=== PATIENT | male | born 1950 | race Two or more races ===

== ENCOUNTER 2016-07-27 09:58 | Emergency (ER) | payer MEDICARE, OTHER ==
[~2016-07-27] VITALS: Ht 165.1 cm; Wt 70.3 kg
[~2016-07-27 09:58] MED LIST: FLUO20CA36 PO; FOLI1TAB16 PO; GLIP5TAB13 PO; METO25TA6 PO; MIRT30TA8 PO; PYRI50TA9 PO; SEVE800T PO
[2016-07-27 12:05] VITALS: BP 125/65
== END 2016-07-27 12:16 | disposition home or self-care (01) ==
LOC: ER 10:45
DX: R05 Cough (principal); E11.9 Type 2 diabetes mellitus without complications; I12.0 Hypertensive chronic kidney disease with stage 5 chronic kidney disease or end stage renal disease; Z99.2 Dependence on renal dialysis; G62.9 Polyneuropathy, unspecified; H54.0 Blindness, both eyes; N18.6 End stage renal disease
CPT/HCPCS: 71020; 99284; A4606; Z7610

== ENCOUNTER 2017-05-31 07:05 | Inpatient (IN) | payer MEDICARE, OTHER ==
[~2017-05-31] VITALS: Ht 165.1 cm; Wt 68.5 kg
--- NOTE | 2017-05-31 07:07 | NUR ---
AAOX3, BIBRA 89 FROM [facility] FOR WEAKNESS AND DROWSY. PATIENT NORMALLY WALKS AFTER DIALYSIS BUT TODAY PATIENT WAS WEAK. SKIN IS WARM AND DRY. RESP IS EVEN AND UNLABORED WITH NAD NOTED. PATIENT FINISHED THE DIALYSIS. DR DIETRICH AT BS FOR EVAL.
[2017-05-31 07:26] LABS: BASOPHILS % (AUTO) 0.4 % (0.0-2.0); EOSINOPHILS # (AUTO) 0.1 /CMM (0.0-0.7); EOSINOPHILS % (AUTO) 1.7 % (0.0-6.0); HEMATOCRIT 29 % (39-51); HEMOGLOBIN 9.9 g/dL (13.5-17.5); LYMPHOCYTES # (AUTO) 0.5 /CMM (0.8-4.8); LYMPHOCYTES % (AUTO) 6.2 % (20.0-44.0); MEAN CORPUSCULAR HEMOGLOBIN 32 PG (26.0-33.0); MEAN CORPUSCULAR HGB CONC 34 g/dl (31.0-36.0); MEAN CORPUSCULAR VOLUME 94 fL (80-96); MONOCYTES # (AUTO) 0.7 /CMM (0.1-1.30); MONOCYTES % (AUTO) 9.2 % (2.0-12.0); NEUTROPHILS # (AUTO) 6.5 /CMM (1.8-8.9); NEUTROPHILS % (AUTO) 82.5 % (43.0-81.0); PLATELET COUNT (AUTO) 323 /CMM (150-450); RDW COEFFICIENT OF VARIATION 16.1 (11.5-15.0); RED BLOOD CELL COUNT(AUTO) 3.11 MIL/uL (4.5-6.0); WHITE BLOOD COUNT (AUTO) 7.9 K/uL (4.3-11.0)
[2017-05-31 07:35] LABS: CALCIUM, SERUM 9.1 mg/dL (8.5-10.1); CARBON DIOXIDE 36 mmol/L (21-32); CHLORIDE 97 mmol/L (98-107); CREATININE 4.6 mg/dL (0.6-1.3); GLUCOSE 111 mg/dL (74-106); POTASSIUM 3.6 mmol/L (3.5-5.1); SODIUM SERUM 140 mmol/L (136-145); UREA NITROGEN, BLOOD 20 mg/dL (7-18)
[2017-05-31 07:41] LABS: ALANINE AMINOTRANSFERASE 24 U/L (12-78); ALBUMIN 4.2 g/dL (3.4-5.0); ALKALINE PHOSPHATASE 93 U/L (46-116); ASPARTATE AMINOTRANSFERASE 5 U/L (15-37); BILIRUBIN,DIRECT 0.1 mg/dL (0.0-0.2); BILIRUBIN,TOTAL 0.6 mg/dL (0.2-1.0); TOTAL PROTEIN, SERUM 8.1 g/dL (6.4-8.2)
[2017-05-31 07:44] LABS: TROPONIN I < 0.017 ng/mL (0.00-0.056)
[2017-05-31 07:47] LABS: INR 0.94 (0.87-1.13); PROTHROMBIN TIME 9.8 SECS (9.5-12.7)
[2017-05-31] MEDS ORDERED: AMLO10TA2 PO (08:37)
[2017-05-31] MEDS ORDERED: LISI40TA4 PO (08:37)
[2017-05-31] MEDS ORDERED: FOLI0.8T23 PO (08:37)
[2017-05-31] MEDS ORDERED: METO2.5T2 PO (08:37)
[2017-05-31] MEDS ORDERED: FERR-58 PO (08:37)
[2017-05-31] MEDS ORDERED: POLY17PO4 PO (08:37)
[2017-05-31] MEDS ORDERED: TRAM50TA2 PO (08:37)
[2017-05-31] MEDS ORDERED: LABE100T PO (08:37)
[2017-05-31] MEDS ORDERED: FURO80TA85 PO (08:37)
[2017-05-31] MEDS ORDERED: ESOM40CA PO (08:37)
[2017-05-31] MEDS ORDERED: CYAN10006 IM (08:37)
[2017-05-31] MEDS ORDERED: SEVE800T8 PO (08:41)
[2017-05-31] MEDS ORDERED: DULO30CA2 PO (08:41)
[2017-05-31] MEDS ORDERED: POTA20TA83 PO (08:41)
[2017-05-31] MEDS ORDERED: PREG50CA PO (08:41)
[2017-05-31] MEDS ORDERED: GABA-534 PO (08:41)
--- NOTE | 2017-05-31 08:44 | NUR ---
panel on-call paged
--- NOTE | 2017-05-31 09:24 | NUR ---
[facility] nephrology on-call paged for admission
--- NOTE | 2017-05-31 09:51 | NUR ---
no call back from [facility] nephrology, paged again
--- NOTE | 2017-05-31 10:27 | NUR ---
REPORT GIVEN TO MARCOS MORRIS FOR 323.
[2017-05-31] MEDS ORDERED: CEFTRIAXONE 1GM BAG (ER ONLY) 50 ML IV ONE (10:30)
[2017-05-31 11:00] VITALS: BP 166/73
[2017-05-31] MEDS ORDERED: CEFTRIAXONE 1 G in IV D5W 50 ML IV ONE (11:00)
--- NOTE | 2017-05-31 11:00 | NUR ---
RN NOTES PATIENT AWAKE ALERT X2 AND VERBALLY RESPONSIVE, ABLE TO MAKE NEEDS KNOWN, RESPIRATIONS EVEN AND UNLABORED, DENIES ANY PAIN OR DISCOMFORT AT THIS TIME. LAC IV SITE PATENT AND INTACT, NO REDNESS OR INFILTRATION NOTED. DR. ROJAS AWARE OF PATIENTS ARRIVAL TO UNIT WILL CONTINUE TO CARRY OUT ALL ADMITTING ORDERS. SAFETY MEASURES IN PLACE, CLEAN, DRY AND COMFORTABLE, CALL LIGHT WITHIN EASY REACH WILL CONTINUE TO MONITOR
[2017-05-31] MEDS ORDERED: ONDANSETRON HCL/PF 4 MG/2 ML VIAL IV PRN (12:30)
[2017-05-31] MEDS ORDERED: hydrALAZINE HCL 25 MG TABLET PO PRN (12:30)
[2017-05-31] MEDS: ACETAMINOPHEN 650 MG/20.3 ML UDC PO PRN ×2 (13:57→20:33)
[2017-05-31] MEDS: PREGABALIN 25 MG CAPSULE PO SCH ×2 (13:57→17:08)
--- NOTE | 2017-05-31 13:57 | NUR ---
RN NOTES TYLENOL GIVEN FOR TEMP 100.6 MD AWARE CONTINUE TO MONITOR AND PROVIDE COOLING MEASURES PRN
[2017-05-31 16:00] VITALS: BP 148/66
[2017-05-31] MEDS ORDERED: FEE PK DOSING 1 MIN EA MC ONE (16:28)
[2017-05-31] MEDS ORDERED: DEXTROSE 50%-WATER 50 ML DISP.SYRIN IV PRN (16:30)
[2017-05-31] MEDS ORDERED: VANCOMYCIN 500 MG in IV D5W 100 ML IV PRN (16:30)
[2017-05-31] MEDS ORDERED: *INSULIN REGULAR(HUMULIN R)HUM 100 UNIT/ML VIAL SQ PRN (16:30)
[2017-05-31] MEDS ORDERED: VANCOMYCIN 1 GM in IV D5W 250 ML IV ONE (17:00)
--- NOTE | 2017-05-31 17:00 | NUR ---
RN NOTES STRAIGHT CATH ATTEMPTED TO COLLECT URINE SPECIMEN, NO URINE OUTPUT NOTED, UNABLE TO OBTAIN SAMPLE WILL CONTINUE TO ATTEMPT AND ENDORSE TO NEXT SHIFT IF UNABLE, PT REFUSES TO TAKE PICTURE OF L AV FISTULA WILL REATTEMPT AT LATER TIME AND ENDORSE TO ONCOMING SHIFT
[2017-05-31] MEDS: FUROSEMIDE 80 MG TABLET PO SCH (17:08)
[2017-05-31] MEDS: OSELTAMIVIR PHOSPHATE 75 MG CAPSULE PO SCH (17:08)
[2017-05-31] MEDS: LABETALOL HCL (100MG) 100 MG TABLET PO SCH (17:09)
[2017-05-31] MEDS: SEVELAMER CARBONATE 800 MG TABLET PO SCH (17:09)
[2017-05-31] MEDS: BLOOD SUGAR DIAGNOSTIC 1 EACH STRIP IN SCH ×2 (17:17→22:25)
[2017-05-31] MEDS: INSULIN REGULAR, HUMAN 100 UNIT/ML 3 ML VIAL SQ PRN (17:49)
[2017-05-31] MEDS: MEROPENEM 500 MG in IV NS 0.9% 50 ML IV SCH (18:19)
--- NOTE | 2017-05-31 19:05 | NUR ---
RN NOTES PATIENT AWAKE ALERT X2 AND VERBALLY RESPONSIVE, ABLE TO MAKE NEEDS KNOWN, RESPIRATIONS EVEN AND UNLABORED, DENIES ANY PAIN OR DISCOMFORT AT THIS TIME. RAC IV SITE PATENT AND INTACT, NO REDNESS OR INFILTRATION NOTED R AV FISTULA WITH POSITIVE BRUIT AND THRILL NO BLEEDING NOTED. RAPID INFLUENZA AND SPUTUM SPECIMEN SENT TO LAB, SAFETY MEASURES IN PLACE, CLEAN, DRY AND COMFORTABLE, CALL LIGHT WITHIN EASY REACH WILL CONTINUE TO MONITOR,TEMP NOTED AT 100.2 COOLING MEASURES PROVIDED ORDERED TYLENOL TO BE GIVEN WHEN DUE, ENDORSED TO NEXT SHIFT FOR CONTINUITY OF CARE
--- NOTE | 2017-05-31 19:20 | NUR ---
TELE/RN OPENING NOTES PT AWAKE, HOB ELEVATED HIGH FOWLERS POSITION. ON ROOM AIR, BREATHING EVEN AND UNLABORED. NON PRODUCTIVE COUGH NOTED. A/OX2 OCCITAN SPEAKING. ON TELE MONITOR SHOWING SINUS RHYTHM WITH HEART RATE 73. IV TO RAC PATENT AND INTACT RUNNING IV ABX. SHELBY AV FISTULA NOTED. BED IN LOW/LOCKED POSITION WITH CALL LIGHT IN REACH. SIDE RAILS UPX2. WILL CONTINUE TO MONITOR
[2017-05-31 20:00] VITALS: BP 128/65
--- NOTE | 2017-05-31 20:33 | NUR ---
TELE/RN NOTES PT HAVING TEMP 99.9F PRN TYLENOL ADMINISTERED. WILL RECHECK EFFECTIVENESS
[2017-05-31] MEDS: HEPARIN SODIUM, PORCINE 5000 UNITS/1 ML VIAL SQ SCH (20:34)
[2017-05-31] MEDS: GABAPENTIN 300 MG CAPSULE PO SCH (22:25)
[2017-05-31] MEDS: GUAIFENESIN/D-METHORPHAN HB 5 ML UDC PO PRN (22:30)
--- NOTE | 2017-05-31 22:46 | NUR ---
TELE/RN NOTES TEMP RECHECKED=99.3F POST ADMINISTRATION OF PRN TYLENOL AND COOLING MEASURES. WILL CONTINUE TO MONITOR PT ALSO COMPLAINING OF COUGH. ADMINISTERED PRN ROBITUSSIN ORDERED.
[2017-06-01] VITALS (7 sets, daily range): BP systolic 115–149; BP diastolic 57–81
[2017-06-01] MEDS: MEROPENEM 500 MG in IV NS 0.9% 50 ML IV SCH ×2 (05:27→16:40)
--- NOTE | 2017-06-01 06:02 | NUR ---
TELE/RN NOTES PT HAS ORDER FOR SPUTUM CULTURE. PREVIOUSLY SENT SPECIMEN WAS NOT ENOUGH. ENCOURAGED PT COUGH AND EXPECTORATE MORE TO PROVIDE TO LAB. VERBALIZED UNDERSTANDING. PER PT, ABLE TO URINATE HOWEVER PT DID NOT URINATE THROUGHOUT SHIFT. BLADDER SCANNER SHOWED 14ML. WILL ENDORSE TO DAY SHIFT TO RECHECK
[2017-06-01] MEDS: BLOOD SUGAR DIAGNOSTIC 1 EACH STRIP IN SCH ×4 (06:43→21:48)
[2017-06-01] MEDS: TRAMADOL HCL 50 MG TABLET PO PRN ×2 (06:43→15:41)
--- NOTE | 2017-06-01 07:00 | NUR ---
TELE/RN CLOSING NOTES PT AWAKE, RESTING IN BED. HOB ELEVATED. ON ROOM AIR, BREATHING EVEN AND UNLABORED. A/OX2. TURKMEN/SOME PASHTO SPEAKING. ON TELE MONITOR SINUS RHYTHM WITH HR 69. AFEBRILE FOR REMAINDER OF SHIFT. PT C/O SHARP MEDIAL ABDOMINAL PAIN THAT IS AGGRAVATED WITH COUGHING. ADMINISTERED ULTRAM ORDERED. ENCOURAGED PT TO EXPECTORATE MORE PHLEGM TO BE SENT TO LAB. PT UNABLE TO PROVIDE URINE SAMPLE. IV TO RAC PATENT AND INTACT. SHELBY AV FISTULA NOTED, WRAPPED WITH DRESSING FROM DIALYSIS CENTER. PT REFUSED TO REMOVED DRESSING. BED IN LOW/LOCKED POSITION, CALL LIGHT IN REACH. SIDE RAILS UPX2. PT SLEPT WELL DURING THE SHIFT. WILL ENDORSE TO AM SHIFT LAURO.
--- NOTE | 2017-06-01 07:30 | NUR ---
REFRIGERATION PLANT OPERATOR NOTES PATIENT IN BED, LYING. AWAKE, A/O X2. FORGETFUL, REORIENT. ON TELE MONITOR SINUS RHYTHM HR 79. BREATHING NON LABORED, ON ROOM AIR. INSTRUCTED TO USE CALL LIGHT IF HE NEEDS ASSISTANCE, VERBALIZED UNDERSTANDING. FOR SPUTUM CX AND URINE CX TO FOLLOW UP. WILL CONT TO MONITOR.
[2017-06-01 08:07] LABS: CALCIUM, SERUM 8.4 mg/dL (8.5-10.1); MAGNESIUM 2.3 mg/dL (1.8-2.4); PHOSPHORUS 4.6 mg/dL (2.5-4.9); POTASSIUM 4.2 mmol/L (3.5-5.1)
[2017-06-01 08:13] LABS: BASOPHILS % (AUTO) 0.5 % (0.0-2.0); EOSINOPHILS # (AUTO) 0.1 /CMM (0.0-0.7); EOSINOPHILS % (AUTO) 1.4 % (0.0-6.0); HEMATOCRIT 29 % (39-51); HEMOGLOBIN 9.8 g/dL (13.5-17.5); LYMPHOCYTES # (AUTO) 0.9 /CMM (0.8-4.8); LYMPHOCYTES % (AUTO) 14.7 % (20.0-44.0); MEAN CORPUSCULAR HEMOGLOBIN 32 PG (26.0-33.0); MEAN CORPUSCULAR HGB CONC 33 g/dl (31.0-36.0); MEAN CORPUSCULAR VOLUME 95 fL (80-96); MONOCYTES % (AUTO) 15.2 % (2.0-12.0); NEUTROPHILS # (AUTO) 4.4 /CMM (1.8-8.9); NEUTROPHILS % (AUTO) 68.2 % (43.0-81.0); PLATELET COUNT (AUTO) 274 /CMM (150-450); RDW COEFFICIENT OF VARIATION 15.9 (11.5-15.0); RED BLOOD CELL COUNT(AUTO) 3.09 MIL/uL (4.5-6.0); WHITE BLOOD COUNT (AUTO) 6.5 K/uL (4.3-11.0)
[2017-06-01 08:23] LABS: CREATININE 8.4 mg/dL (0.6-1.3)
[2017-06-01] MEDS: POLYETHYLENE GLYCOL 3350 17 GM POWD.PACK PO SCH (08:55)
[2017-06-01] MEDS: METOLAZONE 2.5 MG TABLET PO SCH (08:56)
[2017-06-01] MEDS: LISINOPRIL (20MG) 20 MG TABLET PO SCH (08:56)
[2017-06-01] MEDS: SEVELAMER CARBONATE 800 MG TABLET PO SCH ×3 (08:56→17:10)
[2017-06-01] MEDS: PREGABALIN 25 MG CAPSULE PO SCH ×3 (08:56→16:22)
[2017-06-01] MEDS: LABETALOL HCL (100MG) 100 MG TABLET PO SCH ×2 (08:56→16:22)
[2017-06-01] MEDS: VIT B CMPLX 3/FA/VIT C/BIOTIN 1 TAB TABLET PO SCH (08:56)
[2017-06-01] MEDS: FUROSEMIDE 80 MG TABLET PO SCH ×2 (08:56→16:22)
[2017-06-01] MEDS: FERROUS SULFATE (325 MG) 325 MG/TAB TABLET PO SCH (08:57)
[2017-06-01] MEDS: DULOXETINE HCL 30 MG CAPSULE.DR PO SCH (08:57)
[2017-06-01] MEDS: AMLODIPINE BESYLATE 10 MG TABLET PO SCH (08:57)
[2017-06-01] MEDS: OSELTAMIVIR PHOSPHATE 75 MG CAPSULE PO SCH (08:57)
[2017-06-01] MEDS: PANTOPRAZOLE 40 MG TABLET.DR PO SCH (08:58)
[2017-06-01] MEDS: HEPARIN SODIUM, PORCINE 5000 UNITS/1 ML VIAL SQ SCH ×2 (09:06→21:44)
[2017-06-01] MEDS: INSULIN REGULAR, HUMAN 100 UNIT/ML 3 ML VIAL SQ PRN ×2 (11:34→16:38)
--- NOTE | 2017-06-01 12:03 | NUR ---
CREATININE 8.[address] YOSSI SCHMITZ, PATIENT TO HAVE DIALYSIS IN AM. MD IS AWARE OF PATIENTS ABDOMINAL PAIN, FOR GI CONSULT.
[2017-06-01 13:53] LABS: BASOPHILS % (MANUAL) 0 % (0.0-2.0); EOSINOPHILS % (MANUAL) 1 % (0-4); LYMPHOCYTES % (MANUAL) 17 % (16-48); MONOCYTES % (MANUAL) 13 % (0-11.0); NEUTROPHILS % (MANUAL) 69 (42-76)
--- NOTE | 2017-06-01 14:45 | NUR ---
RENAL HIGH 80GM PER RD RECOMMENDATION, MD INFORMED.
[2017-06-01] MEDS: GUAIFENESIN/D-METHORPHAN HB 5 ML UDC PO PRN (15:42)
--- NOTE | 2017-06-01 15:44 | NUR ---
PATIENT NOTED WITH NON PRODUCTIVE COUGH, TUG HAND ROBITUSSIN DM 5ML PO PRN, WILL REASSESS.
--- NOTE | 2017-06-01 15:48 | NUR ---
PATIENT REPORTED SORE THROAT, NOTIFIED DR. SY. WILL MEDICATE PATIENT WITH CEPACOL LOZENGES PRN ORDERED.
[2017-06-01] MEDS ORDERED: MENTHOL/CETYLPYRD (CEPACOL) 1 LOZ LOZENGE PO PRN (16:00)
[2017-06-01] MEDS: LACTOBACILLUS RHAMNOSUS GG 1 EACH CAP.SPRINK PO SCH (16:22)
--- NOTE | 2017-06-01 17:30 | NUR ---
STRAIGHT CATH. COLLECTED URINE FOR TEST, SEND TO LAB FOR URINE CX ORDERED.
--- NOTE | 2017-06-01 18:20 | NUR ---
MS RN CLOSING NOTES PATIENT IN BED, A/O X2-3. BREATHING EVEN AND NON LABORED. HD IN AM PER MD. ON ANTIBIOTIC WITH NO ADVERSE REACTION, AFEBRILE. RIGHT AC G18 PATENT AND INTACT, FLUSHES WELL. AMBULATE WITH ASSIST/ WALKER, BALANCE UNSTEADY. INSTRUCTED PATIENT TO USE CALL LIGHT IF HE NEEDS ASSISTANCE, VERBALIZED UNDERSTANDING. PATIENT IS SEEN BY DR. FISHER/GI TODAY, PATIENT TO HAVE US GALLBLADDER AND EGD IN AM. WILL PLACE PATIENT NPO EXCEPT MEDS MIDNIGHT ORDERED. PER MD TO GIVE MAALOX PO PRN TO PATIENT FOR STOMACH UPSET NOTED AND ACKNOWLEDGED. WILL ENDORSE TO AGILE BUSINESS ANALYST RN FOR LAURO.
[2017-06-01] MEDS ORDERED: MAG HYDROX/AL HYDROX/SIMETH 30 ML UDC PO PRN (18:30)
--- NOTE | 2017-06-01 18:43 | NUR ---
PATIENT CONSENTED THE PROCEDURE-EGD IN AM. CONSENT FORM PLACE IN THE CHART. WILL ENDORSE TO COLORING ROOM MAN RN FOR LAURO.
--- NOTE | 2017-06-01 19:45 | NUR ---
MS RN OPENING NOTES RECEIVED PATIENT SLEEPING IN BED I9N SEMI JOHNSON POSITION. A & O X 2-3, ABLE TO MAKE NEEDS KNOWN. NO SOB, NO C/O PAIN, NO ACUTE DISTRESS NOTED. IV ACCESS TO RAC, INTACT PATENT. SHELBY AV FISTULA, INTACT PATENT. WILL BE NPO AFTER MIDNIGHT DUE TO SCHEDULED EGD IN AM. SAFETY MEASURES IN PLACE. BED IN LOW LOCKED POSITION. CALL LIGHT WITHIN REACH. WILL OBSERVE CLOSELY.
--- NOTE | 2017-06-01 21:39 | NUR ---
CLARIFIED HEPARIN ORDER CALLED DR. FISHER TO CLARIFY IF HEPARIN NEEDS TO BE HELD DUE TO SCHEDULED EGD IN AM ON 06/02/17. LABS REVIEWED WITH & ADVISED TO GIVE HEPARIN SCHEDULED, NO NEED TO HOLD HEPARIN.
[2017-06-01] MEDS: GABAPENTIN 300 MG CAPSULE PO SCH (21:43)
--- NOTE | 2017-06-02 00:41 | NUR ---
MS RN NOTES PT SLEEPING INTERMITTENTLY, REMINDED HIM AGAIN WITH USE OF NURSE CHEMICAL DEPENDENCY ( ANOTHER RN ) NOT TO EAT OR DRINK AFTER MIDNIGHT EXCEPT PO MEDS. PT VERBALIZED UNDERSTANDING.
[2017-06-02] MEDS: MEROPENEM 500 MG in IV NS 0.9% 50 ML IV SCH ×2 (04:29→18:45)
[2017-06-02] MEDS: BLOOD SUGAR DIAGNOSTIC 1 EACH STRIP IN SCH ×4 (06:45→21:48)
--- NOTE | 2017-06-02 06:45 | NUR ---
MS RN CLOSING NOTES PATIENT SLEPT INTERMITTENTLY @ NIGHT IN SEMI JOHNSON POSITION. A & O X 2-3, SPEAKS GREEK. NO C/O PAIN, SOB, ACUTE DISTRESS/DISCOMFORT NOTED. NPO AFTER MIDNIGHT, EGD/US GALLBLADDER SCHEDULED IN AM. IV ACCESS TO RAC, SL & SHELBY AV FISTULA, INTACT PATENT. ALL SCHEDULED MEDS GIVEN & TOLERATED WELL. NO S/S OF ACTIVE BLEEDING NOTED. ON HEPARIN Q 12 HRS. SAFETY MEASURES IN PLACE, BED ALARM ON & IN LOW LOCKED POSITION. CALL LIGHT WITHIN REACH. WILL ENDORSE TO AM RN FOR CONTINUITY OF CARE.
[2017-06-02] MEDS: PANTOPRAZOLE 40 MG TABLET.DR PO SCH (07:30)
--- NOTE | 2017-06-02 07:30 | NUR ---
AM RN NOTE Received patient sleeping comfortably in his bed no acute distress noted. No SOB noted resp even and non-labored. IV site intact and patent. SHELBY AV fistula intact. On NPO status due to EGD scheduled this am. Will continue to monitor. Bed in low locked position.
[2017-06-02 07:38] LABS: CALCIUM, SERUM 8.2 mg/dL (8.5-10.1); POTASSIUM 5.3 mmol/L (3.5-5.1)
[2017-06-02 07:43] LABS: CREATININE 10.7 mg/dL (0.6-1.3)
[2017-06-02 08:00] VITALS: BP 118/71
[2017-06-02] MEDS: SEVELAMER CARBONATE 800 MG TABLET PO SCH ×3 (08:00→17:26)
[2017-06-02] MEDS: FUROSEMIDE 80 MG TABLET PO SCH ×3 (09:00→17:27)
[2017-06-02] MEDS: LACTOBACILLUS RHAMNOSUS GG 1 EACH CAP.SPRINK PO SCH ×3 (09:00→17:26)
[2017-06-02] MEDS: HEPARIN SODIUM, PORCINE 5000 UNITS/1 ML VIAL SQ SCH ×3 (09:00→21:01)
[2017-06-02] MEDS: VIT B CMPLX 3/FA/VIT C/BIOTIN 1 TAB TABLET PO SCH ×2 (09:00→10:20)
[2017-06-02] MEDS: LABETALOL HCL (100MG) 100 MG TABLET PO SCH ×3 (09:00→17:35)
[2017-06-02] MEDS: FERROUS SULFATE (325 MG) 325 MG/TAB TABLET PO SCH ×2 (09:00→10:21)
[2017-06-02] MEDS: POLYETHYLENE GLYCOL 3350 17 GM POWD.PACK PO SCH (09:00)
[2017-06-02] MEDS: LISINOPRIL (20MG) 20 MG TABLET PO SCH ×2 (09:00→10:22)
[2017-06-02] MEDS: AMLODIPINE BESYLATE 10 MG TABLET PO SCH ×2 (09:00→10:21)
[2017-06-02] MEDS: DULOXETINE HCL 30 MG CAPSULE.DR PO SCH ×2 (09:00→10:21)
[2017-06-02] MEDS: METOLAZONE 2.5 MG TABLET PO SCH ×2 (09:00→10:20)
[2017-06-02] MEDS: PREGABALIN 25 MG CAPSULE PO SCH ×4 (09:00→17:26)
--- NOTE | 2017-06-02 09:50 | NUR ---
AM RN NOTE All routine PO meds and Heparing SQ held due to EGD procedure and CN (Amari) made aware.
--- NOTE | 2017-06-02 09:53 | NUR ---
AM RN NOTE Patient awake left for EGD procedure at this time as accompanied by OR staff. Isolation precautions observed.
[2017-06-02] MEDS: TRAMADOL HCL 50 MG TABLET PO PRN (10:20)
[2017-06-02] MEDS: OSELTAMIVIR PHOSPHATE 75 MG CAPSULE PO SCH (10:20)
--- NOTE | 2017-06-02 10:25 | NUR ---
AM RN NOTE Received call from OR (Anesthesiologist and Guillaume RN) that pt stated he at pancake this AM. Notified Anesthesiologist that pt did not eat breakfast this am and none of the meds were given. Per Anesthesiologist reschedule EGD for sunday06/04/2017. Dr. Smith called and made aware and Chem 7 ordered for Sunday AM lab per MD. Diet order and medications resumed per Dr. Smith. Meds given as ordered. Will continue to monitor.
[2017-06-02] MEDS: INSULIN REGULAR, HUMAN 100 UNIT/ML 3 ML VIAL SQ PRN (13:02)
--- NOTE | 2017-06-02 14:15 | NUR ---
AM RN NOTE Patient started on dialysis by dialysis nurse at this time.
[2017-06-02] MEDS ORDERED: VANCOMYCIN 1 GM in IV D5W 250 ML IV ONE (15:00)
--- NOTE | 2017-06-02 15:55 | NUR ---
AM RN NOTE US GALLBLADDER RESULTS NOTIFIED TO (GI) WITH NNO AT THIS TIME.
[2017-06-02 16:00] VITALS: BP 121/78
[2017-06-02 16:40] VITALS: BP 121/78
[2017-06-02] MEDS: ACETAMINOPHEN 650 MG/20.3 ML UDC PO PRN (16:40)
--- NOTE | 2017-06-02 16:45 | NUR ---
AM RN NOTE Patient noted with temp 102.0 orally. Tylenol 650mg PO given as ordered for fever. Cold compress applied. Will continue to monitor. CN made aware.
--- NOTE | 2017-06-02 17:30 | NUR ---
AM RN NOTE Patient finished with dialysis at this time with 2700 ml output.
--- NOTE | 2017-06-02 17:45 | NUR ---
AM RN NOTE Rechecked temp 98.5
--- NOTE | 2017-06-02 18:31 | NUR ---
AM RN NOTE Patient eating his dinner, no acute distress noted at this time. Will continue to monitor and endorse care to next shift.
--- NOTE | 2017-06-02 19:29 | NUR ---
ms/rn opening notes PATIENT IN BED, REQUIRE FREQUENT REORIENTATION PATIENT TRYING TO GET UP THE BED, BED ALARM ON, ALERT, ORIENTED X2. INSTRUCTED TO CALL FOR HELP AND ABLE TO COOPERATE, WEAK AND ON ISOLATION DUE TO INFLUENZA, CONFUSED AND VERBALIZE WANT TO GO HOME. WILL MONITOR. RESPIRATIONS EVEN AND UNLABORED, SKIN WARM. FOREST LANDSCAPE ECOLOGY PROFESSOR AT BEDSIDE ATTENDING TO HIS NEEDS AT THIS TIME.
--- NOTE | 2017-06-02 19:40 | NUR ---
MS/RN NOTES PATIENT TEMPERATURE AT 100.8 DEG F, LAST TYLENO 650MG PO WAS GIVEN 2 HOURS AGO.
[2017-06-02] MEDS: GUAIFENESIN/D-METHORPHAN HB 5 ML UDC PO PRN (19:45)
[2017-06-02 20:00] VITALS: BP 143/67
[2017-06-02] MEDS: GABAPENTIN 300 MG CAPSULE PO SCH (21:48)
--- NOTE | 2017-06-02 22:32 | NUR ---
receheck blood sugar at 162
[2017-06-03 03:55] VITALS: BP 140/70
[2017-06-03] MEDS: MEROPENEM 500 MG in IV NS 0.9% 50 ML IV SCH (05:55)
[2017-06-03] MEDS: BLOOD SUGAR DIAGNOSTIC 1 EACH STRIP IN SCH ×4 (06:04→21:59)
[2017-06-03] MEDS: INSULIN REGULAR, HUMAN 100 UNIT/ML 3 ML VIAL SQ PRN ×2 (06:10→17:44)
--- NOTE | 2017-06-03 06:34 | NUR ---
MS/RN NOTES PATIENT ABLE TO SLEEP DURING THE NIGHT, SOME REORIENTATION AND MONITORING FOR SAFETY , ABLE TO COOPERATE TO CARE, TOLERATE MEDS. NO PAIN VERBALIZED OR OBSERVED. RESPIRATIONS EVEN AND UNLABORED, CALL LIGHTS WITHIN REACH, BED IN LOCK POSIITON WILL CONTINUE MONITORING.
[2017-06-03 07:03] LABS: POTASSIUM 4.2 mmol/L (3.5-5.1)
[2017-06-03 07:10] LABS: CREATININE 8.4 mg/dL (0.6-1.3)
--- NOTE | 2017-06-03 07:41 | NUR ---
RN NOTES RECEIVED PT. PT IS STABLE AND SLEEPING IN BED. NO S/S OF DISTRESS OR SOB. PT DOES NOT APPEAR TO BE IN PAIN. PT IS ON RA, O2 SAT WNL. IV ACCESS LOCATED ON RIGHT AC 18G SL, AV FISTULA LOCATED ON LEFT UPPER ARM. PER MACHINE LACER REPORT, PT TO HAVE EGD ON MONDAY 06/[address] FISHER, PT TO BE NPO MIDNIGHT. WILL ENDORSE TO MACHINE LACER. SAFETY MEASURES IN PLACE, CALL LIGHT WITHIN REACH. WILL CONTINUE TO MONITOR.
[2017-06-03 08:00] VITALS: BP 118/78
[2017-06-03] MEDS: SEVELAMER CARBONATE 800 MG TABLET PO SCH ×3 (08:00→17:29)
[2017-06-03] MEDS: HEPARIN SODIUM, PORCINE 5000 UNITS/1 ML VIAL SQ SCH ×2 (08:58→21:00)
[2017-06-03] MEDS: AMLODIPINE BESYLATE 10 MG TABLET PO SCH (08:59)
[2017-06-03] MEDS: PANTOPRAZOLE 40 MG TABLET.DR PO SCH (08:59)
[2017-06-03] MEDS: LISINOPRIL (20MG) 20 MG TABLET PO SCH (08:59)
[2017-06-03] MEDS: OSELTAMIVIR PHOSPHATE 75 MG CAPSULE PO SCH (09:00)
[2017-06-03] MEDS: VIT B CMPLX 3/FA/VIT C/BIOTIN 1 TAB TABLET PO SCH (09:00)
[2017-06-03] MEDS: LABETALOL HCL (100MG) 100 MG TABLET PO SCH ×2 (09:00→17:00)
[2017-06-03] MEDS: FERROUS SULFATE (325 MG) 325 MG/TAB TABLET PO SCH (09:00)
[2017-06-03] MEDS: PREGABALIN 25 MG CAPSULE PO SCH ×3 (09:00→17:29)
[2017-06-03] MEDS: LACTOBACILLUS RHAMNOSUS GG 1 EACH CAP.SPRINK PO SCH ×2 (09:00→17:29)
[2017-06-03] MEDS: DULOXETINE HCL 30 MG CAPSULE.DR PO SCH (09:00)
[2017-06-03] MEDS: FUROSEMIDE 80 MG TABLET PO SCH ×2 (09:00→17:29)
[2017-06-03] MEDS: METOLAZONE 2.5 MG TABLET PO SCH (09:00)
[2017-06-03] MEDS: POLYETHYLENE GLYCOL 3350 17 GM POWD.PACK PO SCH (09:04)
--- NOTE | 2017-06-03 10:09 | NUR ---
RN NOTES PT WAS AT FIRST COMPLIANT AND AGREEABLE WITH MEDICATION ADMINISTRATION. ONCE MEDICATION WAS PULLED, AND PLACED IN MEDICINE CUP PT REFUSED MOST MEDS. BLOOD PRESSURE MEDICATION NON-ADMIN DUE TO ACCEPTABLE BP. IN ADDITION PT REFUSED HEPARIN AFTER IT WAS DRAWN. REFUSAL POSSIBLY DUE TO CONFUSION, WILL F/U WITH PT FOR MEDICATION COMPLIANCE.
--- NOTE | 2017-06-03 12:43 | NUR ---
RN NOTES BS 91 UPON 1200 ACCUCHECK. INSULIN HELD. LYRICA AND RENVELA ADMINISTERED TO PATIENT, PACKAGING DAMAGED AND UNABLE TO SCAN.
[2017-06-03] MEDS: ACETAMINOPHEN 650 MG/20.3 ML UDC PO PRN (14:54)
--- NOTE | 2017-06-03 15:07 | NUR ---
RN NOTES PT PRESENTING WITH LOW GRADE FEVER OF 99.8 WITH C/O MILD GENERALIZED PAIN OF 2/10. TYLENOL PRN GIVEN. WILL CONTINUE TO MONITOR.
[2017-06-03 16:00] VITALS: BP 121/81
--- NOTE | 2017-06-03 18:27 | NUR ---
RN CLOSING NOTES PT IN ROOM RESTING. A/OX3. PT IS SLIGHTLY CONFUSED. NO S/S OF DISTRESS OR LABORED BREATHING. NO C/O PAIN AT THIS TIME. PT IS NOT COMPLIANT WITH ALL MEDICATIONS. THROUGHOUT THE SHIFT PATIENT HAS EITHER REFUSED SOME MEDICATIONS OR ATTEMPTED TO MANIPULATE OR POCKET MEDICATIONS IN HIS CHEEKS. PT SCHEDULED FOR EGD IN AM TOMORROW MORNING 06/04/17. PT TO BE NPO BY MIDNIGHT. HEPARIN TO BE HELD IN PM FOR AM SX. SAFETY MEASURES IN PLACE, CALL LIGHT WITHIN REACH. WILL ENDORSE TO OUTFITTER CABIN FOR LAURO.
--- NOTE | 2017-06-03 19:30 | NUR ---
MS/RN OPENING NOTES PT ASLEEP, AROUSABLE TO NAME. A/OX2. APPEARS COMFORTABLE AND NOT IN ANY PAIN. ON ROOM AIR, BREATHING EVEN AND UNLABORED. NO S/S OF SOB OR DISTRESS. SHELBY AV FISTULA. RAC PATENT AND INTACT. PT SCHEDULED FOR EGD TOMORROW. CONSENT SIGNED IN THE CHART. PT TO BE NPO POST MIDNIGHT. BED IN LOW/LOCKED POSITION, CALL LIGHT IN REACH. SIDE RAILS UPX2, BED ALARM ON FOR SAFETY. WILL CONTINUE TO MONITOR
[2017-06-03 20:00] VITALS: BP 104/51
[2017-06-03] MEDS: GABAPENTIN 300 MG CAPSULE PO SCH (21:59)
[2017-06-04] VITALS (13 sets, daily range): BP systolic 101–148; BP diastolic 55–70
[2017-06-04] MEDS: BLOOD SUGAR DIAGNOSTIC 1 EACH STRIP IN SCH ×4 (06:42→21:03)
[2017-06-04] MEDS: INSULIN REGULAR, HUMAN 100 UNIT/ML 3 ML VIAL SQ PRN ×3 (06:43→17:22)
[2017-06-04 06:46] LABS: CALCIUM, SERUM 8.1 mg/dL (8.5-10.1); POTASSIUM 4.4 mmol/L (3.5-5.1)
[2017-06-04 06:56] LABS: CREATININE 11.4 mg/dL (0.6-1.3)
[2017-06-04] MEDS: PANTOPRAZOLE 40 MG TABLET.DR PO SCH (07:30)
--- NOTE | 2017-06-04 07:30 | NUR ---
RN CLOSING NOTES PT AWAKE, ON ROOM AIR, BREATHING EVEN AND UNLABORED. IV TO RAC PATENT AND INTACT. PT NPO SINCE MIDNIGHT. EGD CONSENT AND CHECKLIST SIGNED AND FLAGGED IN CHART. NO SIGNIFICANT CHANGES OVERNIGHT. KEPT PT COMFORTABLE. ALL NEEDS MET. BED IN LOW/LOCKED POSITION WITH CALL LIGHT IN REACH. SIDE RAILS UPX2. ENDORSED TO AM SHIFT LAURO.
[2017-06-04] MEDS: SEVELAMER CARBONATE 800 MG TABLET PO SCH ×3 (08:00→17:15)
--- NOTE | 2017-06-04 08:00 | NUR ---
MS RN NOTES PT AWAKE, ALERT ORIENTED X2 BREATHING EVEN AND UNLABORED. IV TO RAC PATENT AND INTACT. PT NPO . EGD SCHEDULED AT 1030 AM . PATIENT IN BED, BED IN LOW LOCKED POSITION , CALL LIGHT WITHIN REACH. WILL CONTINUE TO MONITOR.
[2017-06-04] MEDS: FERROUS SULFATE (325 MG) 325 MG/TAB TABLET PO SCH (09:00)
[2017-06-04] MEDS: AMLODIPINE BESYLATE 10 MG TABLET PO SCH (09:00)
[2017-06-04] MEDS: OSELTAMIVIR PHOSPHATE 75 MG CAPSULE PO SCH (09:00)
[2017-06-04] MEDS: HEPARIN SODIUM, PORCINE 5000 UNITS/1 ML VIAL SQ SCH ×2 (09:00→21:03)
[2017-06-04] MEDS: VIT B CMPLX 3/FA/VIT C/BIOTIN 1 TAB TABLET PO SCH (09:00)
[2017-06-04] MEDS: FUROSEMIDE 80 MG TABLET PO SCH ×2 (09:00→17:00)
[2017-06-04] MEDS: LABETALOL HCL (100MG) 100 MG TABLET PO SCH ×2 (09:00→17:00)
[2017-06-04] MEDS: POLYETHYLENE GLYCOL 3350 17 GM POWD.PACK PO SCH (09:00)
[2017-06-04] MEDS: LACTOBACILLUS RHAMNOSUS GG 1 EACH CAP.SPRINK PO SCH ×2 (09:00→17:14)
[2017-06-04] MEDS: LISINOPRIL (20MG) 20 MG TABLET PO SCH (09:00)
[2017-06-04] MEDS: PREGABALIN 25 MG CAPSULE PO SCH ×3 (09:00→17:15)
[2017-06-04] MEDS: DULOXETINE HCL 30 MG CAPSULE.DR PO SCH (09:00)
[2017-06-04] MEDS: METOLAZONE 2.5 MG TABLET PO SCH (09:00)
--- NOTE | 2017-06-04 10:30 | NUR ---
MS RN NOTES PATIENT IN STABLE CONDITION ALERT, ORIENTED X2, VS WNL. TRANSFERRED TO OR FOR EGD.
--- NOTE | 2017-06-04 11:15 | NUR ---
MS RN NOTES PATIENT RETURNED FROM OR S/P EGD WITH DIAGNOSIS OF GASTRITIS. ORDERS NOTED AND CARRIED OUT. PATIENT IN STABLE CONDITION. ALERT, ORIENTED X2 NO SOB OR ACUTE DISTRESS NOTED. BED IN LOW LOCKED POSITION. CALL LIGHT WITHIN REACH. VS WNL MONITORING Q15 MIN PER PROTOCOL.
[2017-06-04] MEDS ORDERED: OSELTAMIVIR PHOSPHATE 75 MG CAPSULE PO ONE (17:00)
--- NOTE | 2017-06-04 18:11 | NUR ---
MS RN NOTES PATIENT IN BED RESTING. ALERT, ORIENTED X2. PATIENT RECEIVING DIALYSIS CURRENTLY TOLERATING WELL. ALL DUE MEDICATIONS ADMINISTERED. ALL NEEDS MET. WILL ENDORSE TO PM SHIFT LAURO.
--- NOTE | 2017-06-04 19:37 | NUR ---
MS RN INITIAL NOTES PT IS IN BED RESTING. S/P HD NO FLUID WAS REMOVED. PT IS AWAKE AND ALERT, ABLE TO MAKE NEEDS KNOWN. NO SIGNS OF SOB OR DISTRESS, BREATHING EVENLY AND UNLABORED ON RA. IV ACCESS IS INTACT AND PATENT. BED IS IN LOW AND LOCKED POSITION, CALL LIGHT WITHIN REACH. WILL CONTINUE TO MONITOR PT
[2017-06-04] MEDS: GABAPENTIN 300 MG CAPSULE PO SCH (21:03)
--- NOTE | 2017-06-04 21:10 | NUR ---
MS RN NOTE PT BS IS 165. PT REFUSED INSULIN. EDUCATION WAS GIVEN. WILL CONTINUE TO MONITOR PT
[2017-06-04] MEDS: GUAIFENESIN/D-METHORPHAN HB 5 ML UDC PO PRN (21:46)
[2017-06-05] MEDS: BLOOD SUGAR DIAGNOSTIC 1 EACH STRIP IN SCH ×2 (05:56→12:29)
--- NOTE | 2017-06-05 06:17 | NUR ---
MS RN CLOSING NOTES PT IS IN BED RESTING, NO SIGNS OF SOB OR DISTRESS. BREATHING EVENLY AND UNLABORED. NO ACUTE CHANGES THROUGHOUT MY SHIFT. ALL NEEDS WERE ANTICIPATED AND MET. BED IS IN LOW AND LOCKED POSITION, CALL LIGHT WITHIN REACH. WILL ENDORSE TO DAYSHIFT.
[2017-06-05 06:56] LABS: CALCIUM, SERUM 7.9 mg/dL (8.5-10.1); POTASSIUM 4.7 mmol/L (3.5-5.1)
[2017-06-05 07:02] LABS: CREATININE 9.5 mg/dL (0.6-1.3)
--- NOTE | 2017-06-05 07:10 | NUR ---
RN NOTES PT IS RESTING COMFORTABLY IN BED, NO SIGNS OF DISTRESS NOTED. PT IS ON 2L O2 FOR COMFORT, RESPIRATIONS ARE EVEN AND UNLABORED. IV ON RAC INTACT AND PATENT AND SHELBY AV FISTULA INTACT. SAFETY MEASURES ARE IN PLACE, CALL LIGHT IS IN REACH. WILL CONTINUE TO MONITOR.
[2017-06-05 08:00] VITALS: BP 147/76
[2017-06-05] MEDS: PANTOPRAZOLE 40 MG TABLET.DR PO SCH (08:00)
[2017-06-05] MEDS: SEVELAMER CARBONATE 800 MG TABLET PO SCH ×2 (08:00→12:12)
[2017-06-05] MEDS: HEPARIN SODIUM, PORCINE 5000 UNITS/1 ML VIAL SQ SCH (09:00)
[2017-06-05] MEDS: PREGABALIN 25 MG CAPSULE PO SCH ×2 (09:01→12:12)
[2017-06-05] MEDS: METOLAZONE 2.5 MG TABLET PO SCH (09:01)
[2017-06-05] MEDS: VIT B CMPLX 3/FA/VIT C/BIOTIN 1 TAB TABLET PO SCH (09:01)
[2017-06-05] MEDS: FUROSEMIDE 80 MG TABLET PO SCH (09:02)
[2017-06-05] MEDS: FERROUS SULFATE (325 MG) 325 MG/TAB TABLET PO SCH (09:02)
[2017-06-05] MEDS: AMLODIPINE BESYLATE 10 MG TABLET PO SCH (09:02)
[2017-06-05] MEDS: OSELTAMIVIR PHOSPHATE 75 MG CAPSULE PO SCH (09:02)
[2017-06-05] MEDS: LISINOPRIL (20MG) 20 MG TABLET PO SCH (09:02)
[2017-06-05 09:03] VITALS: BP 159/76
[2017-06-05] MEDS: LACTOBACILLUS RHAMNOSUS GG 1 EACH CAP.SPRINK PO SCH (09:03)
[2017-06-05] MEDS: LABETALOL HCL (100MG) 100 MG TABLET PO SCH (09:03)
[2017-06-05] MEDS: DULOXETINE HCL 30 MG CAPSULE.DR PO SCH (09:03)
[2017-06-05] MEDS: POLYETHYLENE GLYCOL 3350 17 GM POWD.PACK PO SCH (09:05)
[2017-06-05] MEDS: INSULIN REGULAR, HUMAN 100 UNIT/ML 3 ML VIAL SQ PRN (12:15)
[2017-06-05 13:32] LABS: BASOPHILS % (AUTO) 0.7 % (0.0-2.0); EOSINOPHILS # (AUTO) 0.5 /CMM (0.0-0.7); EOSINOPHILS % (AUTO) 9.4 % (0.0-6.0); HEMATOCRIT 28 % (39-51); HEMOGLOBIN 9.4 g/dL (13.5-17.5); LYMPHOCYTES % (AUTO) 17.4 % (20.0-44.0); MEAN CORPUSCULAR HEMOGLOBIN 32 PG (26.0-33.0); MEAN CORPUSCULAR HGB CONC 34 g/dl (31.0-36.0); MEAN CORPUSCULAR VOLUME 95 fL (80-96); MONOCYTES # (AUTO) 0.5 /CMM (0.1-1.30); MONOCYTES % (AUTO) 8.7 % (2.0-12.0); NEUTROPHILS # (AUTO) 3.6 /CMM (1.8-8.9); NEUTROPHILS % (AUTO) 63.8 % (43.0-81.0); PLATELET COUNT (AUTO) 227 /CMM (150-450); RDW COEFFICIENT OF VARIATION 14.6 (11.5-15.0); WHITE BLOOD COUNT (AUTO) 5.6 K/uL (4.3-11.0)
--- NOTE | 2017-06-05 14:30 | NUR ---
RN NOTES PT WAS DISCHARGED TO HOME BY [employer] IN STABLE CONDITION. ALL BELONGINGS WERE RETURNED TO PT, DISCHARGE PAPERS SIGNED. IV AND ID BAND WERE REMOVED. PAPER WAS GIVEN DISCHARGE INSTRUCTIONS TO FOLLOW UP WITH PCP AND THE CLINIC, PT VERBALIZED UNDERSTANDING. NEW PRESCRIPTION WAS GIVEN TO PATIENT.
== END 2017-06-05 16:00 | disposition home or self-care (01) | DRG 193 ==
LOC: ER 07:06 → TELE 10:05 → MED 06-01 10:38
PROVIDERS: ADMIT Internal Medicine Nephrology; ATTEND Internal Medicine Nephrology
PROC: 5A1D70Z Performance of Urinary Filtration, Intermittent, Less than 6 Hours Per Day (ICD-10-PCS; 2017-06-02)
PROC: 0DB78ZX Excision of Stomach, Pylorus, Via Natural or Artificial Opening Endoscopic, Diagnostic (ICD-10-PCS; principal; 2017-06-04 10:30)
DX: J10.1 Influenza due to other identified influenza virus with other respiratory manifestations (principal); N18.6 End stage renal disease; G93.40 Encephalopathy, unspecified; I12.0 Hypertensive chronic kidney disease with stage 5 chronic kidney disease or end stage renal disease; E11.22 Type 2 diabetes mellitus with diabetic chronic kidney disease; D64.9 Anemia, unspecified; K20.9 Esophagitis, unspecified; Z99.2 Dependence on renal dialysis; Z79.84 Long term (current) use of oral hypoglycemic drugs; K29.70 Gastritis, unspecified, without bleeding; K80.20 Calculus of gallbladder without cholecystitis without obstruction; K31.84 Gastroparesis; E11.43 Type 2 diabetes mellitus with diabetic autonomic (poly)neuropathy
CPT/HCPCS: 36415; 70450-TC; 71010-TC; 76705-TC; 80048-TC; 80076-TC; 80202-TC; 82962-TC; 83605-TC; 83735-TC; 84100-TC; 84484-TC; 85025-TC; 85730-TC; 87040-TC; 87070-TC; 87081-TC; 87086-TC; 87400; 88305-TC; 88313-TC; 88342; 90935-TC; 97110-TC; 97116-TC; 97530-TC; A4216; A4606; J0696; J1644; J1815; J2185; J2704; J3370; J7050; J7060; Z7610

== ENCOUNTER 2017-06-07 14:05 | Outpatient (CLI) | payer MEDICARE, OTHER ==
[~2017-06-07] VITALS: Ht 165.1 cm; Wt 70.3 kg
[2017-06-07 14:05] VITALS: BP 105/52
[~2017-06-07 14:05] MED LIST changes: +AMLO10TA2 PO; +CYAN10006 IM; +DULO30CA2 PO; +ESOM40CA PO; +FERR-58 PO; -FLUO20CA36 PO; +FOLI0.8T23 PO; -FOLI1TAB16 PO; +FURO80TA85 PO; +GABA-534 PO; -GLIP5TAB13 PO; +LABE100T PO; +LISI40TA4 PO; +METO2.5T2 PO; -METO25TA6 PO; -MIRT30TA8 PO; +POLY17PO4 PO; +POTA20TA83 PO; +PREG50CA PO; -SEVE800T PO; +SEVE800T8 PO; +TRAM50TA2 PO
[2017-06-07] MEDS ORDERED: PANT40TA4 PO (15:45)
[2017-06-07] MEDS ORDERED: ALLO100T PO (15:45)
[2017-06-07] MEDS ORDERED: CYCL30DR EACHEYE (15:45)
== END 2017-06-07 23:59 | disposition home or self-care (01) ==
LOC: MSC 14:05
PROVIDERS: ATTEND Internal Medicine
DX: G93.40 Encephalopathy, unspecified (principal); I10 Essential (primary) hypertension; I12.0 Hypertensive chronic kidney disease with stage 5 chronic kidney disease or end stage renal disease; D63.1 Anemia in chronic kidney disease; N18.6 End stage renal disease

== ENCOUNTER 2017-06-07 15:22 | Inpatient (IN) | payer MEDICARE, OTHER ==
[~2017-06-07] VITALS: Ht 162.6 cm; Wt 71.7 kg
--- NOTE | 2017-06-07 15:30 | NUR ---
PRESENTS TO ER FROM CLINIC SENT BY DR ERIC FOR WEAKNESS AFTER MISSING HD TODAY. PATIENT A/OX 2. BREATHING EVEN AND UNLABORED. NO SOB. VITALS STABLE. SAFETY AND COMFORT MEASURES IN PLACE. AWAITING MD ORDERS.
--- NOTE | 2017-06-07 15:40 | NUR ---
NEW IV STARTED ON RIGHT UPPER ARM, 20G. BLOOD DRAWN AND SENT TO LAB.
[2017-06-07] MEDS ORDERED: ALLO100T PO (15:45)
[2017-06-07] MEDS ORDERED: PANT40TA4 PO (15:45)
[2017-06-07] MEDS ORDERED: CYCL30DR EACHEYE (15:45)
--- NOTE | 2017-06-07 15:48 | NUR ---
PATIENT TAKEN TO CT VIA STRETCHER.
[2017-06-07 15:51] LABS: BASOPHILS % (AUTO) 0.5 % (0.0-2.0); EOSINOPHILS # (AUTO) 0.3 /CMM (0.0-0.7); EOSINOPHILS % (AUTO) 5.3 % (0.0-6.0); HEMATOCRIT 25 % (39-51); HEMOGLOBIN 8.6 g/dL (13.5-17.5); LYMPHOCYTES # (AUTO) 1.1 /CMM (0.8-4.8); LYMPHOCYTES % (AUTO) 23.8 % (20.0-44.0); MEAN CORPUSCULAR HEMOGLOBIN 31 PG (26.0-33.0); MEAN CORPUSCULAR HGB CONC 34 g/dl (31.0-36.0); MEAN CORPUSCULAR VOLUME 92 fL (80-96); MONOCYTES # (AUTO) 0.5 /CMM (0.1-1.30); NEUTROPHILS # (AUTO) 2.9 /CMM (1.8-8.9); NEUTROPHILS % (AUTO) 59.4 % (43.0-81.0); PLATELET COUNT (AUTO) 275 /CMM (150-450); RDW COEFFICIENT OF VARIATION 14.5 (11.5-15.0); RED BLOOD CELL COUNT(AUTO) 2.75 MIL/uL (4.5-6.0); WHITE BLOOD COUNT (AUTO) 4.8 K/uL (4.3-11.0)
[2017-06-07 16:03] LABS: INR 0.89 (0.87-1.13); PROTHROMBIN TIME 9.3 SECS (9.5-12.7)
--- NOTE | 2017-06-07 16:03 | NUR ---
PATIENT RETURNED FROM CT IN STABLE CONDITION.
[2017-06-07 16:06] LABS: ALBUMIN 3.5 g/dL (3.4-5.0); BILIRUBIN,DIRECT 0.1 mg/dL (0.0-0.2); BILIRUBIN,TOTAL 0.5 mg/dL (0.2-1.0); CALCIUM, SERUM 8.1 mg/dL (8.5-10.1); TOTAL PROTEIN, SERUM 7.3 g/dL (6.4-8.2)
[2017-06-07 16:26] LABS: CREATININE 14.3 mg/dL (0.6-1.3); POTASSIUM 6.2 mmol/L (3.5-5.1)
--- NOTE | 2017-06-07 16:43 | NUR ---
Dr. Jordan zaldivar.
[2017-06-07] MEDS ORDERED: SODIUM POLYSTYRENE SULFONATE 15 G/60 ML BOTTLE PO ONE (17:00)
[2017-06-07] MEDS ORDERED: SODIUM POLYSTYRENE SULFONATE 15 G/60 ML BOTTLE ONE (17:04)
--- NOTE | 2017-06-07 17:21 | NUR ---
REPORT GIVEN TO MO MORRIS FOR LAURO UPON ADMISSION.
--- NOTE | 2017-06-07 17:54 | NUR ---
PATIENT TRANSPORTED TO [facility] VIA ACLS PROTOCOL FOR ADMISSION. RN, MO TO PROVIDE LAURO.
[2017-06-07 18:00] VITALS: BP 125/54
--- NOTE | 2017-06-07 18:00 | NUR ---
SHIRRER NOTES RECEIVED PT FROM E.R. STAFF VIA [facility], PT IS AWAKE, ALERT, PT ASSISTED TO BED, ABLE TO WALK WITH ASSISTANCE, ASSISTED TO BED, MADE COMFORTABLE, DENIES PAIN, NOT IN DISTRESS, O2 SAT AT 98% ON ROOM AIR, NO COMPLAINT OF SOB, SAMRA SET UP ORIENTATION PROVIDED, VERBALIZED UNDERSTANDING, LIMITED SKIN ASSESSMENT WAS DONE BECAUSE PT REFUSED TO REMOVE PANTS AT THIS TIME, NO BLEEDING NOTED AT AV SHUNT AT LEFT UPPER ARM, PLAN OF CARE DISCUSSED WITH PT, VERBALIZED UNDERSTANDING, RECEIVED ADMITTING ORDERS FROM DR. ROJAS, NOTED, FAXED HOME MED LIST TO PHARMACY.
[2017-06-07] MEDS ORDERED: INSULIN REGULAR, HUMAN 100 UNIT/ML 3 ML VIAL SQ PRN (18:30)
[2017-06-07] MEDS ORDERED: ACETAMINOPHEN 325 MG TABLET PO PRN (18:30)
[2017-06-07] MEDS ORDERED: DEXTROSE 50%-WATER 50 ML DISP.SYRIN IV PRN (18:30)
[2017-06-07] MEDS ORDERED: TRAMADOL HCL 50 MG TABLET PO PRN (19:00)
[2017-06-07] MEDS ORDERED: RESTASIS XX SCH (19:00)
[2017-06-07] MEDS ORDERED: HOME MED MISCELLANEOUS XX SCH (19:00)
--- NOTE | 2017-06-07 19:00 | NUR ---
PAINT TESTER NOTES PT IN BED, RESTING, NOT IN PAIN OR DISTRESS, ASSISTED WITH DINNER, SINUS RHYTHM ON THE TELE MONITOR, REPORT GIVEN TO BOOK PUBLISHER NURSE, ALL NEEDS ATTENDED.
[2017-06-07] MEDS ORDERED: ONDANSETRON HCL/PF 4 MG/2 ML VIAL IV PRN (19:30)
--- NOTE | 2017-06-07 19:30 | NUR ---
RN NOTES RECEIVED PATIENT IN BED AWAKE, AO X 3, ABLE TO MAKE NEEDS KNOWN. NO ACUTE DISTRESS NOTED. DENIES ANY PAIN AT THIS TIME. IV SITE PATENT, INTACT; FLUSHED. SHELBY AV SHUNT INTACT; POSITIVE BRUIT/THRILL. SAFETY REMINDERS GIVEN. ON LOW BED WITH BILATERAL UPPER SIDE RAILS UP. CALL LIGHT BUTTON WITHIN EASY REACH. WILL CONTINUE TO MONITOR.
[2017-06-07 20:00] VITALS: BP 131/69
[2017-06-07] MEDS: SEVELAMER CARBONATE 800 MG TABLET PO SCH (20:11)
[2017-06-07] MEDS: PREGABALIN 25 MG CAPSULE PO SCH (20:12)
[2017-06-07] MEDS: LABETALOL HCL (100MG) 100 MG TABLET PO SCH (20:12)
[2017-06-07] MEDS: BLOOD SUGAR DIAGNOSTIC 1 EACH STRIP IN SCH (21:13)
[2017-06-07] MEDS: GABAPENTIN 300 MG CAPSULE PO SCH (21:15)
[2017-06-08] VITALS: BP 130/55
[2017-06-08 04:00] VITALS: BP 130/58
--- NOTE | 2017-06-08 06:15 | NUR ---
RN NOTES PATIENT ASLEEP, EASILY AROUSABLE. RESPIRATIONS EVEN. NO SIGNS OF PAIN NOTED. NO SYMPTOMS OF HYPER/HYPOGLYCEMIA. DUE MEDS GIVEN WITH NO ASE NOTED. NEEDS ATTENDED. SAFETY PRECAUTIONS AND COMFORT MEASURES IN PLACE. WILL GIVE REPORT TO DAY SHIFT FOR CONTINUITY OF CARE.
[2017-06-08 06:31] LABS: BASOPHILS % (AUTO) 0.5 % (0.0-2.0); EOSINOPHILS # (AUTO) 0.3 /CMM (0.0-0.7); EOSINOPHILS % (AUTO) 6.1 % (0.0-6.0); HEMATOCRIT 24 % (39-51); LYMPHOCYTES # (AUTO) 1.4 /CMM (0.8-4.8); LYMPHOCYTES % (AUTO) 28.6 % (20.0-44.0); MEAN CORPUSCULAR HEMOGLOBIN 32 PG (26.0-33.0); MEAN CORPUSCULAR HGB CONC 34 g/dl (31.0-36.0); MEAN CORPUSCULAR VOLUME 93 fL (80-96); MONOCYTES # (AUTO) 0.5 /CMM (0.1-1.30); MONOCYTES % (AUTO) 10.4 % (2.0-12.0); NEUTROPHILS # (AUTO) 2.7 /CMM (1.8-8.9); NEUTROPHILS % (AUTO) 54.4 % (43.0-81.0); PLATELET COUNT (AUTO) 268 /CMM (150-450); RDW COEFFICIENT OF VARIATION 15.1 (11.5-15.0); RED BLOOD CELL COUNT(AUTO) 2.52 MIL/uL (4.5-6.0); WHITE BLOOD COUNT (AUTO) 4.9 K/uL (4.3-11.0)
[2017-06-08] MEDS: BLOOD SUGAR DIAGNOSTIC 1 EACH STRIP IN SCH ×4 (06:46→22:16)
[2017-06-08 06:56] LABS: CALCIUM, SERUM 7.5 mg/dL (8.5-10.1); PHOSPHORUS 6.9 mg/dL (2.5-4.9); POTASSIUM 5.3 mmol/L (3.5-5.1)
[2017-06-08 07:00] VITALS: BP 130/55
[2017-06-08 07:53] LABS: CREATININE 15.7 mg/dL (0.6-1.3)
--- NOTE | 2017-06-08 08:30 | NUR ---
MS RN RECEIVED ON BED, AWAKE,ALERT,ORIENTED X2-3,NOT IN ANY FORM OF DISTRESS RESPIRATIONS EVEN AND UNLABORED,NO SOB NOTED, DIALYSIS PATIENT ,NEEDS HD TODAY, FACE IS SWOLLEN AT THIS TIME, DENIES PAIN.
[2017-06-08] MEDS: POTASSIUM CHLORIDE 20 MEQ TAB.PRT.SR PO SCH (08:55)
[2017-06-08] MEDS: LABETALOL HCL (100MG) 100 MG TABLET PO SCH ×2 (09:00→17:19)
[2017-06-08] MEDS ORDERED: LISINOPRIL (20MG) 20 MG TABLET PO SCH (09:00)
--- NOTE | 2017-06-08 09:20 | NUR ---
MS RN BREAKFAST SERVED,DUE MEDS GIVEN,TOLERATED WELL. WANTS TO GO HOME BUT ADVISED TO WAIT FOR MD.
[2017-06-08] MEDS: SEVELAMER CARBONATE 800 MG TABLET PO SCH ×3 (09:53→17:18)
[2017-06-08] MEDS: FUROSEMIDE 80 MG TABLET PO SCH ×2 (09:53→17:19)
[2017-06-08] MEDS: FERROUS SULFATE (325 MG) 325 MG/TAB TABLET PO SCH (09:54)
[2017-06-08] MEDS: METOLAZONE 2.5 MG TABLET PO SCH (09:54)
[2017-06-08] MEDS: PYRIDOXINE HCL 50 MG TABLET PO SCH (09:54)
[2017-06-08] MEDS: VIT B CMPLX 3/FA/VIT C/BIOTIN 1 TAB TABLET PO SCH (09:54)
[2017-06-08] MEDS: ALLOPURINOL 100 MG TABLET PO SCH (09:55)
[2017-06-08] MEDS: POLYETHYLENE GLYCOL 3350 17 GM POWD.PACK PO SCH (09:55)
[2017-06-08] MEDS: PREGABALIN 25 MG CAPSULE PO SCH ×3 (09:55→17:19)
[2017-06-08] MEDS: PANTOPRAZOLE 40 MG TABLET.DR PO SCH (09:55)
[2017-06-08] MEDS: DULOXETINE HCL 30 MG CAPSULE.DR PO SCH (09:56)
--- NOTE | 2017-06-08 10:00 | NUR ---
MS RN CHANGED IV SITE TO RIGHT HAND DUE TO HURTING G 22.
[2017-06-08] MEDS ORDERED: EPOETIN ALFA (10,000 UNIT) 10,000 UNIT/ML VIAL IV ONE (12:00)
--- NOTE | 2017-06-08 12:00 | NUR ---
MS MORRIS BS - 143 - REFUSED COVERAGE AT THIS TIME.,
--- NOTE | 2017-06-08 12:20 | NUR ---
MS RN WAS SEEN BY DR. SY W/ TIARA TO BE DIALYZED TODAY.
[2017-06-08 16:00] VITALS: BP 140/71
--- NOTE | 2017-06-08 16:00 | NUR ---
MS MORRIS HD DONE,TOLERATED WELL W/ 2000ML OUTPUT.
[2017-06-08] MEDS: AMLODIPINE BESYLATE 10 MG TABLET PO SCH (17:19)
--- NOTE | 2017-06-08 17:30 | NUR ---
MS MORRIS BS -119 - NO COVERAGE GIVEN.
--- NOTE | 2017-06-08 19:30 | NUR ---
MS RN OPENING NOTES: PATIENT NI BED, AOX4, ON ROOM AIR, BREATHING EVEN AND UNLABORED. APPEARS CALM AND IN NO DISTRESS, DENIES PAIN AT THIS TIME. SHELBY AV SHUNT WITH PALPABLE THRILLS PRESENT, WITH CLEAN AND INTACT DRESSING IN PLACE. PIV OVER R HAND G 22 INTACT AND PATENT TO FLUSH. PROVIDED FOR COMFORT AND SAFETY. BED IN LOWEST AND LOCKED POSITION, SIDERAILS UP X2. WILL CONT TO MONITOR.
--- NOTE | 2017-06-08 19:55 | NUR ---
Patient lives at home with sister/family. He is ambulatory and independent with adl's. He gets HD 3X/week q [facility] at [facility] [phone]. Has no DME or homehealth reported. Has good family support. Plan to dc back home upon discharge. Addendum: 06/08/17 at 5 by ANTHONY JOHNSON RN Amended: Links added.
[2017-06-08 20:00] VITALS: BP 139/74
--- NOTE | 2017-06-08 20:00 | NUR ---
RN NOTES: PATIENT TRANSFERRED TO [facility] VIA WHEELCHAIR, IN STABLE CONDITIONS, WITH ALL BELONGINGS.
--- NOTE | 2017-06-08 22:16 | NUR ---
RN NOTES: PATIENT'S BLOOD SUGAR CHECKED AT 136 MG/DL, REFUSED INSULIN COVERAGE AT THIS TIME. RISKS AND BENEFITS EXPLAINED, PATIENT STILL REFUSED.
[2017-06-08] MEDS: GABAPENTIN 300 MG CAPSULE PO SCH (22:17)
[2017-06-09 06:00] VITALS: BP 152/70
[2017-06-09 06:29] LABS: BASOPHILS % (AUTO) 0.7 % (0.0-2.0); EOSINOPHILS # (AUTO) 0.2 /CMM (0.0-0.7); EOSINOPHILS % (AUTO) 4.8 % (0.0-6.0); HEMATOCRIT 25 % (39-51); HEMOGLOBIN 8.7 g/dL (13.5-17.5); LYMPHOCYTES % (AUTO) 21.6 % (20.0-44.0); MEAN CORPUSCULAR HEMOGLOBIN 32 PG (26.0-33.0); MEAN CORPUSCULAR HGB CONC 35 g/dl (31.0-36.0); MEAN CORPUSCULAR VOLUME 93 fL (80-96); MONOCYTES # (AUTO) 0.6 /CMM (0.1-1.30); MONOCYTES % (AUTO) 11.8 % (2.0-12.0); NEUTROPHILS # (AUTO) 2.9 /CMM (1.8-8.9); NEUTROPHILS % (AUTO) 61.1 % (43.0-81.0); PLATELET COUNT (AUTO) 295 /CMM (150-450); RDW COEFFICIENT OF VARIATION 14.6 (11.5-15.0); RED BLOOD CELL COUNT(AUTO) 2.72 MIL/uL (4.5-6.0); WHITE BLOOD COUNT (AUTO) 4.7 K/uL (4.3-11.0)
--- NOTE | 2017-06-09 06:31 | NUR ---
MS RN CLOSING NOTES: PATIENT IN BED, AOX4, ON ROOM AIR, BREATHING EVEN AND UNLABORED. APPEARS CALM AND IN NO DISTRESS. DENIES PAIN. BLOOD SUGAR CHECKED AT 125 MG/DL. PIV OVER R HAND G 22 INTACT AND PATENT TO FLUSH. DUE MEDS GIVEN. PROVIDED FOR COMFORT AND SAFETY. BED IN LOWEST AND LOCKED POSITION, SIDERAILS UP X3. NO ACUTE CHANGE IN CONDITION NOTED THROUGH SHIFT. WILL ENDORSE TO AM RN FOR LAURO.
[2017-06-09] MEDS: BLOOD SUGAR DIAGNOSTIC 1 EACH STRIP IN SCH (06:38)
[2017-06-09] MEDS: PANTOPRAZOLE 40 MG TABLET.DR PO SCH (06:38)
[2017-06-09 06:50] LABS: CALCIUM, SERUM 9.2 mg/dL (8.5-10.1); MAGNESIUM 2.6 mg/dL (1.8-2.4); PHOSPHORUS 5.9 mg/dL (2.5-4.9); POTASSIUM 4.8 mmol/L (3.5-5.1)
[2017-06-09 06:54] LABS: CREATININE 11.4 mg/dL (0.6-1.3)
--- NOTE | 2017-06-09 07:14 | NUR ---
MS/RN Patient received Patient received from rn night. No needs at this time, denies pain. Call light within reach, bed in low setting, brakes locked and side rails X3 in upright position. Will continue to monitor and ensure safety.
[2017-06-09 08:00] VITALS: BP 143/74
[2017-06-09 08:11] VITALS: BP 143/74
[2017-06-09] MEDS: FUROSEMIDE 80 MG TABLET PO SCH (08:32)
[2017-06-09] MEDS: DULOXETINE HCL 30 MG CAPSULE.DR PO SCH (08:32)
[2017-06-09] MEDS: METOLAZONE 2.5 MG TABLET PO SCH (08:32)
[2017-06-09] MEDS: ALLOPURINOL 100 MG TABLET PO SCH (08:32)
[2017-06-09] MEDS: VIT B CMPLX 3/FA/VIT C/BIOTIN 1 TAB TABLET PO SCH (08:32)
[2017-06-09] MEDS: AMLODIPINE BESYLATE 10 MG TABLET PO SCH (08:32)
[2017-06-09] MEDS: PREGABALIN 25 MG CAPSULE PO SCH (08:32)
[2017-06-09] MEDS: FERROUS SULFATE (325 MG) 325 MG/TAB TABLET PO SCH (08:32)
[2017-06-09] MEDS: POTASSIUM CHLORIDE 20 MEQ TAB.PRT.SR PO SCH (08:32)
[2017-06-09] MEDS: SEVELAMER CARBONATE 800 MG TABLET PO SCH (08:32)
[2017-06-09 08:33] VITALS: BP 143/74
[2017-06-09] MEDS: POLYETHYLENE GLYCOL 3350 17 GM POWD.PACK PO SCH (08:33)
[2017-06-09] MEDS: PYRIDOXINE HCL 50 MG TABLET PO SCH (08:33)
[2017-06-09] MEDS: LABETALOL HCL (100MG) 100 MG TABLET PO SCH (08:33)
[2017-06-09] MEDS ORDERED: LISINOPRIL (20MG) 20 MG TABLET PO SCH (09:00)
--- NOTE | 2017-06-09 09:00 | NUR ---
MS/RN Medications Morning medications administered as ordered.
--- NOTE | 2017-06-09 10:30 | NUR ---
MS/RN S/B Dr Chen Seen by Dr Chen - patient to be discharged to home today, order given for potassium to be discontinued until follow up appointment with primary care doctor.
--- NOTE | 2017-06-09 10:57 | NUR ---
MS/meal temperer Patient discharged to home in stable condition. Education provided to patient about the importance of attending dialysis on scheduled days and to not skip days. Patient stated understanding. Next scheduled dialysis is Sunday. Medications explained to patient including any possible side effects. Instructed not to take any further potassium pills until follow up with primary care doctor, again stated understanding. All education provided to patient via Gemini Elizondo CNA as spanish medical interpreter. Exit care completed and signed by patient along with belongings list. Heplock and name bands removed. Escorted to main lobby by ANDREW.
[2017-07-07] MEDS ORDERED: CYANOCOBALAMIN 1,000 MCG/ML VIAL IM SCH (09:00)
== END 2017-06-09 11:00 | disposition home or self-care (01) | DRG 682 ==
LOC: ER 15:30 → TELE 17:28 → MED 06-08 08:05 → MEDSG2 06-08 20:46
PROVIDERS: ADMIT Internal Medicine Nephrology; ATTEND Internal Medicine Nephrology
PROC: 5A1D70Z Performance of Urinary Filtration, Intermittent, Less than 6 Hours Per Day (ICD-10-PCS; principal; 2017-06-08)
DX: I12.0 Hypertensive chronic kidney disease with stage 5 chronic kidney disease or end stage renal disease (principal); N18.6 End stage renal disease; E11.22 Type 2 diabetes mellitus with diabetic chronic kidney disease; E11.40 Type 2 diabetes mellitus with diabetic neuropathy, unspecified; K29.70 Gastritis, unspecified, without bleeding; E87.5 Hyperkalemia; Z99.2 Dependence on renal dialysis; Z79.899 Other long term (current) drug therapy; H54.7 Unspecified visual loss; D64.9 Anemia, unspecified; Z79.84 Long term (current) use of oral hypoglycemic drugs; I67.2 Cerebral atherosclerosis
CPT/HCPCS: 36415; 70450-TC; 71010-TC; 80048-TC; 80076-TC; 82962-TC; 83735-TC; 83880; 84100-TC; 85025-TC; 85730-TC; 87040-TC; 87081-TC; A4606; J0885; J1815; Z7610

== ENCOUNTER 2017-06-12 10:22 | Inpatient (IN) | payer MEDICARE, OTHER ==
[~2017-06-12] VITALS: Ht 160 cm; Wt 68.9 kg
[~2017-06-12 10:22] MED LIST changes: +ALLO100T PO; +CYCL30DR EACHEYE; +PANT40TA4 PO
[2017-06-12] MEDS ORDERED: IV NS 0.9% 500 ML BAG IV ONE (11:00)
[2017-06-12 11:13] LABS: BASOPHILS # (AUTO) 0.1 /CMM (0.0-0.2); BASOPHILS % (AUTO) 1.6 % (0.0-2.0); EOSINOPHILS # (AUTO) 0.1 /CMM (0.0-0.7); EOSINOPHILS % (AUTO) 0.9 % (0.0-6.0); HEMATOCRIT 27 % (39-51); HEMOGLOBIN 8.9 g/dL (13.5-17.5); LYMPHOCYTES # (AUTO) 0.7 /CMM (0.8-4.8); LYMPHOCYTES % (AUTO) 7.3 % (20.0-44.0); MEAN CORPUSCULAR HEMOGLOBIN 31 PG (26.0-33.0); MEAN CORPUSCULAR HGB CONC 34 g/dl (31.0-36.0); MEAN CORPUSCULAR VOLUME 93 fL (80-96); MONOCYTES # (AUTO) 0.6 /CMM (0.1-1.30); MONOCYTES % (AUTO) 6.4 % (2.0-12.0); NEUTROPHILS # (AUTO) 7.7 /CMM (1.8-8.9); NEUTROPHILS % (AUTO) 83.8 % (43.0-81.0); PLATELET COUNT (AUTO) 435 /CMM (150-450); RDW COEFFICIENT OF VARIATION 14.4 (11.5-15.0); RED BLOOD CELL COUNT(AUTO) 2.84 MIL/uL (4.5-6.0); WHITE BLOOD COUNT (AUTO) 9.2 K/uL (4.3-11.0)
[2017-06-12 11:23] LABS: CALCIUM, SERUM 8.4 mg/dL (8.5-10.1); CARBON DIOXIDE 32 mmol/L (21-32); CHLORIDE 96 mmol/L (98-107); GLUCOSE 142 mg/dL (74-106); POTASSIUM 4.1 mmol/L (3.5-5.1); SODIUM SERUM 136 mmol/L (136-145); UREA NITROGEN, BLOOD 38 mg/dL (7-18)
[2017-06-12 11:27] LABS: INR 0.96 (0.87-1.13)
[2017-06-12 11:29] LABS: ALANINE AMINOTRANSFERASE 27 U/L (12-78); ALBUMIN 3.9 g/dL (3.4-5.0); ALKALINE PHOSPHATASE 86 U/L (46-116); ASPARTATE AMINOTRANSFERASE 24 U/L (15-37); BILIRUBIN,DIRECT 0.1 mg/dL (0.0-0.2); BILIRUBIN,TOTAL 0.5 mg/dL (0.2-1.0); TOTAL PROTEIN, SERUM 7.8 g/dL (6.4-8.2)
[2017-06-12 11:32] LABS: TROPONIN I < 0.017 ng/mL (0.00-0.056)
[2017-06-12 13:23] LABS: APPEARANCE,URINE Clear (CLEAR); BILIRUBIN,URINE Negative (NEGATIVE); BLOOD, URINE Small Ery/uL (NEGATIVE); COLOR,URINE Yellow (YELLOW); KETONES,URINE Negative (NEGATIVE); LEUKOCYTE ESTERASE ,URINE Negative (NEGATIVE); NITRITE, URINE Negative (NEGATIVE); PROTEIN,URINE >=300 mg/dl (NEGATIVE); UGLUCOSE Negative (NEGATIVE); UROBILINOGEN,URINE 0.2 EU/dL (0.2)
[2017-06-12 13:32] LABS: BACTERIA,URINE Rare /HPF (None Seen); SQUAMOUS EPITHELIAL CELL,UR Rare /HPF (None Seen); WBC,URINE 0-2 /HPF (0-3)
[2017-06-12] MEDS ORDERED: IV NS 0.9% 1,000 ML IV PRN (14:40)
[2017-06-12] MEDS ORDERED: ACETAMINOPHEN 325 MG TABLET PO PRN (15:00)
[2017-06-12] MEDS ORDERED: MAGNESIUM HYDROXIDE 30 ML UDC PO PRN (15:00)
[2017-06-12] MEDS ORDERED: TRAMADOL HCL 50 MG TABLET PO PRN (15:00)
[2017-06-12] MEDS ORDERED: HYDROCODONE/APAP 5/325MG 1 EACH TABLET PO PRN (15:00)
[2017-06-12] MEDS ORDERED: ONDANSETRON HCL/PF 4 MG/2 ML VIAL IVP PRN (15:00)
[2017-06-12] MEDS ORDERED: Z GUARD REMEDY 2 OZ OINT TP PRN (15:00)
[2017-06-12] MEDS ORDERED: MAG HYDROX/AL HYDROX/SIMETH 30 ML UDC PO PRN (15:00)
[2017-06-12] MEDS ORDERED: ZOLPIDEM TARTRATE 5 MG TABLET PO PRN (15:00)
[2017-06-12] MEDS ORDERED: MORPHINE SULFATE INJ 2 MG/ML DISP.SYRIN IV PRN (15:00)
[2017-06-12] MEDS ORDERED: FENTANYL PF 100MCG/2ML AMPUL IV PRN (15:30)
[2017-06-12] MEDS ORDERED: ENOXAPARIN SODIUM 40 MG/0.4 ML DISP.SYRIN SQ SCH (17:00)
[2017-06-12] MEDS: SEVELAMER CARBONATE 800 MG TABLET PO SCH (18:07)
[2017-06-12] MEDS: DOCUSATE SODIUM 100 MG CAPSULE PO SCH (18:07)
[2017-06-12] MEDS: LABETALOL HCL (100MG) 100 MG TABLET PO SCH (18:08)
[2017-06-12 20:00] VITALS: BP_SYST 148; BP_DIAS 72; BP_DIAS 74
[2017-06-13] VITALS: BP 133/65
[2017-06-13 04:00] VITALS: BP 119/47
[2017-06-13] MEDS ORDERED: PANTOPRAZOLE 40 MG TABLET.DR PO SCH (07:30)
[2017-06-13] MEDS: SEVELAMER CARBONATE 800 MG TABLET PO SCH (08:45)
[2017-06-13] MEDS: LABETALOL HCL (100MG) 100 MG TABLET PO SCH (08:45)
[2017-06-13] MEDS: DOCUSATE SODIUM 100 MG CAPSULE PO SCH (08:45)
[2017-06-13 08:46] VITALS: BP 165/94
[2017-06-13 08:51] LABS: BASOPHILS % (AUTO) 0.6 % (0.0-2.0); EOSINOPHILS # (AUTO) 0.2 /CMM (0.0-0.7); EOSINOPHILS % (AUTO) 3.7 % (0.0-6.0); HEMATOCRIT 25 % (39-51); HEMOGLOBIN 8.3 g/dL (13.5-17.5); LYMPHOCYTES # (AUTO) 1.2 /CMM (0.8-4.8); LYMPHOCYTES % (AUTO) 23.6 % (20.0-44.0); MEAN CORPUSCULAR HEMOGLOBIN 31 PG (26.0-33.0); MEAN CORPUSCULAR HGB CONC 33 g/dl (31.0-36.0); MEAN CORPUSCULAR VOLUME 94 fL (80-96); MONOCYTES # (AUTO) 0.6 /CMM (0.1-1.30); MONOCYTES % (AUTO) 12.8 % (2.0-12.0); NEUTROPHILS # (AUTO) 2.9 /CMM (1.8-8.9); NEUTROPHILS % (AUTO) 59.3 % (43.0-81.0); PLATELET COUNT (AUTO) 398 /CMM (150-450); RDW COEFFICIENT OF VARIATION 15.7 (11.5-15.0); RED BLOOD CELL COUNT(AUTO) 2.66 MIL/uL (4.5-6.0); WHITE BLOOD COUNT (AUTO) 4.9 K/uL (4.3-11.0)
[2017-06-13] MEDS ORDERED: POLYETHYLENE GLYCOL 3350 17 GM POWD.PACK PO SCH (09:00)
[2017-06-13] MEDS ORDERED: AMLODIPINE BESYLATE 10 MG TABLET PO SCH (09:00)
[2017-06-13] MEDS ORDERED: VIT B CMPLX 3/FA/VIT C/BIOTIN 1 TAB TABLET PO SCH (09:00)
[2017-06-13] MEDS ORDERED: FERROUS SULFATE (325 MG) 325 MG/TAB TABLET PO SCH (09:00)
[2017-06-13] MEDS ORDERED: PYRIDOXINE HCL 50 MG TABLET PO SCH (09:00)
[2017-06-13] MEDS ORDERED: METOLAZONE 2.5 MG TABLET PO SCH (09:00)
[2017-06-13] MEDS ORDERED: LISINOPRIL (20MG) 20 MG TABLET PO SCH (09:00)
[2017-06-13 09:09] LABS: CREATINE KINASE MB 1.3 ng/mL (0-3.6); THYROID STIMULATING HORMONE 3.27 uIU/mL (0.358-3.74)
[2017-06-13 09:10] LABS: ALBUMIN 3.3 g/dL (3.4-5.0); BILIRUBIN,TOTAL 0.6 mg/dL (0.2-1.0); CALCIUM, SERUM 7.9 mg/dL (8.5-10.1); MAGNESIUM 2.3 mg/dL (1.8-2.4); PHOSPHORUS 4.5 mg/dL (2.5-4.9); POTASSIUM 4.4 mmol/L (3.5-5.1); TOTAL PROTEIN, SERUM 6.8 g/dL (6.4-8.2)
[2017-06-13 09:13] LABS: CREATININE 10.4 mg/dL (0.6-1.3)
[2017-06-13 09:22] LABS: INR 1.07 (0.87-1.13); PROTHROMBIN TIME 11.1 SECS (9.5-12.7)
[2017-06-13 12:39] LABS: ABG BASE EXCESS 5.2 mmol/L; ABG OXYGEN SATURATION 95.1 % (92.0-98.5); ABG PCO2 43.9 mmHg (35.0-45.0); ABG PH 7.449 (7.350-7.450); AaDO2 15.2 mmHg; COHb 0.6 % (0.5-1.5); MetHb 0.6 % (0.0-1.5); SITE, ABG Right Radial; VENT MODE, BG room air
[2017-06-19] MEDS ORDERED: CYANOCOBALAMIN 1,000 MCG/ML VIAL IM SCH (09:00)
== END 2017-06-13 12:15 | disposition home or self-care (01) | DRG 682 ==
LOC: ER 10:22 → TELE 11:53
PROVIDERS: ADMIT Internal Medicine; ATTEND Internal Medicine
DX: I12.0 Hypertensive chronic kidney disease with stage 5 chronic kidney disease or end stage renal disease (principal); N18.6 End stage renal disease; E43 Unspecified severe protein-calorie malnutrition; G93.41 Metabolic encephalopathy; E11.22 Type 2 diabetes mellitus with diabetic chronic kidney disease; D63.8 Anemia in other chronic diseases classified elsewhere; Z99.2 Dependence on renal dialysis; Z79.899 Other long term (current) drug therapy; K29.70 Gastritis, unspecified, without bleeding; H54.7 Unspecified visual loss
CPT/HCPCS: 36415; 36600; 70450-TC; 71010-TC; 80048-TC; 80053-TC; 80061-TC; 80076-TC; 81000-TC; 82150-TC; 82553-TC; 82746; 82803-TC; 83540-TC; 83605-TC; 83690-TC; 83735-TC; 84100-TC; 84443-TC; 84484-TC; 85025-TC; 85652-TC; 85730-TC; 87040-TC; 87081-TC; 87086-TC; 93307-TC; A4606; J1650; J7030; J7040; Z7610

== ENCOUNTER 2017-08-11 09:50 | Emergency (ER) | payer MEDICARE, OTHER ==
[~2017-08-11] VITALS: Ht 162.6 cm; Wt 69.4 kg
[~2017-08-11 09:50] MED LIST changes: -ALLO100T PO; -CYCL30DR EACHEYE; -DULO30CA2 PO; -FERR-58 PO; +FERR325T23 PO; -GABA-534 PO; -PANT40TA4 PO; -POTA20TA83 PO; -PREG50CA PO
[2017-08-11 10:46] LABS: CALCIUM, SERUM 8.7 mg/dL (8.5-10.1); CARBON DIOXIDE 33 mmol/L (21-32); CHLORIDE 98 mmol/L (98-107); CREATININE 6.5 mg/dL (0.6-1.3); GLUCOSE 176 mg/dL (74-106); POTASSIUM 3.9 mmol/L (3.5-5.1); SODIUM SERUM 137 mmol/L (136-145); UREA NITROGEN, BLOOD 33 mg/dL (7-18)
[2017-08-11] MEDS ORDERED: METO2.5T2 PO (10:47)
[2017-08-11 10:51] LABS: BASOPHILS % (AUTO) 0.3 % (0.0-2.0); HEMATOCRIT 26 % (39-51); HEMOGLOBIN 9.2 g/dL (13.5-17.5); LYMPHOCYTES # (AUTO) 0.4 /CMM (0.8-4.8); LYMPHOCYTES % (AUTO) 4.6 % (20.0-44.0); MEAN CORPUSCULAR HEMOGLOBIN 31 PG (26.0-33.0); MEAN CORPUSCULAR HGB CONC 35 g/dl (31.0-36.0); MEAN CORPUSCULAR VOLUME 90 fL (80-96); MONOCYTES # (AUTO) 0.6 /CMM (0.1-1.30); MONOCYTES % (AUTO) 6.7 % (2.0-12.0); NEUTROPHILS # (AUTO) 7.9 /CMM (1.8-8.9); NEUTROPHILS % (AUTO) 88.4 % (43.0-81.0); PLATELET COUNT (AUTO) 170 /CMM (150-450); RDW COEFFICIENT OF VARIATION 14.4 (11.5-15.0); RED BLOOD CELL COUNT(AUTO) 2.93 MIL/uL (4.5-6.0); WHITE BLOOD COUNT (AUTO) 8.9 K/uL (4.3-11.0)
[2017-08-11 10:52] LABS: ALANINE AMINOTRANSFERASE 17 U/L (12-78); ALBUMIN 3.9 g/dL (3.4-5.0); ALKALINE PHOSPHATASE 84 U/L (46-116); ASPARTATE AMINOTRANSFERASE 25 U/L (15-37); BILIRUBIN,DIRECT 0.2 mg/dL (0.0-0.2); BILIRUBIN,TOTAL 0.6 mg/dL (0.2-1.0); LIPASE 121 U/L (73-393); TOTAL PROTEIN, SERUM 8.1 g/dL (6.4-8.2)
[2017-08-11] MEDS ORDERED: POTA10TA15 PO (10:52)
[2017-08-11] MEDS ORDERED: LINA145C PO (10:52)
[2017-08-11] MEDS ORDERED: DULO60CA45 PO (10:52)
[2017-08-11 10:54] LABS: TROPONIN I < 0.017 ng/mL (0.00-0.056)
[2017-08-11 10:55] LABS: INR 0.96 (0.85-1.15)
[2017-08-11] MEDS ORDERED: ONDANSETRON HCL/PF 4 MG/2 ML VIAL IVP ONE (11:00)
[2017-08-11] MEDS ORDERED: IV NS 0.9% 500 ML BAG IV ONE (11:00)
[2017-08-11] MEDS ORDERED: IV NS 0.9% 1,000 ML BAG IV ONE (11:00)
[2017-08-11] MEDS ORDERED: ONDANSETRON HCL/PF 4 MG/2 ML VIAL ONE (11:04)
--- NOTE | 2017-08-11 12:40 | NUR ---
CALLED [facility], COPYHOLDER WAS PAGED.
[2017-08-11 13:30] VITALS: BP 129/89
--- NOTE | 2017-08-11 14:34 | NUR ---
PT LEAVING WITH CIVIL ENGINEER HELPER. NAD NOTED. PT AAO X4, AMB WITH STEADY GAIT. RR EVEN AND UNLABORED. NO FURTHER COMPLAINTS. DC INSTRUCTIONS GIVEN AND PT VERBALIZED UNDERSTANDING OF DISCHARGE INSTRUCTIONS
== END 2017-08-11 14:33 | disposition home or self-care (01) ==
LOC: ER 09:52
DX: R11.2 Nausea with vomiting, unspecified (principal); R50.9 Fever, unspecified; I12.0 Hypertensive chronic kidney disease with stage 5 chronic kidney disease or end stage renal disease; N18.6 End stage renal disease; Z99.2 Dependence on renal dialysis
CPT/HCPCS: 36415; 71045; 74176; 80048; 80076; 83605; 83690; 84484; 85025; 85730; 87040; 87804; 93005; 96361; 96374; 99285; A4606; J2405; J7040; 87400; Z7610

== ENCOUNTER 2018-09-01 03:24 | Inpatient (IN) | payer MEDICARE, OTHER ==
[~2018-09-01] VITALS: Ht 167.6 cm; Wt 67.6 kg
[~2018-09-01 03:24] MED LIST changes: -AMLO10TA2 PO; +AMLO10TA7 PO; +DULO60CA45 PO; -FERR325T23 PO; -LABE100T PO; +LABE100T5 PO; +LINA145C PO; +POTA10TA15 PO
--- NOTE | 2018-09-01 03:39 | NUR ---
BIBRA. C/O "FACE STARTED SWELLING UP SINCE I HAD DIALYSIS YESTERDAY" -SOB. -N/V -DIZZINESS. AOX4.
[2018-09-01] MEDS ORDERED: diphenhydrAMINE HCL 50 MG/ML VIAL ONE (03:45)
[2018-09-01] MEDS ORDERED: methylPREDNISolone SOD SUCC 125 MG/2ML VIAL ONE (03:45)
[2018-09-01] MEDS ORDERED: ALBUTEROL FS 2.5 MG/3 ML VIAL.NEB ONE (03:47)
[2018-09-01] MEDS ORDERED: IPRATROPIUM NEB FS 0.5 MG/2.5 ML AMPUL.NEB ONE (03:48)
[2018-09-01] MEDS ORDERED: diphenhydrAMINE HCL 50 MG/ML VIAL IV ONE (04:00)
[2018-09-01] MEDS ORDERED: methylPREDNISolone SOD SUCC 125 MG/2ML VIAL IV ONE (04:00)
[2018-09-01] MEDS ORDERED: IPRATROPIUM NEB FS 0.5 MG/2.5 ML AMPUL.NEB NEB ONE (04:00)
[2018-09-01] MEDS ORDERED: ALBUTEROL FS 2.5 MG/3 ML VIAL.NEB NEB ONE (04:00)
[2018-09-01 04:03] LABS: BASOPHILS % (AUTO) 0.2 % (0.0-2.0); EOSINOPHILS % (AUTO) 1.5 % (0.0-6.0); HEMATOCRIT 30 % (39-51); LYMPHOCYTES # (AUTO) 0.7 /CMM (0.8-4.8); LYMPHOCYTES % (AUTO) 9.2 % (20.0-44.0); MEAN CORPUSCULAR HGB CONC 34 g/dl (31.0-36.0); MEAN CORPUSCULAR VOLUME 92 fL (80-96); MONOCYTES # (AUTO) 0.8 /CMM (0.1-1.30); MONOCYTES % (AUTO) 9.9 % (2.0-12.0); NEUTROPHILS % (AUTO) 79.2 % (43.0-81.0); PLATELET COUNT (AUTO) 332 /CMM (150-450); WHITE BLOOD COUNT (AUTO) 7.6 K/uL (4.3-11.0)
[2018-09-01 04:12] LABS: CALCIUM, SERUM 8.5 mg/dL (8.5-10.1); CARBON DIOXIDE 35 mmol/L (21-32); CHLORIDE 99 mmol/L (98-107); CREATININE 6.6 mg/dL (0.6-1.3); GLUCOSE 125 mg/dL (74-106); POTASSIUM 4.4 mmol/L (3.5-5.1); SODIUM SERUM 144 mmol/L (136-145); UREA NITROGEN, BLOOD 26 mg/dL (7-18)
[2018-09-01 04:25] LABS: ALANINE AMINOTRANSFERASE 15 U/L (12-78); ALBUMIN 3.8 g/dL (3.4-5.0); ALKALINE PHOSPHATASE 74 U/L (46-116); ASPARTATE AMINOTRANSFERASE 24 U/L (15-37); B-TYPE NATRIURETIC PEPTIDE 27195 PG/ML (0-125); BILIRUBIN,DIRECT 0.1 mg/dL (0.0-0.2); BILIRUBIN,TOTAL 0.8 mg/dL (0.2-1.0); TOTAL PROTEIN, SERUM 7.4 g/dL (6.4-8.2)
[2018-09-01] MEDS ORDERED: HYDROCODONE/APAP 5/325MG 1 EACH TABLET PO PRN (05:30)
[2018-09-01] MEDS ORDERED: TEMAZEPAM 7.5 MG CAPSULE PO PRN (05:30)
[2018-09-01] MEDS ORDERED: diphenhydrAMINE HCL ELIX 25 MG/10 ML UDC PO PRN (05:30)
[2018-09-01] MEDS ORDERED: ALBUTEROL FS 2.5 MG/3 ML VIAL.NEB NEB PRN (05:30)
[2018-09-01] MEDS ORDERED: ACETAMINOPHEN 325 MG TABLET PO PRN (05:30)
[2018-09-01] MEDS ORDERED: ONDANSETRON HCL/PF 4 MG/2 ML VIAL IVP PRN (05:30)
[2018-09-01] MEDS ORDERED: MAG HYDROX/AL HYDROX/SIMETH 30 ML UDC PO PRN (05:30)
--- NOTE | 2018-09-01 05:37 | NUR ---
REPORT GIVEN TO LAKHWINDER MORRIS.
--- NOTE | 2018-09-01 06:15 | NUR ---
DISASSEMBLER PRODUCT NOTES RECEIVED PATIENT FROM ED VIA GURNEY WITH NO DISTRESS NOTED. PATIENT A/O X4 AND SETSWANA SPEAKING. NO C/O PAIN OR DISCOMFORT. PERIPHERAL LINE ON RAC #20 GAUGE INTACT AND PATENT. AV SHUNT ON SHELBY INTACT WITH NO SWELLING, REDNESS, OR BLEEDING NOTED AND WITH (+) BRUIT AND THRILL. ENCOURAGED USE OF CALL FOR ASSISTANCE AND VERBALIZED GOOD UNDERSTANDING. BED IN LOW LOCK SETTING. ROOM FREE OF CLUTTER AND ALL BELONGINGS KEPT NEAR BEDSIDE. WILL ENDORSE TO ONCOMING SHIFT.
--- NOTE | 2018-09-01 07:25 | NUR ---
GROUND CREWMAN [employer] SUPPORT NOTES PATIENT RECEIVED RESTING INSIDE ROOM, SLEEPING, EASILY AROUSABL THROUGH VERBAL AND TACTILE STIMULI. ALERT AND ORIENTED, VERBALLY RESPONSIVE AND RESPONDS TO VERBAL AND TACTILE STIMULI. NO ACUTE DISTRESS AT THIS TIME. ON TELEMETRY, BRANCH CREDIT COUNSELOR IN PLACE, SR Ramirez'Kathy. AWARE OF PATIENT ARRIVAL AT UNIT. WILL CONTINUE TO MONITOR. BED LOCKED AND IN LOW POSITION. BILATERAL UPPER SIDE RAILS UP AND LOCKED. CALL LIGHT WITHIN EASY REACH
[2018-09-01] MEDS ORDERED: methylPREDNISolone (4MG) 4 MG TABLET (DAY #1 ACB) PO ONE (07:30)
[2018-09-01 08:00] VITALS: BP 169/76
[2018-09-01] MEDS ORDERED: METO10TA3 PO (08:33)
[2018-09-01] MEDS ORDERED: CYCL30DR EACHEYE (08:33)
[2018-09-01] MEDS ORDERED: GABA-532 PO (08:33)
[2018-09-01] MEDS ORDERED: OLOP2.5D5 EACHEYE (08:38)
[2018-09-01] MEDS: LABETALOL HCL (100MG) 100 MG TABLET PO SCH ×2 (12:29→17:26)
[2018-09-01] MEDS: SEVELAMER CARBONATE 800 MG TABLET PO SCH ×2 (12:30→17:26)
[2018-09-01] MEDS ORDERED: methylPREDNISolone (4MG) 4 MG TABLET (DAY #1, PC LUNCH) PO ONE (12:30)
[2018-09-01] MEDS: OLOPATADINE HCL 0.1% OPHTH BOTTLE EACHEYE SCH ×2 (14:23→17:25)
[2018-09-01 16:00] VITALS: BP 174/76
[2018-09-01] MEDS: POTASSIUM CHLORIDE 10 MEQ TABLET.SA PO SCH (17:26)
[2018-09-01] MEDS: FUROSEMIDE 80 MG TABLET PO SCH (17:26)
[2018-09-01] MEDS ORDERED: methylPREDNISolone (4MG) 4 MG TABLET (DAY#3,PC DINNER) PO ONE (17:30)
[2018-09-01] MEDS ORDERED: methylPREDNISolone (4MG) 4 MG TABLET (DAY #1 PC DINNER) PO ONE (17:30)
--- NOTE | 2018-09-01 18:40 | NUR ---
MS RN NOTES PATIENT RESTING INSIDE ROOM. AWAKE, ALERT AND ORIENTED, VERBALLY RESPONSIVE AND RESPONDS TO VERBAL AND TACTILE STIMULI. BREATHING EVEN ADN UNLABORED. NO ACUTE DISTRESS AT THIS TIME. DENIES ANY PAIN OR DISCOMFORT. NO CHANGES IN LOC NOTED. AV SHUNT ON SHELBY, BRUIT AND THRILL PRESENT. ALL NURSING NEEDS ATTENDED AND MET. PATIENT KEPT CLEAN, DRY AND COMFORTABLE. WILL ENDORSE TO INCOMING SHIFT FOR LAURO. BED LOCKED AND IN LOW POSITION. BILATERAL UPPER SIDE RAILS UP AND LOCKED. CALL LIGHT WITHIN EASY REACH
--- NOTE | 2018-09-01 19:35 | NUR ---
RN OPENING NOTES RECEIVED REPORT FROM ANTONELLA RNADRIEN. FOUND Pt AWAKE, RESTING IN BED. RESPIRATIONS EVEN AND UNLABORED. NO S/S OF ACUTE DISTRESS OR SOB NOTED. NO C/O PAIN AT THIS TIME. IV ACCESS ON RAC #20G, SL. AV SHUNT LOCATED ON SHELBY. SAFETY MEASURES IN PLACE. BED LOW, LOCKED, HOB ELEVATED, SIDE RAILS UP, CALL LIGHT AND BEDSIDE TABLE WITHIN REACH. WILL CONTINUE TO MONITOR Pt's CONDITION AND SAFETY THROUGHOUT THE NIGHT.
[2018-09-01 20:00] VITALS: BP 168/71
[2018-09-01] MEDS: GABAPENTIN 100 MG CAPSULE PO SCH (21:43)
[2018-09-01] MEDS: MAGNESIUM HYDROXIDE 30 ML UDC PO PRN (21:43)
[2018-09-01] MEDS ORDERED: methylPREDNISolone (4MG) 4 MG TABLET (DAY1,HS) PO ONE (22:00)
[2018-09-02] MEDS: PANTOPRAZOLE 40 MG TABLET.DR PO SCH (07:01)
[2018-09-02] MEDS ORDERED: methylPREDNISolone (4MG) 4 MG TABLET (DAY#2 ACB) PO ONE (07:30)
--- NOTE | 2018-09-02 07:30 | NUR ---
RN CLOSING NOTES NO SIGNIFICANT CHANGES IN Pt's CONDITION. Pt REMAINED STABLE THROUGHOUT THE SHIFT. NO S/S OF ACUTE DISTRESS OR SOB NOTED DURING THE NIGHT. RESPIRATIONS EVEN AND UNLABORED. SAFETY MEASURES IN PLACE. ENDORSED TO DAYSHIFT RN FOR Pt's LAURO.
[2018-09-02 07:39] LABS: BASOPHILS % (AUTO) 0.1 % (0.0-2.0); HEMATOCRIT 30 % (39-51); HEMOGLOBIN 10.3 g/dL (13.5-17.5); LYMPHOCYTES # (AUTO) 0.4 /CMM (0.8-4.8); LYMPHOCYTES % (AUTO) 5.8 % (20.0-44.0); MEAN CORPUSCULAR HGB CONC 34 g/dl (31.0-36.0); MEAN CORPUSCULAR VOLUME 92 fL (80-96); MONOCYTES # (AUTO) 0.4 /CMM (0.1-1.30); MONOCYTES % (AUTO) 5.5 % (2.0-12.0); NEUTROPHILS # (AUTO) 6.7 /CMM (1.8-8.9); NEUTROPHILS % (AUTO) 88.6 % (43.0-81.0); PLATELET COUNT (AUTO) 284 /CMM (150-450); RED BLOOD CELL COUNT(AUTO) 3.25 MIL/uL (4.5-6.0); WHITE BLOOD COUNT (AUTO) 7.5 K/uL (4.3-11.0)
[2018-09-02 07:51] LABS: CALCIUM, SERUM 8.6 mg/dL (8.5-10.1); MAGNESIUM 2.8 mg/dL (1.8-2.4); PHOSPHORUS 3.9 mg/dL (2.5-4.9); POTASSIUM 4.9 mmol/L (3.5-5.1)
[2018-09-02 08:00] VITALS: BP 170/85
--- NOTE | 2018-09-02 08:00 | NUR ---
m/s services executive: initial assessment received pt in bed awake, a/xo4; ugandan speaking with little tongan. umang eyes remains puffiness. no c/o itchiness or any discomfort. instructed to call for assistance. will continue to monitor.
[2018-09-02 08:17] LABS: CREATININE 9.5 mg/dL (0.6-1.3)
[2018-09-02] MEDS: SEVELAMER CARBONATE 800 MG TABLET PO SCH ×3 (08:40→17:51)
[2018-09-02] MEDS: FAMOTIDINE (20 MG) 20 MG TABLET PO SCH (08:41)
[2018-09-02] MEDS: METOLAZONE 2.5 MG TABLET PO SCH (08:41)
[2018-09-02] MEDS: PYRIDOXINE HCL 50 MG TABLET PO SCH (08:41)
[2018-09-02] MEDS: FUROSEMIDE 80 MG TABLET PO SCH ×2 (08:41→17:50)
[2018-09-02] MEDS: POTASSIUM CHLORIDE 10 MEQ TABLET.SA PO SCH ×2 (08:41→17:50)
[2018-09-02] MEDS: OLOPATADINE HCL 0.1% OPHTH BOTTLE EACHEYE SCH ×2 (08:42→17:50)
[2018-09-02] MEDS: LABETALOL HCL (100MG) 100 MG TABLET PO SCH ×2 (08:42→17:50)
[2018-09-02] MEDS: AMLODIPINE BESYLATE 10 MG TABLET PO SCH (08:42)
[2018-09-02] MEDS: POLYETHYLENE GLYCOL 3350 17 GM POWD.PACK PO SCH (08:45)
[2018-09-02] MEDS ORDERED: methylPREDNISolone DOSPAK(4MG) 1 PACK TAB.DS.PK PO ONE (09:00)
[2018-09-02] MEDS ORDERED: RESTASIS EACHEYE SCH (09:00)
--- NOTE | 2018-09-02 09:59 | NUR ---
m/s load planner: pulmo f/u seen by dr. ray with order for hd today.
[2018-09-02] MEDS ORDERED: methylPREDNISolone (4MG) 4 MG TABLET (DAY#2,PC LUNCH) PO ONE (12:30)
[2018-09-02] MEDS ORDERED: NEPRO VAN 237 ML CAN PO PRN (15:00)
[2018-09-02 16:00] VITALS: BP 144/70
[2018-09-02] MEDS ORDERED: methylPREDNISolone (4MG) 4 MG TABLET (DAY#2, PC DINNER) PO ONE (17:30)
--- NOTE | 2018-09-02 19:40 | NUR ---
RN OPENING NOTES RECEIVED REPORT FROM DAYSHIFT NURSE FROM REGISTRY. FOUND Pt AWAKE, RESTING IN BED. HD BEING DONE AT BEDSIDE. RESPIRATIONS EVEN AND UNLABORED. NO S/S OF ACUTE DISTRESS OR SOB NOTED. NO C/O PAIN AT THIS TIME. IV ACCESS ON RAC #20G, SL. AV SHUNT LOCATED ON SHELBY. SAFETY MEASURES IN PLACE. BED LOW, LOCKED, HOB ELEVATED, SIDE RAILS UP, CALL LIGHT AND BEDSIDE TABLE WITHIN REACH. WILL CONTINUE TO MONITOR Pt's CONDITION AND SAFETY THROUGHOUT THE NIGHT.
[2018-09-02 20:00] VITALS: BP 160/75
[2018-09-02] MEDS ORDERED: methylPREDNISolone (4MG) 4 MG TABLET (DAY#2, HS) PO ONE (21:00)
[2018-09-02] MEDS: GABAPENTIN 100 MG CAPSULE PO SCH (21:10)
[2018-09-03] MEDS: PANTOPRAZOLE 40 MG TABLET.DR PO SCH (06:30)
--- NOTE | 2018-09-03 06:45 | NUR ---
RN CLOSING NOTES NO SIGNIFICANT CHANGES IN Pt's CONDITION. Pt REMAINED STABLE THROUGHOUT THE NIGHT. NO S/S OF ACUTE DISTRESS OR SOB NOTED DURING THE SHIFT. Pt's RESPIRATIONS ARE EVEN AND UNLABORED. SAFETY MEASURES IN PLACE. WILL ENDORSE TO DAYSHIFT RN FOR Pt's LAURO.
[2018-09-03] MEDS ORDERED: methylPREDNISolone (4MG) 4 MG TABLET (DAY#3,ACB) PO ONE (07:30)
[2018-09-03 08:00] VITALS: BP 168/77
--- NOTE | 2018-09-03 08:10 | NUR ---
MS RN NOTES PATIENT RECEIVED RESTING INSIDE ROOM, AWAKE, ALERT AND ORIENTED, VERBALLY RESPONSIVE AND RESPONDS TO VERBAL AND TACTILE STIMULI. BREATHING EVEN AND UNLABORED. DENIES ANY PAIN OR DISCOMFORT AT THIS TIME. AV SHUNT ON LEFT ARM, BRUIT AND THRILL PRESENT. PATIENT CALM AND RELAXED. WILL CONTINUE TO MONITOR. BED LOCKED AND IN LOW POSITION. BILATERAL UPPER SIDE RAILS UP AND LOCKED. CALL LIGHT WITHIN EASY REACH
[2018-09-03] MEDS: POLYETHYLENE GLYCOL 3350 17 GM POWD.PACK PO SCH (09:00)
[2018-09-03] MEDS: OLOPATADINE HCL 0.1% OPHTH BOTTLE EACHEYE SCH ×2 (09:11→16:33)
[2018-09-03] MEDS: SEVELAMER CARBONATE 800 MG TABLET PO SCH ×3 (09:11→17:15)
[2018-09-03] MEDS: AMLODIPINE BESYLATE 10 MG TABLET PO SCH (09:11)
[2018-09-03] MEDS: METOLAZONE 2.5 MG TABLET PO SCH (09:12)
[2018-09-03] MEDS: FUROSEMIDE 80 MG TABLET PO SCH ×2 (09:12→16:30)
[2018-09-03] MEDS: FAMOTIDINE (20 MG) 20 MG TABLET PO SCH (09:12)
[2018-09-03] MEDS: LABETALOL HCL (100MG) 100 MG TABLET PO SCH ×2 (09:12→16:32)
[2018-09-03] MEDS: PYRIDOXINE HCL 50 MG TABLET PO SCH (09:12)
[2018-09-03] MEDS: POTASSIUM CHLORIDE 10 MEQ TABLET.SA PO SCH ×2 (09:12→16:30)
[2018-09-03] MEDS ORDERED: methylPREDNISolone (4MG) 4 MG TABLET (DAY#3,PC LUNCH) PO ONE (12:30)
[2018-09-03 16:00] VITALS: BP 153/73
[2018-09-03] MEDS ORDERED: methylPREDNISolone (4MG) 4 MG TABLET (DAY#3,PC DINNER) PO ONE (17:30)
--- NOTE | 2018-09-03 18:29 | NUR ---
MS RN NOTES PATIENT RESTING INSIDE ROOM. AWAKE, ALERT AND ORIENTED, VERBALLY RESPONSIVE AND RESPONDS TO VERBAL AND TACTILE STIMULI. BREATHING EVEN AND UNLABORED. NO CHANGES IN LOC NOTED AT THIS TIME. PATIENT KEPT CLEAN, DRY AND COMFORTABLE. PROVIDED WITH CALM, SAFE, HAZARD-FREE ENVIRONMENT. WILL ENDORSE TO INCOMING SHIFT FOR LAURO. BED LOCKED AND IN LOW POSITION. BILATERAL UPPER SIDE RAILS UP AND LOCKED. CALL LIGHT WITHIN EASY REACH
--- NOTE | 2018-09-03 19:40 | NUR ---
RN OPENING NOTES RECEIVED REPORT FROM ANTONELLA RNADRIEN. FOUND Pt AWAKE, RESTING IN BED. Pt IS A/OX4, BELARUSIAN SPEAKER, UNDERSTANDS SOME BELIZEAN, VERBAL, AND ABLE TO MAKE NEEDS KNOWN. RESPIRATIONS EVEN AND UNLABORED. NO S/S OF ACUTE DISTRESS OR SOB NOTED. NO C/O PAIN AT THIS TIME. IV ACCESS ON RAC #20G, SL. AV SHUNT LOCATED ON SHELBY. SAFETY MEASURES IN PLACE. BED LOW, LOCKED, HOB ELEVATED, SIDE RAILS UP, CALL LIGHT AND BEDSIDE TABLE WITHIN REACH. WILL CONTINUE TO MONITOR Pt's CONDITION AND SAFETY THROUGHOUT THE NIGHT.
[2018-09-03 20:00] VITALS: BP 144/69
[2018-09-03] MEDS: GABAPENTIN 100 MG CAPSULE PO SCH (21:03)
[2018-09-03] MEDS: MAGNESIUM HYDROXIDE 30 ML UDC PO PRN (21:13)
[2018-09-03] MEDS ORDERED: methylPREDNISolone (4MG) 4 MG TABLET (DAY#3, HS) PO ONE (22:00)
[2018-09-04] MEDS: PANTOPRAZOLE 40 MG TABLET.DR PO SCH (06:41)
[2018-09-04 07:10] LABS: CALCIUM, SERUM 8.2 mg/dL (8.5-10.1); MAGNESIUM 2.9 mg/dL (1.8-2.4); POTASSIUM 5.3 mmol/L (3.5-5.1)
[2018-09-04] MEDS ORDERED: methylPREDNISolone (4MG) 4 MG TABLET (DAY #4, ACB) PO ONE (07:30)
[2018-09-04 07:36] LABS: CREATININE 9.7 mg/dL (0.6-1.3)
[2018-09-04 08:00] VITALS: BP 129/66
--- NOTE | 2018-09-04 08:15 | NUR ---
MS/RN - Assessment Patient in bed awake, A/O x 4, denies pain, no apparent distress seen, stable on room air. Saline lock on the RAC is patent, intact, with no signs of infiltration. Patient states feeling better, facial swelling improved. Patient is ambulatory with steady gait. All needs attended. Patient updated on treatment plan. Anticipate discharge to SNF ([facility]) today if remain stable. Will continue with current medical management.
[2018-09-04] MEDS: POLYETHYLENE GLYCOL 3350 17 GM POWD.PACK PO SCH (08:33)
[2018-09-04] MEDS: LABETALOL HCL (100MG) 100 MG TABLET PO SCH ×3 (08:33→20:21)
[2018-09-04] MEDS: METOLAZONE 2.5 MG TABLET PO SCH (08:34)
[2018-09-04] MEDS: FAMOTIDINE (20 MG) 20 MG TABLET PO SCH (08:34)
[2018-09-04] MEDS: AMLODIPINE BESYLATE 10 MG TABLET PO SCH (08:34)
[2018-09-04] MEDS: SEVELAMER CARBONATE 800 MG TABLET PO SCH ×3 (08:34→17:28)
[2018-09-04] MEDS: FUROSEMIDE 80 MG TABLET PO SCH ×2 (08:34→16:02)
[2018-09-04] MEDS: POTASSIUM CHLORIDE 10 MEQ TABLET.SA PO SCH ×2 (08:34→16:02)
[2018-09-04] MEDS: PYRIDOXINE HCL 50 MG TABLET PO SCH (08:34)
[2018-09-04] MEDS: OLOPATADINE HCL 0.1% OPHTH BOTTLE EACHEYE SCH ×2 (08:34→16:13)
[2018-09-04] MEDS ORDERED: methylPREDNISolone (4MG) 4 MG TABLET (DAY #4, PC LUNCH) PO ONE (12:30)
[2018-09-04] MEDS ORDERED: METH4TAB17 PO ×2 (14:54)
--- NOTE | 2018-09-04 15:45 | NUR ---
MS/RN - Notes Discussed with patient that he'll be discharged to [facility] after HD treatment. Spoke with HD RN, end time for dialysis around 20:00.
--- NOTE | 2018-09-04 16:04 | NUR ---
MS/RN - Notes Blood pressure medications not given due to patient scheduled for HD treatment today.
[2018-09-04 16:42] VITALS: BP 139/63
--- NOTE | 2018-09-04 17:26 | NUR ---
MS/RN - End of shift summary No significant change in condition seen, stable for discharge to SNF ([facility]) tonight, remain afebrile, denies pain, no c/o itchiness, facial swelling improved. HD treatment ongoing, end time around 19:30 per HD RN, ambulance ETA 20:00. Reviewed discharge instructions with patient and he verbalized understanding. Will endorse to night RN for completion of discharge.
[2018-09-04 20:00] VITALS: BP 169/77
--- NOTE | 2018-09-04 20:00 | NUR ---
MS RN NOTES AWAKE & RESPONSIVE. NOT IN ANY DISTRESS. NO SOB NOTED. DENIES ANY PAIN OR DISCOMFORT AT THIS TIME. WITH IV-HL PATENT & INTACT. PT FOR DISCHARGE TO [facility]. DISCHARGE INSTRUCTIONS PROVIDED. MED RECON DONE. PT UNDERSTOOD IT WELL. S/P HD. CLEANING ONLY. CALLED TAYLOR MORRIS SUP FROM [facility]. REPORT GIVEN TO TAYLOR MORRIS FOR CONTINUITY OF CARE. CALL LIGHT WITH REACH. BED IN LOWEST POSITION. SR UP X 2 FOR SAFETY. WILL CONTINUE TO MONITOR.
[2018-09-04 21:00] VITALS: BP 152/72
--- NOTE | 2018-09-04 21:00 | NUR ---
MS RN NOTES PT LEFT THE FACILITY IN FAIR & STABLE CONDITION. IV-HL D/CD. PT TOLERATED WELL. VSS. AFEBRILE. BELONGINGS SENT WITH PT. REPORT GIVEN TO AMBULANCE PERSONNEL FOR CONTINUITY OF CARE.
[2018-09-04] MEDS ORDERED: methylPREDNISolone (4MG) 4 MG TABLET (DAY#4 HS) PO ONE (22:00)
[2018-09-05] MEDS ORDERED: methylPREDNISolone (4MG) 4 MG TABLET (DAY#5, ACB) PO ONE (07:30)
[2018-09-05] MEDS ORDERED: methylPREDNISolone (4MG) 4 MG TABLET (DAY#5,HS) PO ONE (22:00)
[2018-09-06] MEDS ORDERED: methylPREDNISolone (4MG) 4 MG TABLET (DAY#6,ACB) PO ONE (07:30)
== END 2018-09-04 21:00 | DRG 915 ==
LOC: ER 03:26 → TELE 05:31 → MED 10:14
PROVIDERS: ADMIT Nurse Practitioner Acute Care; ATTEND Hospitalist
PROC: 5A1D70Z Performance of Urinary Filtration, Intermittent, Less than 6 Hours Per Day (ICD-10-PCS; principal; 2018-09-02)
PROC: 5A1D70Z Performance of Urinary Filtration, Intermittent, Less than 6 Hours Per Day (ICD-10-PCS; 2018-09-04)
DX: T78.40XA Allergy, unspecified, initial encounter (principal); N18.6 End stage renal disease; E43 Unspecified severe protein-calorie malnutrition; I13.2 Hypertensive heart and chronic kidney disease with heart failure and with stage 5 chronic kidney disease, or end stage renal disease; X58.XXXA Exposure to other specified factors, initial encounter; D63.8 Anemia in other chronic diseases classified elsewhere; I25.10 Atherosclerotic heart disease of native coronary artery without angina pectoris; Z79.899 Other long term (current) drug therapy; Z99.2 Dependence on renal dialysis; I50.9 Heart failure, unspecified
CPT/HCPCS: 36415; 71045-TC; 80048-TC; 80076-TC; 83735-TC; 83880; 84100-TC; 84484-TC; 85025-TC; 87081-TC; 90935-TC; 93307-TC; G0378; J1200; J2930; J7509

== ENCOUNTER 2018-09-20 17:26 | Emergency (ER) | payer OTHER ==
[~2018-09-20] VITALS: Ht 167.6 cm; Wt 67.6 kg
[2018-09-20 17:26] VITALS: BP 109/72
[~2018-09-20 17:26] MED LIST changes: +CYCL30DR EACHEYE; +GABA-532 PO; +METH4TAB17 PO; +METO10TA3 PO; +OLOP2.5D5 EACHEYE
--- NOTE | 2018-09-20 18:26 | NUR ---
CALLED TAXI FOR PT
--- NOTE | 2018-09-20 18:36 | NUR ---
pt taken to lobby for taxi ride home pt given prescription and acxi
== END 2018-09-20 18:39 | disposition home or self-care (01) ==
LOC: ER 17:28
DX: J40 Bronchitis, not specified as acute or chronic (principal); G62.9 Polyneuropathy, unspecified; I12.0 Hypertensive chronic kidney disease with stage 5 chronic kidney disease or end stage renal disease; N18.6 End stage renal disease; Z99.2 Dependence on renal dialysis; Z98.890 Other specified postprocedural states; Z60.2 Problems related to living alone
CPT/HCPCS: 99283; A4606

== ENCOUNTER 2018-10-24 13:42 | Inpatient (IN) | payer MEDICARE, OTHER ==
[~2018-10-24] VITALS: Ht 167.6 cm; Wt 63.5 kg
[~2018-10-24 13:42] MED LIST changes: +PYRI-6 PO; -PYRI50TA9 PO
--- NOTE | 2018-10-24 14:15 | NUR ---
PT TO ER BED 1. AAOX4. NAD. DENIES CP. NO SOB. C/O ABDOMINAL PAIN, NAUSEA AND VOMITING SINCE YESTERDAY. MD AT BEDSIDE. ORDERS RECEIVED
[2018-10-24] MEDS ORDERED: ONDANSETRON HCL/PF 4 MG/2 ML VIAL ONE (14:17)
[2018-10-24] MEDS ORDERED: IV NS 0.9% 500 ML BAG IV ONE (14:30)
[2018-10-24] MEDS ORDERED: ONDANSETRON HCL/PF 4 MG/2 ML VIAL IVP ONE (14:30)
--- NOTE | 2018-10-24 14:34 | NUR ---
IV ACCESS OBTAINED ON R AC 18G. BLOOD DRAWN SENT TO LAB
--- NOTE | 2018-10-24 14:41 | NUR ---
INSTRUCTIONAL COACH AT BEDSIDE
[2018-10-24 14:45] LABS: BASOPHILS % (AUTO) 0.8 % (0.0-2.0); EOSINOPHILS % (AUTO) 0.1 % (0.0-6.0); HEMATOCRIT 38 % (39-51); HEMOGLOBIN 12.8 g/dL (13.5-17.5); LYMPHOCYTES # (AUTO) 0.3 /CMM (0.8-4.8); LYMPHOCYTES % (AUTO) 5.5 % (20.0-44.0); MEAN CORPUSCULAR HGB CONC 34 g/dl (31.0-36.0); MEAN CORPUSCULAR VOLUME 91 fL (80-96); MONOCYTES # (AUTO) 0.7 /CMM (0.1-1.30); NEUTROPHILS # (AUTO) 4.5 /CMM (1.8-8.9); NEUTROPHILS % (AUTO) 81.6 % (43.0-81.0); PLATELET COUNT (AUTO) 168 /CMM (150-450); RED BLOOD CELL COUNT(AUTO) 4.14 MIL/uL (4.5-6.0); WHITE BLOOD COUNT (AUTO) 5.5 K/uL (4.3-11.0)
--- NOTE | 2018-10-24 14:50 | NUR ---
DR ALMEIDA AT BEDSIDE, RECEIVED VERBAL ORDER OF MORPHINE 2MG IV. CARRIED OUT ORDER
[2018-10-24] MEDS ORDERED: MORPHINE SULFATE INJ 2 MG/ML DISP.SYRIN ONE (14:52)
[2018-10-24 14:58] LABS: ALANINE AMINOTRANSFERASE 15 U/L (12-78); ALBUMIN 4.5 g/dL (3.4-5.0); ALKALINE PHOSPHATASE 99 U/L (46-116); ASPARTATE AMINOTRANSFERASE 9 U/L (15-37); BILIRUBIN,DIRECT 0.2 mg/dL (0.0-0.2); BILIRUBIN,TOTAL 0.9 mg/dL (0.2-1.0); CALCIUM, SERUM 8.6 mg/dL (8.5-10.1); CARBON DIOXIDE 33 mmol/L (21-32); CHLORIDE 97 mmol/L (98-107); CREATININE 5.3 mg/dL (0.6-1.3); GLUCOSE 108 mg/dL (74-106); LIPASE 97 U/L (73-393); POTASSIUM 3.7 mmol/L (3.5-5.1); SODIUM SERUM 137 mmol/L (136-145); TOTAL PROTEIN, SERUM 7.7 g/dL (6.4-8.2); UREA NITROGEN, BLOOD 19 mg/dL (7-18)
[2018-10-24] MEDS ORDERED: MORPHINE SULFATE INJ 2 MG/ML DISP.SYRIN IV ONE (15:00)
--- NOTE | 2018-10-24 15:12 | NUR ---
PT WHEELED OUT VIA [employer] FOR CT SCAN.
[2018-10-24] MEDS ORDERED: PIPERACILLIN /TAZOBACTAM 3.375 G in IV D5W 50 ML IV ONE (16:30)
[2018-10-24] MEDS ORDERED: LEVOFLOXACIN 750 MG /D5W 150ML 150 ML IV ONE ×2 (16:30→16:55)
--- NOTE | 2018-10-24 16:37 | NUR ---
CALLED OFFICE OF BRITTNEY HECTOR MD
--- NOTE | 2018-10-24 17:20 | NUR ---
PT COMFORTABLE IN BED ASLEEP. NAD NOTED, HOOKED TO MONITOR.
--- NOTE | 2018-10-24 18:18 | NUR ---
REPORT GIVEN TO SABRINA OF TELE UNIT
[2018-10-24 18:30] VITALS: BP 189/82
--- NOTE | 2018-10-24 18:30 | NUR ---
FORESTRY WORKERSSUPERVISOR DIALS NOTE RECEIVED PT FROM ER VIA BOAZ WASSERMAN OF [facility]. PT IS ALERT AND ORIENTED X4, MALAY AND PASHTO SPEAKING. VS OBTAINED AND ARE FOLLOWS: BP: 189/82, HR: 73, R: 22, T: 100.1, SP02: 98% ON 3L NC. PT PLACED ON LITHOGRAPHIC GENERAL WORKER AND IS CURRENTLY SINUS RHYTHM, HR IN 70'S. PT HAS A RIGHT AC #18G THAT IS PATENT, CLEAN, DRY AND INTACT AND A LEFT UPPER ARM FISTULA POSITIVE FOR BRUIT AND THRILL. COOLING MEASURES INITIATED. PT STATES HE HAS EPIGASTRIC ABD PAIN THAT IS RATED 5/10 AND ACHING ASSOCIATED WITH NON-BLOODY EMESIS. ADMITTING UNDER DR. MCCARTHY, PENDING ADMISSION ORDERS. PENDING ADMISSION AND WOUND DOCUMENTATION PER PROTOCOL. WILL ENDORSE TO MAINOR SHIFT NURSE.
--- NOTE | 2018-10-24 18:47 | NUR ---
TIRE ADJUSTER NOTE PAGED NEPHROLOGY OFFICE FOR ADMISSION ORDERS. PER CASTING AND CURING OPERATOR IS TEXTILE CHEMIST. PROVIDED CALL BACK INFORMATION.
--- NOTE | 2018-10-24 19:31 | NUR ---
PAGED MACIEL FOR ADMITTING ORDERS AWAITING CALL BACK
--- NOTE | 2018-10-24 19:31 | NUR ---
MS RN RECEIVE PT IN BED A/O X 3, POLISH/GREEK. RESPIRATIONS EVEN AND UNLABORED, NO SOB NOTED, NO DISTRESS, SAFETY MEASURES IN PLACE. WILL CONTINUE TO MONITOR.
--- NOTE | 2018-10-24 19:41 | NUR ---
NEPHRO CALLED BACK SPOKE TO SHEET HEATER HELPER YAZMIN CALDERON RELAYED PT'S HISTORY RECEIVE ADMITTING ORDERS AND REVIEW ALL HOME MEDICATIONS PER DR. AGUILERA CONT ALL HOME MEDS READ BACK AND VERIFIED ORDERS NOTED AND CARRIED OUT.
[2018-10-24 20:00] VITALS: BP 175/81
[2018-10-24 20:05] VITALS: BP 155/72
[2018-10-24] MEDS ORDERED: PIPERACILLIN /TAZOBACTAM 3.375 G in IV D5W 50 ML IV SCH (21:00)
[2018-10-24] MEDS ORDERED: METOCLOPRAMIDE HCL 10 MG TABLET PO PRN (21:00)
[2018-10-24] MEDS ORDERED: RESTASIS EYE DROPS EACHEYE SCH (21:00)
[2018-10-24] MEDS: GABAPENTIN 100 MG CAPSULE PO SCH (21:31)
[2018-10-24] MEDS: TRAMADOL HCL 50 MG TABLET PO PRN (21:56)
[2018-10-24] MEDS ORDERED: methylPREDNISolone (4MG) 4 MG TABLET PO SCH (22:00)
[2018-10-25] VITALS (9 sets, daily range): BP systolic 135–188; BP diastolic 61–94
[2018-10-25] MEDS: PIPERACILLIN /TAZOBACTAM 3.375 G in IV D5W 100 ML IV SCH ×2 (00:36→12:06)
--- NOTE | 2018-10-25 02:22 | NUR ---
BRITTNEY AND SPOKE TO RADIATION TECHNICIAN NEPHRO RELAYED HIGH BP CHECKED BP OF THE PT VS BP: 180/94 PULSE 72 TEMP 98.9 02 SAT 98% R 17
[2018-10-25] MEDS ORDERED: hydrALAZINE HCL 25 MG TABLET PO PRN (02:30)
--- NOTE | 2018-10-25 06:13 | NUR ---
COST RECORDER CLOSING PT ASLEEP AND EASILY AWAKEN, SR 72 IN THE TELE MONITOR. RESPIRATION EVEN AND UNLABORED, STABLE AND NOT IN DISTRESS, AM CARE RENDERED, AFEBRILE. NEEDS ATTENDED AND ANTICIPATED, KEPT CLEAN AND DRY AND COMFORTABLE. NO COMPLAIN OF PAIN. SAFETY MEASURES AT ALL TIMES. ENDORSE TO THE NEXT SHIFT POC.
[2018-10-25 07:30] LABS: BASOPHILS % (AUTO) 0.2 % (0.0-2.0); HEMATOCRIT 36 % (39-51); HEMOGLOBIN 11.9 g/dL (13.5-17.5); LYMPHOCYTES # (AUTO) 0.3 /CMM (0.8-4.8); LYMPHOCYTES % (AUTO) 4.1 % (20.0-44.0); MEAN CORPUSCULAR HGB CONC 34 g/dl (31.0-36.0); MEAN CORPUSCULAR VOLUME 91 fL (80-96); MONOCYTES # (AUTO) 0.7 /CMM (0.1-1.30); MONOCYTES % (AUTO) 8.7 % (2.0-12.0); NEUTROPHILS # (AUTO) 6.8 /CMM (1.8-8.9); PLATELET COUNT (AUTO) 151 /CMM (150-450); RED BLOOD CELL COUNT(AUTO) 3.92 MIL/uL (4.5-6.0); WHITE BLOOD COUNT (AUTO) 7.8 K/uL (4.3-11.0)
[2018-10-25] MEDS ORDERED: methylPREDNISolone (4MG) 4 MG TABLET PO SCH (07:30)
--- NOTE | 2018-10-25 07:44 | NUR ---
HI LIFT OPERATOR OPENING NOTES RECEIVED PATIENT ON BED WITH HOB ELEVATED, A/O X 4 AND ABLE TO MAKE NEEDS KNOWN. RESPONSIVE TO ALL STIMULI. RESPIRATION EVEN AND NON LABORED WITH NO ACUTE RESPIRATORY DISTRESS, ON O2 AT 3LPM VIA NASAL CANNULA AND TOLERATED WELL. ABDOMEN SOFT AND NON DISTENDED WITH ACTIVE BOWEL SOUNDS. SKIN WARM TO TOUCH AND MOIST TO TOUCH, NO OPEN SKIN BREAKDOWN NOTED. COMPLAIN OF ON AND OFF STOMACH PAIN 5/10 YET ABLE TO TOLERATE WELL. IV SITE AT RIGHT AC 18 GAUGE PATENT IN FLUSHING, SITE NO S/SX OF INFILTRATION. LEFT ARM FISTULA NOTED DUE TO HD. PER TELE MONITOR WITH SR 74. ALL CONCERNS ADDRESSED, PLACED CALL LIGHT WITHIN REACH TO ENSURE SAFETY.
[2018-10-25 07:45] LABS: MAGNESIUM 2.1 mg/dL (1.8-2.4); PHOSPHORUS 4.7 mg/dL (2.5-4.9); POTASSIUM 4.5 mmol/L (3.5-5.1)
[2018-10-25] MEDS: LISINOPRIL (20MG) 20 MG TABLET PO SCH (08:23)
[2018-10-25] MEDS: SEVELAMER CARBONATE 800 MG TABLET PO SCH ×3 (08:23→17:27)
[2018-10-25] MEDS: PYRIDOXINE HCL 50 MG TABLET PO SCH (08:23)
[2018-10-25] MEDS: VIT B CMPLX 3/FA/VIT C/BIOTIN 1 TAB TABLET PO SCH (08:23)
[2018-10-25] MEDS: AMLODIPINE BESYLATE 10 MG TABLET PO SCH (08:23)
[2018-10-25] MEDS: FUROSEMIDE 40 MG TABLET PO SCH (08:24)
[2018-10-25] MEDS: DULOXETINE HCL 30 MG CAPSULE.DR PO SCH (08:24)
[2018-10-25] MEDS: METOLAZONE 2.5 MG TABLET PO SCH (08:24)
[2018-10-25] MEDS: PANTOPRAZOLE 40 MG TABLET.DR PO SCH (08:24)
[2018-10-25] MEDS: POTASSIUM CHLORIDE 10 MEQ TABLET.SA PO SCH ×2 (08:24→17:27)
[2018-10-25] MEDS: LABETALOL HCL (100MG) 100 MG TABLET PO SCH ×2 (08:24→17:27)
[2018-10-25] MEDS: POLYETHYLENE GLYCOL 3350 17 GM POWD.PACK PO SCH (08:25)
[2018-10-25] MEDS ORDERED: PAZEO EYE EACHEYE SCH (09:00)
[2018-10-25] MEDS ORDERED: LINZESS 145MCG PO SCH (09:00)
[2018-10-25] MEDS ORDERED: NA PHOS,M-B/NA PHOS,DI-BA 1 EA ENEMA RC PRN (13:30)
--- NOTE | 2018-10-25 13:30 | NUR ---
MS/RN PAGED DR JUANA Pandya TO REMIND PATIENT STILL NEEDS H&P NOTES, ALSO TO RELAY PATIENT BUN/CR 31H/7.0H COMPARED TO YESTERDAY. WILL AWAIT FOR CALL BACK.
[2018-10-25 13:37] LABS: IRON, SERUM 13 ug/dl (50-175); TOTAL IRON BINDING CAPACITY 150 ug/dl (250-450)
[2018-10-25 13:51] LABS: FERRITIN 771 ng/mL (8-388)
--- NOTE | 2018-10-25 14:10 | NUR ---
MS/RN DR JUANA Pandya NOTED ON THE FLOOR AT THIS TIME. SPOKE WITH DR JUANA Pandya AND NOTIFIED PATIENT ADMITTED YESTERDAY AND STILL NEEDED H&P AND ALSO NOTIFIED ABNORMAL LAB. PER DR ARIAS, HE SAW THE PATIENT YESTERDAY AND HE WILL FINISH THE H&P AND HIS PROGRESS NOTES TODAY. ALSO NO ORDERS AT THIS TIME FOR ABNORMAL LAB, SCHEDULE FOR H/D TOMORROW. PATIENT NOTIFIED. WILL CONTINUE TO MONITOR TO ENSURE SAFETY.
--- NOTE | 2018-10-25 14:50 | NUR ---
MS/RN SEEN AND EXAMINED BY HAIDER MORA (GI) FOR DR FISHER, WITH ORDERS TO ADMINISTER ENEMA X 1.
[2018-10-25] MEDS: LACTOBACILLUS RHAMNOSUS GG 1 EACH CAP.SPRINK PO SCH (17:27)
[2018-10-25] MEDS: LEVOFLOXACIN 750 MG /D5W 150ML 750 MG in PREMIX 1 EA IV SCH (18:04)
[2018-10-25] MEDS: DOCUSATE SODIUM 100 MG CAPSULE PO SCH (18:29)
--- NOTE | 2018-10-25 19:01 | NUR ---
M/S RN CLOSING NOTES PATIENT A/O X 4 AND ABLE TO MAKE NEEDS KNOWN, RESPONSIVE TO ALL STIMULI. RESPIRATION EVEN AND NON LABORED WITH NO ACUTE RESPIRATORY DISTRESS, ON O2 AT 3LPM VIA NASAL CANNULA AND TOLERATED WELL. ABDOMEN SOFT AND NON DISTENDED WITH ACTIVE BOWEL SOUNDS. SKIN WARM TO TOUCH AND DRY. PATIENT DENIES PAIN AND DISCOMFORT AT THIS TIME. IV SITE AT RIGHT AC GAUGE 18 PATENT IN FLUSHING, LEFT ARM FISTULA NO WITH BRUIT AND THRILL PRESENT. ALL CONCERNS ADDRESSED. PLACED CALL LIGHT WITHIN REACH FOR SAFETY. ENDORSED TO NEXT SHIFT.
--- NOTE | 2018-10-25 19:45 | NUR ---
MS RN NOTES RECEIVED PATIENT A/O X 4 AND ABLE TO MAKE NEEDS KNOWN, RESPONSIVE TO ALL STIMULI. BREATHING EVEN AND NON LABORED WITH NO ACUTE RESPIRATORY DISTRESS, ON O2 AT 3LPM VIA NASAL CANNULA AND TOLERATED WELL. ABDOMEN SOFT AND NON DISTENDED WITH ACTIVE BOWEL SOUNDS. SKIN WARM TO TOUCH AND DRY. PATIENT DENIES PAIN AND DISCOMFORT AT THIS TIME. IV SITE AT RIGHT AC GAUGE 18 PATENT IN FLUSHING, LEFT ARM FISTULA NO WITH BRUIT AND THRILL PRESENT. ALL CONCERNS ADDRESSED. ALL SAFETY MEASURES IN PLACED,CALL LIGHT WITHIN REACH FBED IN LOW LOCK POSITION, , ASPIRATION PRECAUTION EMPHASIZED. WILL MONITOR ACCORDINGLY.
--- NOTE | 2018-10-25 21:29 | NUR ---
Met with patient, he is alert and pleasant. States he lives locally with two roommates in a single level home. States he is ambulatory and independent with adl's. He has a caregiver Chyna Duran (patient forgot her contact info). She is the [facility] provider 3hrs/day, assist patient with cleaning, food prep and groceries. Patient receives hemodialysis TTHS 5am at [facility]. HD transportation provided by [employer] transport. Patient plan to return home once discharge. Addendum: 10/25/18 at 2129 by ANTHONY JOHNSON RN Amended: Links added.
[2018-10-25] MEDS: GABAPENTIN 100 MG CAPSULE PO SCH (22:15)
[2018-10-26] MEDS: PIPERACILLIN /TAZOBACTAM 3.375 G in IV D5W 100 ML IV SCH ×3 (00:23→23:47)
--- NOTE | 2018-10-26 07:10 | NUR ---
RN NOTES ALL NEEDS ATTENDED, ABLE TO REST AND SLEEP COMFORTABLY, NO SIGNS OF DISTRESS THROUGHOUT THE SHIFT, SAFETY MEASURES IN PLACED, ENDORSE TO AM NURSE FOR CONTINUITY OF CARE.
--- NOTE | 2018-10-26 07:10 | NUR ---
M/S RN OPENING NOTES RECEIVED PATIENT ON BED IN SUPINE POSITION PER PATIENT MORE COMFORTABLE, A/O X 4 AND ABLE TO MAKE NEEDS KNOWN. RESPONSIVE TO ALL STIMULI. RESPIRATION EVEN AND NON LABORED WITH NO ACUTE RESPIRATORY DISTRESS IN ROOM AIR. ABDOMEN SOFT AND NON DISTENDED WITH ACTIVE BOWEL SOUNDS TO ALL QUADRANTS. SKIN WARM TO TOUCH AND DRY. PATIENT DENIES PAIN AND DISCOMFORT. IV SITE AT RIGHT AC 18 GAUGE PATENT IN FLUSHING, SITE NO S/SX OF INFILTRATION. LEFT ARM FISTULA NOTED DUE TO HD. ALL CONCERNS ADDRESSED, PLACED CALL LIGHT WITHIN REACH TO ENSURE SAFETY. WILL CONTINUE TO EVALUATE CARE.
[2018-10-26 08:00] VITALS: BP 152/67
[2018-10-26 08:25] LABS: BASOPHILS % (AUTO) 0.5 % (0.0-2.0); HEMATOCRIT 33 % (39-51); HEMOGLOBIN 11.3 g/dL (13.5-17.5); LYMPHOCYTES # (AUTO) 0.4 /CMM (0.8-4.8); LYMPHOCYTES % (AUTO) 5.3 % (20.0-44.0); MEAN CORPUSCULAR HGB CONC 34 g/dl (31.0-36.0); MEAN CORPUSCULAR VOLUME 91 fL (80-96); MONOCYTES # (AUTO) 0.7 /CMM (0.1-1.30); MONOCYTES % (AUTO) 9.2 % (2.0-12.0); NEUTROPHILS # (AUTO) 6.1 /CMM (1.8-8.9); PLATELET COUNT (AUTO) 140 /CMM (150-450); RED BLOOD CELL COUNT(AUTO) 3.65 MIL/uL (4.5-6.0); WHITE BLOOD COUNT (AUTO) 7.1 K/uL (4.3-11.0)
[2018-10-26 08:26] LABS: ALBUMIN 3.3 g/dL (3.4-5.0); BILIRUBIN,TOTAL 0.7 mg/dL (0.2-1.0); CALCIUM, SERUM 7.7 mg/dL (8.5-10.1); MAGNESIUM 2.3 mg/dL (1.8-2.4); PHOSPHORUS 4.9 mg/dL (2.5-4.9); POTASSIUM 5.2 mmol/L (3.5-5.1); TOTAL PROTEIN, SERUM 6.5 g/dL (6.4-8.2)
[2018-10-26] MEDS: SEVELAMER CARBONATE 800 MG TABLET PO SCH ×3 (08:27→16:59)
[2018-10-26] MEDS: LISINOPRIL (20MG) 20 MG TABLET PO SCH (08:28)
[2018-10-26] MEDS: PYRIDOXINE HCL 50 MG TABLET PO SCH (08:28)
[2018-10-26] MEDS: PANTOPRAZOLE 40 MG TABLET.DR PO SCH (08:28)
[2018-10-26] MEDS: DOCUSATE SODIUM 100 MG CAPSULE PO SCH ×2 (08:28→16:59)
[2018-10-26] MEDS: LABETALOL HCL (100MG) 100 MG TABLET PO SCH ×2 (08:28→16:59)
[2018-10-26] MEDS: METOLAZONE 2.5 MG TABLET PO SCH (08:29)
[2018-10-26] MEDS: FUROSEMIDE 40 MG TABLET PO SCH (08:29)
[2018-10-26] MEDS: POTASSIUM CHLORIDE 10 MEQ TABLET.SA PO SCH ×2 (08:29→16:59)
[2018-10-26] MEDS: VIT B CMPLX 3/FA/VIT C/BIOTIN 1 TAB TABLET PO SCH (08:29)
[2018-10-26] MEDS: DULOXETINE HCL 30 MG CAPSULE.DR PO SCH (08:29)
[2018-10-26] MEDS: AMLODIPINE BESYLATE 10 MG TABLET PO SCH (08:29)
[2018-10-26] MEDS: LACTOBACILLUS RHAMNOSUS GG 1 EACH CAP.SPRINK PO SCH ×2 (08:29→16:59)
[2018-10-26] MEDS: POLYETHYLENE GLYCOL 3350 17 GM POWD.PACK PO SCH (08:30)
--- NOTE | 2018-10-26 08:30 | NUR ---
M/S RN NOTES RECEIVED A CALL FROM SHARITA AT LAB DUE TO RESULT OF CREATININE 9.2. PATIENT NOTIFIED, DIALYSIS WILL BE DONE TODAY. WILL FF UP PROCEDURE
[2018-10-26 08:34] LABS: CREATININE 9.2 mg/dL (0.6-1.3)
--- NOTE | 2018-10-26 12:30 | NUR ---
MS/RN SEEN BY DR JUANA Pandya REMINDED DR ARIAS REGARDS TO PATIENT H&P STILL NOT UPDATED. PER DR ARIAS "HE ALREADY DICTATED IT AND WILL BE UPDATED SOON."
--- NOTE | 2018-10-26 17:00 | NUR ---
M/S RN NOTES 1700 AND 1800 MEDICATION NOT ADMINISTERED DUE TO PATIENT STARTED HEMODIALYSIS. WILL CONTINUE TO MONITOR. PATIENT NOTIFIED REGARDING MEDICATION NON-ADMIN.
--- NOTE | 2018-10-26 17:27 | NUR ---
MS/RN SPOKE WITH DR GORDON AND NOTIFIED, PATIENT COMPLAIN OF NAUSEA AT THIS TIME AND REQUESTING FOR ANTI NAUSEA, REFUSED TO TAKE PRN REGLAN PO SECONDARY TO ONGOING HEMODIALYSIS TREATMENT AT THIS TIME. PER DR GORDON ORDER ZOFRAN 4MG IVP Q 8 HRS PRN FOR N/V. PATIENT NOTIFIED.
[2018-10-26] MEDS ORDERED: ONDANSETRON HCL/PF 4 MG/2 ML VIAL IV PRN (17:30)
--- NOTE | 2018-10-26 18:36 | NUR ---
M/S RN CLOSING NOTES PATIENT A/O X4 AND ABLE TO MAKE NEEDS KNOWN, RESPONSIVE TO ALL STIMULI. RESPIRATION EVEN AND NON LABORED WITH NO ACUTE RESPIRATORY DISTRESS, SATING 99% IN ROOM AIR. ABDOMEN SOFT AND NON DISTENDED WITH ACTIVE BOWEL SOUNDS TO ALL QUADRANTS, BM TODAY AFTER FLEET ENEMA ADMINISTRATION. SKIN WARM TO TOUCH AND DRY. PATIENT DENIES PAIN AND DISCOMFORT. IV SITE AT RIGHT AC 18 GAUGE PATENT IN FLUSHING, SITE NO S/SX OF INFILTRATION. LEFT ARM FISTULA NOTED DUE TO HD, PATIENT STILL ON DIALYSIS AT THIS TIME. ALL CONCERNS ADDRESSED, PLACED CALL LIGHT WITHIN REACH TO ENSURE SAFETY. ENDORSED PATIENT CARE TO NEXT SHIFT.
--- NOTE | 2018-10-26 19:30 | NUR ---
rn initial notes: received report from sathya wright. pt in bed, ongoing hd, pt appears calm and comfortable at this time. iv access patent and flushing well, on hl. pt had enema today and laxative given, per pt he had bm today and somebody flushed it, unable to collect specimen. still need urine and stool to be sent to lab per gi. placed new hat and urinal for specimen collection. safety precautions for fall initiated, call light in reach, will continue monitoring pt.
--- NOTE | 2018-10-26 19:40 | NUR ---
rnnotes: hd completed, 2500ml output removed
[2018-10-26 20:00] VITALS: BP 148/69
--- NOTE | 2018-10-26 20:23 | NUR ---
RN NOTES: PT COMPLAINING OF ABDOMINAL PAIN LEFT LOWER AREA, STATED ITS 02/15, OFFERED ULTRAM BUT PT REFUSING STATED IT DOESNT HELPED WITH HIS PAIN, DESCRIBED CRAMPING PAIN, INFORMED PT CT ABDOMEN SHOWS A LOT OF STOOL IN THE COLON, AND HE WAS GIVEN LAXATIVES AND ENEMA DURING THE DAY, AND EXPECTED TO HAVE THOSE CRAMPING EFFECT OF ALL THOSE MEDICATION. PT COMPLAINING HE'S IN SO MUCH PAIN AND WANTS STRONGER PAIN MEDICINE. ONLY ULTRAM TAB ORDER FOR PRN PAIN MEDS, CONTACTED BULL RIDER/DR HECTOR AWAITING FOR CALLBACK
--- NOTE | 2018-10-26 20:30 | NUR ---
RN NOTES: RECEIVED CALL FROM DR HECTOR, RELAYED PT'S COMPLAINT FOR STRONGER PAIN MEDICATION, PER MD TO CALL/RELAY TO GI FOR RECOMMENDATIONS
--- NOTE | 2018-10-26 20:37 | NUR ---
RN NOTES: CONTACTED GI/[facility] COMMUNITY OUTREACH DIRECTOR FOR DR FISHER, RELAYED PT'S COMPLAIN, AWAITING FOR CALL BACK
--- NOTE | 2018-10-26 21:35 | NUR ---
RN NOTES: CONTACTED DR FISHER, RELAYED ABOUT PT'S COMPLAINED OF PAIN, RELAYED RESULT OF CT ABDOMEN, INFORMED PT ON ULTRAM 50 MG TAB BID, AND THAT PT REFUSING IT, CLAIMED HE HAS 8/10 PAIN ON LEFT LOWER QUADRANT, HAD BOWEL MOVEMENT TODAY AFTER LAXATIVES AND ENEMA. PER MD TO GIVE DILAUDID 1MG IVP Q3HRS PRN FOR 8-10 PAIN AND WILL SEE THE PT TOMORROW AM
[2018-10-26 21:54] VITALS: BP 145/69
--- NOTE | 2018-10-26 21:55 | NUR ---
PRN DILAUDID: PT C/O 02/15 LEFT LOWER QUADRANT PAIN, PRN DILAUDID 1 MG IVP ADMINISTERED TO THE PT AT THIS TIME, VS TAKEN AND RECORDED PRIOR TO GIVING MEDICATION. WILL CONTINUE TO MONITOR AND REASSESS
[2018-10-26] MEDS ORDERED: HYDROMORPHONE 1 MG/1 ML DISP.SYRIN IV PRN (22:00)
--- NOTE | 2018-10-26 22:00 | NUR ---
RN NOTES: NOTED TEMP 100.7, COOLING MEASURES PROVIDED, REMOVED EXCESS THICK BLANKET, ICE PACK PROVIDED, WILL CONTINUE TO MONITOR
--- NOTE | 2018-10-26 22:42 | NUR ---
rn notes: recheck temp 101.2, no prn tylenol ordered, zen bhat video production specialist, awaiting for callback. cooling measures continued
--- NOTE | 2018-10-26 22:59 | NUR ---
rn notes: received call from dr finney, relayed result of temp 100.7 then recheck after 30mins it was 101.2, per md t/o to give TYLENOL 1000 mg TID prn for fever, obtain 2 sets of blood culture and do cxr stat, obtain UA if possible. read back verified and completed.
--- NOTE | 2018-10-26 23:08 | NUR ---
RN NOTES: CONTACTED LAB FOR STAT BLOOD CULTURE, AND CONTACTED XRAY STATED THEY WILL BE COMING SHORTLY AD THEYRE DOING A PATIENT XRAY AT THIS TIME, RELAYED TO ACID CONDITIONING WORKER FAM
[2018-10-26] MEDS: GABAPENTIN 100 MG CAPSULE PO SCH (23:40)
[2018-10-26] MEDS: ACETAMINOPHEN ES 500 MG TABLET PO PRN (23:47)
--- NOTE | 2018-10-26 23:47 | NUR ---
PRN TYLENOL: RECHECK PT'S TEMP 101.0, JUST COMPLETED LAB DRAW FOR STAT BLOOD CULTURE, NOW OKAY TO GIVE TYLENOL, PRN TYLENOL 1000 MG TAB PO ADMINISTERED AT THIS TIME, COOLING MEASURES CONTINUED. CXR COMPLETED .
--- NOTE | 2018-10-26 23:48 | NUR ---
rn notes: pt stated he doesnt feel the urge to urinate, urinal within reach, offered cranberry juice, pt consumed 120ml, will offer to urinate again in 30mins
--- NOTE | 2018-10-27 01:06 | NUR ---
RN NOTES: OFFERED TO URINATE, PT STATED HE DOESN'T FEEL THE NEED TO URINATE AT THIS TIME, REMIND PT URINAL AT BED SIDE, OFFERED WATER.
--- NOTE | 2018-10-27 06:38 | NUR ---
RN CLOSING NOTES: PT IN BED, REMAINS A/O X3 O9N 2L OXYGEN VIA NC RESPIRATION EVEN AND UNLABORED. DENIES ANY N/V.LATEST TEMP 97.9. IV ACCESS REMAINS PATENT AND FLUSHING WELL, ON HL. SHELBY FISTULA REMAINS COVERED WITH DRY DRESSING. BLE OFFLOADED. STILL NEEDS STOOL FOR OB, UA FOR TESTING. VS REMAINS STABLE, NEEDS ATTENDED. SAFETY PRECAUTIONS FOR FALL REMAINS ENGAGED, CALL LGHT IN REACH, WILL ENDORSE TO DAY RN FOR CONTINUITY OF CARE.
[2018-10-27 07:16] LABS: BASOPHILS % (AUTO) 0.6 % (0.0-2.0); HEMATOCRIT 32 % (39-51); HEMOGLOBIN 10.7 g/dL (13.5-17.5); LYMPHOCYTES # (AUTO) 0.3 /CMM (0.8-4.8); MEAN CORPUSCULAR HGB CONC 34 g/dl (31.0-36.0); MEAN CORPUSCULAR VOLUME 91 fL (80-96); MONOCYTES # (AUTO) 0.6 /CMM (0.1-1.30); MONOCYTES % (AUTO) 12.1 % (2.0-12.0); NEUTROPHILS % (AUTO) 81.3 % (43.0-81.0); PLATELET COUNT (AUTO) 141 /CMM (150-450); RED BLOOD CELL COUNT(AUTO) 3.48 MIL/uL (4.5-6.0); WHITE BLOOD COUNT (AUTO) 4.9 K/uL (4.3-11.0)
[2018-10-27 07:37] LABS: CALCIUM, SERUM 8.1 mg/dL (8.5-10.1); MAGNESIUM 2.4 mg/dL (1.8-2.4); PHOSPHORUS 5.4 mg/dL (2.5-4.9); POTASSIUM 4.6 mmol/L (3.5-5.1)
[2018-10-27 07:44] LABS: CREATININE 8.7 mg/dL (0.6-1.3)
--- NOTE | 2018-10-27 07:50 | NUR ---
MS RN OPENING NOTES RECEIVED PT LAYING IN BED RESTING COMFORTABLY. PT IS EASILY AROUSABLE. PT IS A/O X3, AFEBRILE. RESPIRATIONS ARE EVEN AND UNLABORED, NOT IN ANY ACUTE DISTRESS NOTED. PT DENIES ANY PAIN AT THIS TIME, NO C/O SOB, N/V. IV TO RAC INTACT, NO INFILTRATION NOTED. DRESSING KEPT CLEAN AND DRY. SAFETY MEASURES ARE IN PLACE. INSTRUCTED PT TO USE CALL LIGHT WHEN ASSISTANCE IS NEEDED, CALL LIGHT IS LEFT WITHIN REACH. WILL MONITOR THROUGHOUT SHIFT FOR CONTINUITY OF CARE.
[2018-10-27 08:00] VITALS: BP_SYST 137; BP_DIAS 64; BP_DIAS 67
[2018-10-27] MEDS: PYRIDOXINE HCL 50 MG TABLET PO SCH (08:29)
[2018-10-27] MEDS: POLYETHYLENE GLYCOL 3350 17 GM POWD.PACK PO SCH (08:29)
[2018-10-27] MEDS: PANTOPRAZOLE 40 MG TABLET.DR PO SCH (08:30)
[2018-10-27] MEDS: POTASSIUM CHLORIDE 10 MEQ TABLET.SA PO SCH ×2 (08:30→17:11)
[2018-10-27] MEDS: FUROSEMIDE 40 MG TABLET PO SCH (08:30)
[2018-10-27] MEDS: METOLAZONE 2.5 MG TABLET PO SCH (08:30)
[2018-10-27] MEDS: DOCUSATE SODIUM 100 MG CAPSULE PO SCH ×2 (08:30→17:11)
[2018-10-27] MEDS: SEVELAMER CARBONATE 800 MG TABLET PO SCH ×3 (08:30→17:11)
[2018-10-27] MEDS: DULOXETINE HCL 30 MG CAPSULE.DR PO SCH (08:30)
[2018-10-27] MEDS: VIT B CMPLX 3/FA/VIT C/BIOTIN 1 TAB TABLET PO SCH (08:30)
[2018-10-27] MEDS: AMLODIPINE BESYLATE 10 MG TABLET PO SCH (08:30)
[2018-10-27] MEDS: LACTOBACILLUS RHAMNOSUS GG 1 EACH CAP.SPRINK PO SCH ×2 (08:30→17:11)
[2018-10-27] MEDS: LISINOPRIL (20MG) 20 MG TABLET PO SCH (08:31)
[2018-10-27] MEDS: LABETALOL HCL (100MG) 100 MG TABLET PO SCH ×2 (08:31→17:11)
--- NOTE | 2018-10-27 09:17 | NUR ---
MS RN NOTES-- PT WAS SEEN AND EXAMINED BY DR. GORDON.
[2018-10-27] MEDS: PIPERACILLIN /TAZOBACTAM 3.375 G in IV D5W 100 ML IV SCH ×2 (11:21→23:17)
[2018-10-27 16:00] VITALS: BP 162/70
--- NOTE | 2018-10-27 16:00 | NUR ---
MS RN NOTES-- PT NOTED WITH TEMP OF 103 WITH 2 DI[address] NOTIFIED DR. GORDON. TYLENOL GIVEN, COOLING MEASURES PROVIDED, AND BLANKETS OFF. WILL NOTE EFFECTIVENESS.
[2018-10-27] MEDS: ACETAMINOPHEN ES 500 MG TABLET PO PRN (17:11)
[2018-10-27] MEDS: LEVOFLOXACIN 750 MG /D5W 150ML 750 MG in PREMIX 1 EA IV SCH (17:18)
--- NOTE | 2018-10-27 18:07 | NUR ---
MS RN NOTES-- TEMP 100.2. WILL CONTINUE TO PROVIDE COOLING MEASURES.
--- NOTE | 2018-10-27 18:27 | NUR ---
MS RN CLOSING NOTES ALL DUE MEDS GIVEN, NEEDS MET AND RENDERED. PT IS A/O X3, AFEBRILE. RESPIRATIONS ARE EVEN AND UNLABORED, NOT IN ANY ACUTE DISTRESS NOTED. PT DENIES ANY PAIN, NO C/O SOB, N/V. IV SITE TO RAC INTACT, NO INFILTRATION NOTED. DRESSING KEPT CLEAN AND DRY. IV ATB RUNNING AT THIS TIME, NO ASE NOTED. REPOSITIONED PER PROTOCOL. SAFETY MEASURES ARE IN PLACE. REMINDED PT TO USE CALL LIGHT WHEN ASSISTANCE IS NEEDED, CALL LIGHT IS LEFT WITHIN REACH. WILL ENDORSE TO NEXT SHIFT FOR CONTINUITY OF CARE.
--- NOTE | 2018-10-27 19:16 | NUR ---
RN INITIAL NOTES: Received report from Kateryna MORRIS. Pt resting in bed, awake, a/o x3 respiration even and unlabored, iv access patent and flushing well, on hl. SHELBY HD access covered with dressing, c/d/i. Still needs to collect UA and Stool. Per report, has lorna Mcfarland md aware, tylenol given. Safety precautions for fall initiated, call light in reach, will continue monitoring pt.
[2018-10-27 20:00] VITALS: BP 132/62
[2018-10-27 20:44] VITALS: BP 132/62
[2018-10-27] MEDS: GABAPENTIN 100 MG CAPSULE PO SCH (21:45)
--- NOTE | 2018-10-28 02:00 | NUR ---
RN NOTES: Seen pt sleeping comfortably in bed, respiration even and unlabored, appears comfortable, no facial grimace noted, will continue to monitor pt
--- NOTE | 2018-10-28 05:00 | NUR ---
rn notes: check blood sugar of the pt, result is 133
[2018-10-28] MEDS: ACETAMINOPHEN ES 500 MG TABLET PO PRN (05:18)
--- NOTE | 2018-10-28 05:19 | NUR ---
prn tylenol: prn tylenol administered for temp 102.0, cooling measures provided, blankets off. will monitor
--- NOTE | 2018-10-28 05:23 | NUR ---
rnnotes: hd nurse came to do dialysis today
[2018-10-28 06:23] LABS: BASOPHILS % (AUTO) 0.3 % (0.0-2.0); EOSINOPHILS % (AUTO) 0.1 % (0.0-6.0); HEMATOCRIT 31 % (39-51); HEMOGLOBIN 10.6 g/dL (13.5-17.5); LYMPHOCYTES # (AUTO) 0.3 /CMM (0.8-4.8); LYMPHOCYTES % (AUTO) 7.7 % (20.0-44.0); MEAN CORPUSCULAR HGB CONC 34 g/dl (31.0-36.0); MEAN CORPUSCULAR VOLUME 90 fL (80-96); MONOCYTES # (AUTO) 0.7 /CMM (0.1-1.30); MONOCYTES % (AUTO) 15.6 % (2.0-12.0); NEUTROPHILS # (AUTO) 3.4 /CMM (1.8-8.9); NEUTROPHILS % (AUTO) 76.3 % (43.0-81.0); PLATELET COUNT (AUTO) 141 /CMM (150-450); RED BLOOD CELL COUNT(AUTO) 3.45 MIL/uL (4.5-6.0); WHITE BLOOD COUNT (AUTO) 4.5 K/uL (4.3-11.0)
--- NOTE | 2018-10-28 06:57 | NUR ---
rn closing notes: pt remains on 2l oxygen, respiration even and unlabored. iv access remains patent and flushing well, on hl. dressing on chris hd access remains c/d/i, no active bleeding noted. no complaints of abdominal pain at this time, no episode of n/v noted throughout the shift. Ongoing HD. Latest temp 99.5, cooling measure continued. safety precautions for fall remains engaged, call light in reach, will endorse to day rn for continuity of care.
[2018-10-28 07:00] LABS: CALCIUM, SERUM 7.6 mg/dL (8.5-10.1); MAGNESIUM 2.2 mg/dL (1.8-2.4); PHOSPHORUS 4.4 mg/dL (2.5-4.9); POTASSIUM 5.5 mmol/L (3.5-5.1)
--- NOTE | 2018-10-28 07:39 | NUR ---
MS RN OPENING NOTES RECEIVED PT LAYING IN BED RESTING COMFORTABLY. CURRENTLY RECEIVING HD, PER HD NURSE, 3L OUT. SHELBY HD SITE WRAPPED WITH DRY DRESSING, KEPT CLEAN AND DRY. PT IS A/O X3, AFEBRILE. RESPIRATIONS ARE EVEN AND UNLABORED, NOT IN ANY ACUTE DISTRESS NOTED. PT DENIES ANY PAIN AT THIS TIME, NO C/O SOB, N/V. IV TO RAC INTACT, NO INFILTRATION NOTED. DRESSING KEPT CLEAN AND DRY. SAFETY MEASURES ARE IN PLACE. INSTRUCTED PT TO USE CALL LIGHT WHEN ASSISTANCE IS NEEDED, CALL LIGHT IS LEFT WITHIN REACH. WILL MONITOR THROUGHOUT SHIFT FOR CONTINUITY OF CARE.
[2018-10-28 08:08] VITALS: BP 150/68
--- NOTE | 2018-10-28 08:30 | NUR ---
MS RN NOTES-- PT SEEN AND EXAMINED BY DR. GORDON.
--- NOTE | 2018-10-28 09:03 | NUR ---
MS RN NOTES-- POTASSIUM D/C'D PER DR. GORDON.
[2018-10-28] MEDS: PYRIDOXINE HCL 50 MG TABLET PO SCH (09:10)
[2018-10-28] MEDS: SEVELAMER CARBONATE 800 MG TABLET PO SCH ×3 (09:10→17:03)
[2018-10-28] MEDS: LACTOBACILLUS RHAMNOSUS GG 1 EACH CAP.SPRINK PO SCH ×2 (09:11→17:03)
[2018-10-28] MEDS: DULOXETINE HCL 30 MG CAPSULE.DR PO SCH (09:11)
[2018-10-28] MEDS: PANTOPRAZOLE 40 MG TABLET.DR PO SCH (09:11)
[2018-10-28] MEDS: LISINOPRIL (20MG) 20 MG TABLET PO SCH (09:11)
[2018-10-28] MEDS: VIT B CMPLX 3/FA/VIT C/BIOTIN 1 TAB TABLET PO SCH (09:11)
[2018-10-28] MEDS: DOCUSATE SODIUM 100 MG CAPSULE PO SCH ×2 (09:11→17:03)
[2018-10-28] MEDS: POLYETHYLENE GLYCOL 3350 17 GM POWD.PACK PO SCH (09:11)
[2018-10-28] MEDS: AMLODIPINE BESYLATE 10 MG TABLET PO SCH (09:12)
[2018-10-28] MEDS: LABETALOL HCL (100MG) 100 MG TABLET PO SCH ×2 (09:12→17:04)
[2018-10-28] MEDS: PIPERACILLIN /TAZOBACTAM 3.375 G in IV D5W 100 ML IV SCH ×2 (11:32→23:35)
[2018-10-28 15:59] VITALS: BP 145/66
--- NOTE | 2018-10-28 18:26 | NUR ---
MS RN CLOSING NOTES ALL DUE MEDS GIVEN, NEEDS MET AND RENDERED. PT IS A/O X3, AFEBRILE. RESPIRATIONS ARE EVEN AND UNLABORED, NOT IN ANY ACUTE DISTRESS NOTED. PT DENIES ANY PAIN, NO C/O SOB, N/V. IV SITE TO RAC INTACT, NO INFILTRATION NOTED. DRESSING KEPT CLEAN AND DRY. REPOSITIONED PER PROTOCOL. SAFETY MEASURES ARE IN PLACE. REMINDED PT TO USE CALL LIGHT WHEN ASSISTANCE IS NEEDED, CALL LIGHT IS LEFT WITHIN REACH. WILL ENDORSE TO NEXT SHIFT FOR CONTINUITY OF CARE.
--- NOTE | 2018-10-28 19:45 | NUR ---
MS RN NOTE: PATIENT RESTING IN BED, NO ACUTE DISTRESS NOTED. BREATHING EVEN AND UNLABORED, NO SOB NOTED. IV TO RAC IN PLACE. BED LOCKED AND IN LOWEST POSITION, CALL LIGHT IN REACH. WILL CONTINUE TO MONITOR.
[2018-10-28 20:00] VITALS: BP 131/64
[2018-10-28] MEDS: GABAPENTIN 100 MG CAPSULE PO SCH (21:30)
[2018-10-28] MEDS: TRAMADOL HCL 50 MG TABLET PO PRN (21:31)
--- NOTE | 2018-10-28 21:35 | NUR ---
MS RN NOTE: PATIENT COMPLAINS OF ABDOMINAL PAIN, 01/15, ULTRAM 50MG 1 TAB ORAL GIVEN PER MD ORDER. WILL CONTINUE TO MONITOR.
--- NOTE | 2018-10-29 06:20 | NUR ---
MS RN NOTE: PATIENT RESTING IN BED, NO ACUTE DISTRESS NOTED. BREATHING EVEN AND UNLABORED, NO SOB NOTED. IV TO RAC IN PLACE. BED LOCKED AND IN LOWEST POSITION, CALL LIGHT IN REACH. WILL ENDORSE TO DAY NURSE TO CONTINUE WITH PLAN OF CARE.
[2018-10-29 06:33] LABS: BASOPHILS % (AUTO) 0.7 % (0.0-2.0); EOSINOPHILS % (AUTO) 0.1 % (0.0-6.0); HEMATOCRIT 31 % (39-51); HEMOGLOBIN 10.8 g/dL (13.5-17.5); LYMPHOCYTES # (AUTO) 0.4 /CMM (0.8-4.8); LYMPHOCYTES % (AUTO) 12.4 % (20.0-44.0); MEAN CORPUSCULAR HGB CONC 35 g/dl (31.0-36.0); MEAN CORPUSCULAR VOLUME 89 fL (80-96); MONOCYTES # (AUTO) 0.6 /CMM (0.1-1.30); MONOCYTES % (AUTO) 17.8 % (2.0-12.0); NEUTROPHILS # (AUTO) 2.3 /CMM (1.8-8.9); PLATELET COUNT (AUTO) 127 /CMM (150-450); RED BLOOD CELL COUNT(AUTO) 3.53 MIL/uL (4.5-6.0); WHITE BLOOD COUNT (AUTO) 3.3 K/uL (4.3-11.0)
[2018-10-29 07:02] LABS: CALCIUM, SERUM 7.9 mg/dL (8.5-10.1); MAGNESIUM 2.5 mg/dL (1.8-2.4); PHOSPHORUS 4.8 mg/dL (2.5-4.9); POTASSIUM 5.1 mmol/L (3.5-5.1)
--- NOTE | 2018-10-29 07:30 | NUR ---
MS MORRIS AM NOTES RECEIVED PT IN BED, AO X 3, ON RA, NO SOB, NOT IN ANY DISTRESS, C/O 3/10 CHEST PAIN WHEN COUGHING, MINIMAL PHLEGM, BREATH SOUND CTA, SHELBY HD SITE WRAPPED WITH DRY DRESSING, KEPT CLEAN AND DRY. RAC IV FLUSHES WELL SITE CLEAR, CDI DRESSING. SHELBY AV SHUNT, WITH CDI DRESSING, THRILL/BRUIT PRESENT. AMB WITH ASSIST.SAFETY MEASURES IN PLACE. INSTRUCTED PT TO USE CALL LIGHT WHEN ASSISTANCE IS NEEDED AND WHEN WITHIN REACH, WILL CONT TO MONITOR.
[2018-10-29 08:00] VITALS: BP 143/64
[2018-10-29 08:22] VITALS: BP 143/64
[2018-10-29] MEDS: PANTOPRAZOLE 40 MG TABLET.DR PO SCH (08:37)
[2018-10-29] MEDS: VIT B CMPLX 3/FA/VIT C/BIOTIN 1 TAB TABLET PO SCH (08:38)
[2018-10-29] MEDS: PYRIDOXINE HCL 50 MG TABLET PO SCH (08:38)
[2018-10-29] MEDS: SEVELAMER CARBONATE 800 MG TABLET PO SCH ×3 (08:38→17:32)
[2018-10-29] MEDS: DOCUSATE SODIUM 100 MG CAPSULE PO SCH ×2 (08:39→17:31)
[2018-10-29] MEDS: DULOXETINE HCL 30 MG CAPSULE.DR PO SCH (08:39)
[2018-10-29] MEDS: LACTOBACILLUS RHAMNOSUS GG 1 EACH CAP.SPRINK PO SCH ×2 (08:39→17:31)
[2018-10-29] MEDS: LABETALOL HCL (100MG) 100 MG TABLET PO SCH ×2 (08:39→17:32)
[2018-10-29] MEDS: AMLODIPINE BESYLATE 10 MG TABLET PO SCH (08:40)
[2018-10-29] MEDS: LISINOPRIL (20MG) 20 MG TABLET PO SCH (08:40)
[2018-10-29] MEDS: POLYETHYLENE GLYCOL 3350 17 GM POWD.PACK PO SCH (08:40)
--- NOTE | 2018-10-29 09:30 | NUR ---
MS RN NOTES DUE MEDS GIVEN
[2018-10-29] MEDS: PIPERACILLIN /TAZOBACTAM 3.375 G in IV D5W 100 ML IV SCH (11:36)
[2018-10-29 16:00] VITALS: BP 120/56
[2018-10-29 16:18] VITALS: BP 120/56
[2018-10-29] MEDS ORDERED: LEVOFLOXACIN 500 MG /D5W 100ML 500 MG in PREMIX 1 EA IV SCH (18:00)
--- NOTE | 2018-10-29 19:04 | NUR ---
MS RN CLOSING NOTES PT RESTING COMFORTABLY IN BED, AO X 3, ON RA, NO SOB, NOT IN ANY DISTRESS, C/O 3/10 CHEST PAIN WHEN COUGHING, MINIMAL PHLEGM, BREATH SOUND CTA, SHELBY HD SITE WRAPPED WITH DRY DRESSING, KEPT CLEAN AND DRY. RAC IV FLUSHES WELL SITE CLEAR, CDI DRESSING. SHELBY AV SHUNT, WITH CDI DRESSING, THRILL/BRUIT PRESENT. AMB WITH ASSIST.SAFETY MEASURES IN PLACE. INSTRUCTED PT TO USE CALL LIGHT WHEN ASSISTANCE IS NEEDED AND PLACED WITHIN REACH, ALL NEEDS MET. NO OTHER SIGNIFICANT CHANGE IN CONDITION. WILL ENDORSE TO NEXT SHIFR FOR LAURO.
[2018-10-29 20:00] VITALS: BP 124/57
[2018-10-29] MEDS: PIPERACILLIN /TAZOBACTAM 2.25 G in IV D5W 50 ML IV SCH (21:19)
[2018-10-29] MEDS: GABAPENTIN 100 MG CAPSULE PO SCH (21:19)
--- NOTE | 2018-10-30 03:00 | NUR ---
MS RN NOTE: PATIENT SLEEPING IN BED, NO ACUTE DISTRESS NOTED. BREATHING EVEN AND UNLABORED, NO SOB NOTED. BED LOCKED AND IN LOWEST POSITION, CALL LIGHT IN REACH. WILL CONTINUE TO MONITOR.
[2018-10-30] MEDS: PIPERACILLIN /TAZOBACTAM 2.25 G in IV D5W 50 ML IV SCH ×2 (04:28→14:26)
[2018-10-30 07:22] LABS: BASOPHILS % (AUTO) 0.6 % (0.0-2.0); EOSINOPHILS % (AUTO) 0.7 % (0.0-6.0); HEMATOCRIT 33 % (39-51); HEMOGLOBIN 11.2 g/dL (13.5-17.5); LYMPHOCYTES # (AUTO) 0.5 /CMM (0.8-4.8); LYMPHOCYTES % (AUTO) 13.9 % (20.0-44.0); MEAN CORPUSCULAR HGB CONC 34 g/dl (31.0-36.0); MEAN CORPUSCULAR VOLUME 89 fL (80-96); MONOCYTES # (AUTO) 0.5 /CMM (0.1-1.30); MONOCYTES % (AUTO) 13.8 % (2.0-12.0); NEUTROPHILS # (AUTO) 2.8 /CMM (1.8-8.9); PLATELET COUNT (AUTO) 131 /CMM (150-450); RED BLOOD CELL COUNT(AUTO) 3.73 MIL/uL (4.5-6.0); WHITE BLOOD COUNT (AUTO) 3.9 K/uL (4.3-11.0)
[2018-10-30 07:40] LABS: CALCIUM, SERUM 7.8 mg/dL (8.5-10.1); MAGNESIUM 2.7 mg/dL (1.8-2.4); PHOSPHORUS 5.1 mg/dL (2.5-4.9); POTASSIUM 5.1 mmol/L (3.5-5.1)
[2018-10-30 07:45] LABS: CREATININE 10.8 mg/dL (0.6-1.3)
[2018-10-30 08:00] VITALS: BP 145/75
--- NOTE | 2018-10-30 08:15 | NUR ---
MS RN RECEIVED ON BED, AWAKE,ALERT,ORIENTED X4,NOT IN ANY FORM OF DISTRESS, RESPIRATIONS EVEN AND UNLABORED,NO SOB NOTED, LUNGS ARE CLEAR,ABDOMEN SOFT,POSITIVE BOWEL SOUNDS,DENIES PAIN AT THIS TIME,ALL NEEDS ATTENDED.
[2018-10-30] MEDS: SEVELAMER CARBONATE 800 MG TABLET PO SCH ×2 (09:22→14:25)
[2018-10-30] MEDS: VIT B CMPLX 3/FA/VIT C/BIOTIN 1 TAB TABLET PO SCH (09:36)
[2018-10-30] MEDS: LACTOBACILLUS RHAMNOSUS GG 1 EACH CAP.SPRINK PO SCH (09:36)
[2018-10-30] MEDS: PYRIDOXINE HCL 50 MG TABLET PO SCH (09:37)
[2018-10-30] MEDS: DULOXETINE HCL 30 MG CAPSULE.DR PO SCH (09:37)
[2018-10-30] MEDS: DOCUSATE SODIUM 100 MG CAPSULE PO SCH (09:37)
[2018-10-30] MEDS: PANTOPRAZOLE 40 MG TABLET.DR PO SCH (09:37)
[2018-10-30] MEDS: POLYETHYLENE GLYCOL 3350 17 GM POWD.PACK PO SCH (09:38)
--- NOTE | 2018-10-30 09:50 | NUR ---
MS ALEXANDRA BREAKFAST SERVED,DUE MEDS GIVEN VY STUDENTS, B/P MEDS HELD AT THIS TIME, PATIENT WILL HAVE HD TODAY.
[2018-10-30] MEDS ORDERED: GUAIFENESIN/D-METHORPHAN HB 5 ML UDC PO PRN (10:00)
--- NOTE | 2018-10-30 12:13 | NUR ---
MS RN PATIENT HAVING HD AT THIS TIME.
[2018-10-30] MEDS: AMLODIPINE BESYLATE 10 MG TABLET PO SCH (14:25)
[2018-10-30] MEDS: LISINOPRIL (20MG) 20 MG TABLET PO SCH (14:26)
[2018-10-30] MEDS: LABETALOL HCL (100MG) 100 MG TABLET PO SCH (14:26)
[2018-10-30 16:00] VITALS: BP 134/60
--- NOTE | 2018-10-30 16:30 | NUR ---
ms rn patient went home via taxi, discharge instructions given, and understood,all needs attended.
[2018-11-23] MEDS ORDERED: CYANOCOBALAMIN 1,000 MCG/ML VIAL IM SCH (09:00)
== END 2018-10-30 17:00 | disposition home health service (06) | DRG 193 ==
LOC: ER 13:50 → TELE 17:34 → MED 10-25 08:26
PROVIDERS: ADMIT Internal Medicine Nephrology; ATTEND Internal Medicine Nephrology
PROC: 5A1D70Z Performance of Urinary Filtration, Intermittent, Less than 6 Hours Per Day (ICD-10-PCS; principal; 2018-10-26)
PROC: 5A1D70Z Performance of Urinary Filtration, Intermittent, Less than 6 Hours Per Day (ICD-10-PCS; 2018-10-28)
PROC: 5A1D70Z Performance of Urinary Filtration, Intermittent, Less than 6 Hours Per Day (ICD-10-PCS; 2018-10-30)
DX: J15.9 Unspecified bacterial pneumonia (principal); N18.6 End stage renal disease; E44.1 Mild protein-calorie malnutrition; E87.1 Hypo-osmolality and hyponatremia; G95.9 Disease of spinal cord, unspecified; I12.0 Hypertensive chronic kidney disease with stage 5 chronic kidney disease or end stage renal disease; E87.5 Hyperkalemia; F41.9 Anxiety disorder, unspecified; H54.7 Unspecified visual loss; Z98.890 Other specified postprocedural states; Z79.899 Other long term (current) drug therapy; K59.00 Constipation, unspecified; Z99.2 Dependence on renal dialysis; D64.9 Anemia, unspecified; K29.70 Gastritis, unspecified, without bleeding; I70.0 Atherosclerosis of aorta; D69.6 Thrombocytopenia, unspecified; N30.90 Cystitis, unspecified without hematuria; R91.1 Solitary pulmonary nodule
CPT/HCPCS: 36415; 71045-TC; 80048-TC; 80053-TC; 80076-TC; 82728-TC; 82962-TC; 83540-TC; 83605-TC; 83690-TC; 83735-TC; 84100-TC; 84484-TC; 85025-TC; 85730-TC; 87040-TC; 87081-TC; 87340; 90935-TC; A4216; G0378; J1170; J1956; J2270; J2405; J2543; J7040; J7050; J7060; J7509; J8597

== ENCOUNTER 2018-11-01 13:56 | Emergency (ER) | payer MEDICARE, OTHER ==
[~2018-11-01] VITALS: Ht 170.2 cm; Wt 68.0 kg
--- NOTE | 2018-11-01 14:08 | NUR ---
CAME IN FOR FLU LIKE SYMPTOMS, GEN BODY ACHE, CHILLS, COUGH + PHLEGM. TO ER BED 11, HOOKED TO MONITOR, PROVIDED W WARM BLANKET, AWAITING MD WALTERS.
--- NOTE | 2018-11-01 14:18 | NUR ---
DR HAMMONDS AT BEDSIDE
[2018-11-01] MEDS ORDERED: MECLIZINE HCL 25 MG TABLET ONE (14:24)
[2018-11-01] MEDS ORDERED: MECLIZINE HCL 12.5 MG TABLET PO ONE (14:30)
[2018-11-01 14:42] LABS: EOSINOPHILS % (AUTO) 4.7 % (0.0-6.0); HEMATOCRIT 32 % (39-51); HEMOGLOBIN 10.9 g/dL (13.5-17.5); LYMPHOCYTES # (AUTO) 0.4 /CMM (0.8-4.8); LYMPHOCYTES % (AUTO) 15.8 % (20.0-44.0); MEAN CORPUSCULAR HGB CONC 34 g/dl (31.0-36.0); MEAN CORPUSCULAR VOLUME 89 fL (80-96); MONOCYTES # (AUTO) 0.3 /CMM (0.1-1.30); MONOCYTES % (AUTO) 11.3 % (2.0-12.0); NEUTROPHILS # (AUTO) 1.8 /CMM (1.8-8.9); NEUTROPHILS % (AUTO) 67.2 % (43.0-81.0); PLATELET COUNT (AUTO) 156 /CMM (150-450); WHITE BLOOD COUNT (AUTO) 2.6 K/uL (4.3-11.0)
[2018-11-01 14:50] LABS: CALCIUM, SERUM 7.7 mg/dL (8.5-10.1); POTASSIUM 5.3 mmol/L (3.5-5.1)
--- NOTE | 2018-11-01 14:55 | NUR ---
BACK TO ED FROM CT HEAD W/O CONTRAST
--- NOTE | 2018-11-01 16:09 | NUR ---
PT IN BED ASLEEP, COMFORTABLE IN BED, VSS, NAD NOTED. KEPT SAFE AND WARM. WILL CONTINUE TO MONITOR.
--- NOTE | 2018-11-01 17:11 | NUR ---
PT IN BED COMFORTABLE IN BED, HOOKED TO MONITOR, VSS, NAD NOTED. KEPT SAFE AND WARM. WILL CONTINUE TO MONITOR.
[2018-11-01 17:50] VITALS: BP 125/66
--- NOTE | 2018-11-01 17:50 | NUR ---
IV removed. Catheter intact and site benign. Pressure and 4x4 applied to site. No bleeding noted.Patient discharged to home in stable condition. Written and verbal after care instructions given. Patient verbalizes understanding of instruction.
--- NOTE | 2018-11-01 17:55 | NUR ---
PT ASSISTED TO WAITING ROOM VIA WHEELCHAIR. PT AWAITING TO PICK HIM UP.
== END 2018-11-01 17:57 | disposition home or self-care (01) ==
LOC: ER 13:56
DX: B34.9 Viral infection, unspecified (principal); R51 Headache; I12.0 Hypertensive chronic kidney disease with stage 5 chronic kidney disease or end stage renal disease; N18.6 End stage renal disease; G62.9 Polyneuropathy, unspecified; H54.7 Unspecified visual loss; Z99.2 Dependence on renal dialysis; Z98.890 Other specified postprocedural states; Z60.2 Problems related to living alone
CPT/HCPCS: 36415; 70450; 71045; 80048; 85025; 99284; J8597

== ENCOUNTER 2019-11-21 10:35 | Inpatient (IN) | payer MEDICARE, OTHER ==
[~2019-11-21] VITALS: Ht 170.2 cm; Wt 68.0 kg
--- NOTE | 2019-11-21 10:40 | NUR ---
bibra60, from snf, 02 desaturation 85% on 2lpm via NC, s/p d/c'd from other hospital for same reason, last HD yesterday covid 19 positive, bs 121. Patient a/ox2-3, breathing even and unlabored, no sob noted, patient appears to be comfortable. on 6lpm via nc with spo2 100%.
[2019-11-21] MEDS ORDERED: ACETAMINOPHEN ES 500 MG TABLET ONE (10:56)
[2019-11-21] MEDS ORDERED: ACETAMINOPHEN ES 500 MG TABLET PO ONE (11:00)
[2019-11-21] MEDS ORDERED: IV NS 0.9% 500 ML BAG IV ONE (11:00)
[2019-11-21] MEDS ORDERED: MIRT15TA7 PO (11:15)
[2019-11-21] MEDS ORDERED: FOLI0.4T2 PO (11:15)
[2019-11-21] MEDS ORDERED: LIDO30AD10 TP (11:15)
[2019-11-21] MEDS ORDERED: BISA10SU11 RC (11:15)
[2019-11-21] MEDS ORDERED: INSU100V7 SQ (11:15)
[2019-11-21] MEDS ORDERED: SENN-261 PO (11:15)
[2019-11-21] MEDS ORDERED: PANT40TA2 PO (11:15)
[2019-11-21] MEDS ORDERED: CLON1PAT2 TD (11:15)
[2019-11-21] MEDS ORDERED: LEVO50TA8 PO (11:15)
[2019-11-21] MEDS ORDERED: ASCO-352 PO (11:15)
[2019-11-21] MEDS ORDERED: INSU100V27 SQ (11:15)
[2019-11-21] MEDS ORDERED: LACT10SO PO (11:15)
[2019-11-21] MEDS ORDERED: MAGN400O6 PO (11:15)
[2019-11-21] MEDS ORDERED: ACET-868 PO (11:15)
[2019-11-21] MEDS ORDERED: DICL100G16 TP (11:15)
[2019-11-21] MEDS ORDERED: CLON0.1T PO (11:15)
[2019-11-21] MEDS ORDERED: NA P133E RC (11:15)
[2019-11-21] MEDS ORDERED: ATOR40TA PO (11:15)
[2019-11-21] MEDS ORDERED: OMEG-167 PO (11:15)
[2019-11-21] MEDS ORDERED: CLON0.3T PO (11:15)
[2019-11-21] MEDS ORDERED: LOSA100T31 PO (11:15)
[2019-11-21] MEDS ORDERED: FLUO20CA36 PO (11:15)
[2019-11-21] MEDS ORDERED: POLY15DR40 EACHEYE (11:15)
[2019-11-21] MEDS ORDERED: CHLO25TA13 PO (11:15)
[2019-11-21] MEDS ORDERED: ACET-2605 PO (11:15)
--- NOTE | 2019-11-21 11:27 | NUR ---
CALLED NURSING SUP FOR TELE BED.
[2019-11-21 11:28] LABS: ABG BASE EXCESS 3.6 mmol/L; ABG OXYGEN SATURATION 98.9 % (92.0-98.5); ABG PCO2 38.1 mmHg (35.0-45.0); ABG PH 7.474 (7.350-7.450); ABG PO2 307.9 mmHg (75.0-100.0); COHb 0.1 % (0.5-1.5); MetHb 0.3 % (0.0-1.5); O2Hb 98.5 % (94.0-97.0); SITE, ABG Right Radial; VENT MODE, BG NC 5L
[2019-11-21 11:40] LABS: BASOPHILS # (AUTO) 0.1 /CMM (0.0-0.2); BASOPHILS % (AUTO) 1.2 % (0.0-2.0); EOSINOPHILS % (AUTO) 2.1 % (0.0-6.0); HEMATOCRIT 29 % (39-51); HEMOGLOBIN 9.7 g/dL (13.5-17.5); LYMPHOCYTES # (AUTO) 0.8 /CMM (0.8-4.8); LYMPHOCYTES % (AUTO) 13.6 % (20.0-44.0); MEAN CORPUSCULAR HGB CONC 33 g/dl (31.0-36.0); MEAN CORPUSCULAR VOLUME 91 fL (80-96); MONOCYTES # (AUTO) 0.8 /CMM (0.1-1.30); MONOCYTES % (AUTO) 13.2 % (2.0-12.0); NEUTROPHILS # (AUTO) 4.1 /CMM (1.8-8.9); NEUTROPHILS % (AUTO) 69.9 % (43.0-81.0); PLATELET COUNT (AUTO) 198 /CMM (150-450); RED BLOOD CELL COUNT(AUTO) 3.21 MIL/uL (4.5-6.0); WHITE BLOOD COUNT (AUTO) 5.9 K/uL (4.3-11.0)
--- NOTE | 2019-11-21 11:40 | NUR ---
115-1 BED GIVEN Addendum: 11/21/19 at 1140 by HERMAN 112-1 BED GIVEN
[2019-11-21 11:47] LABS: CALCIUM, SERUM 8.2 mg/dL (8.5-10.1); CARBON DIOXIDE 31 mmol/L (21-32); CHLORIDE 98 mmol/L (98-107); GLUCOSE 150 mg/dL (74-106); POTASSIUM 3.8 mmol/L (3.5-5.1); SODIUM SERUM 138 mmol/L (136-145); UREA NITROGEN, BLOOD 37 mg/dL (7-18)
[2019-11-21 11:51] LABS: CREATININE 10.8 mg/dL (0.6-1.3)
[2019-11-21 11:52] LABS: ALANINE AMINOTRANSFERASE 23 U/L (12-78); ALBUMIN 3.4 g/dL (3.4-5.0); ALKALINE PHOSPHATASE 95 U/L (46-116); ASPARTATE AMINOTRANSFERASE 23 U/L (15-37); BILIRUBIN,DIRECT 0.2 mg/dL (0.0-0.2); BILIRUBIN,TOTAL 0.5 mg/dL (0.2-1.0); LIPASE 298 U/L (73-393); TOTAL PROTEIN, SERUM 7.1 g/dL (6.4-8.2)
[2019-11-21 12:00] VITALS: BP 107/63
--- NOTE | 2019-11-21 12:22 | NUR ---
REPORT GIVEN TO TREY Del Angel RN FOR LAURO.
--- NOTE | 2019-11-21 12:39 | NUR ---
PATIENT TRANSFERRED TO ROOM 112-1 VIA ACLS PROTOCOL, IN STABLE CONDITION. ENDORSED TO TREY MORRIS.
[2019-11-21 13:00] VITALS: BP 107/63
[2019-11-21] MEDS ORDERED: Z GUARD REMEDY 2 OZ OINT TP PRN (13:00)
[2019-11-21] MEDS ORDERED: ONDANSETRON HCL/PF 4 MG/2 ML VIAL IVP PRN (13:00)
[2019-11-21] MEDS ORDERED: DEXTROSE 50%-WATER 50 ML DISP.SYRIN IV PRN (13:00)
[2019-11-21] MEDS ORDERED: MAG HYDROX/AL HYDROX/SIMETH 30 ML UDC PO PRN (13:00)
[2019-11-21] MEDS ORDERED: MAGNESIUM HYDROXIDE 30 ML UDC PO PRN (13:00)
[2019-11-21] MEDS ORDERED: BISACODYL SUPP (10 MG) 10 MG/SUPP.RECT SUPP.RECT RC PRN (13:00)
[2019-11-21] MEDS ORDERED: DICLOFENAC TOPICAL 100 GM GEL..GM. TP PRN (13:00)
[2019-11-21] MEDS ORDERED: ACETAMINOPHEN 325 MG TABLET PO PRN (13:00)
--- NOTE | 2019-11-21 13:00 | NUR ---
BRICK HANDLER ADMISIION NOTES ADMITTED PT FROM ER WITH DX OF SOB COVID 19. PT HAS 100%O2 SAT ON O2 AT 6L/MIN VIA NC. DENIES PAIN, SOB OR DISTRESS. ON TELE SB HR 53-54 ON NPO. ALERT AND VERBALLY RESPONSIVE. SLEEPY BUT AROUSABLE. ON NPO .WITH IV H/L TO RT WRIST AND SHELBY AV SHUNT INTACT.. SKIN INTACT. CALL LIGHT PLACED WITHIN REACH.WILL CONTINUE TO MONITOR.
--- NOTE | 2019-11-21 13:05 | NUR ---
PT IS COVID POSITIVE FROM COVID TESTING IN [facility] PT CAME FROM.ON CONTACT/DROPLET ISOLATION PRECAUTIONS.
[2019-11-21] MEDS ORDERED: LOSARTAN POTASSIUM 50 MG TABLET PO SCH (14:00)
[2019-11-21] MEDS: POLYVINYL ALCOHOL 15 ML BOTTLE EACHEYE SCH ×2 (14:12→16:17)
[2019-11-21 16:00] VITALS: BP 99/58
[2019-11-21] MEDS: PANTOPRAZOLE 40 MG TABLET.DR PO SCH (16:17)
[2019-11-21 16:34] LABS: C-REACTIVE PROTEIN 1.8 mg/dL (0.0-0.9)
[2019-11-21] MEDS: SEVELAMER CARBONATE 800 MG TABLET PO SCH (17:48)
[2019-11-21] MEDS: BLOOD SUGAR DIAGNOSTIC 1 EACH STRIP IN SCH ×2 (17:53→21:26)
--- NOTE | 2019-11-21 19:25 | NUR ---
PT HAS BEEN SLEEPING COMFORTABLY BUT AROUSABLE DURING THE SHIFT.NO S/S OF SOB/PAIN OR DISTRESS ON 6L/MIN OF O2 VIA NC.WILL MONITOR.
--- NOTE | 2019-11-21 19:45 | NUR ---
OYSTER GRADER OPENING NOTES RECEIVED PATIENT RESTING IN BED COMFORTABLY; A/OX2-3; DIALYSIS NURSE AT BEDSIDE; PATIENT TOLERATING 6L NC WELL AT 100%; WILL TRY TO TITRATE O2 THROUGHOUT SHIFT TOLERATED; TELE MONITOR ATTACHED READS SINUS JUAN PABLO 58BPM; ISOLATION PRECAUTIONS MAINTAINED; SAFETY PRECAUTIONS IMPLEMENTED; BED LOCKED IN LOW POSITION; SIDE RAILS X2; CALL LIGHT WITHIN REACH; WILL CONTINUE TO MONITOR
[2019-11-21 20:00] VITALS: BP 103/56
[2019-11-21] MEDS: HEPARIN SODIUM, PORCINE 5000 UNITS/1 ML VIAL SQ SCH (21:42)
[2019-11-21] MEDS: INSULIN GLARGINE, 100 UNIT/ML CARTRIDGE SQ SCH (22:00)
[2019-11-21] MEDS ORDERED: ATORVASTATIN 40 MG TABLET PO SCH (22:00)
[2019-11-21] MEDS: SENNOSIDES 8.6 MG TABLET PO SCH (22:00)
[2019-11-21] MEDS: chlorproMAZINE HCL 25 MG TABLET PO SCH (22:00)
[2019-11-21] MEDS: MIRTAZAPINE 15 MG TABLET PO SCH (22:00)
--- NOTE | 2019-11-21 22:01 | NUR ---
REPLANTING MACHINE OPERATOR NOTES PATIENT NPO PER DR. BENNETT UNTIL MORE ALERT; PATIENT A/OX2 WITH MILD CONFUSION, UZBEK SPEAKING; MEDICATIONS NON-ADMINISTERED; CHARGE NURSE AWARE; WILL CONT TO MONITOR Addendum: 11/21/19 at 2230 by LIZZIE BETTENCOURT RN PER DR. HODGE NPO STATUS UNTIL MORE ALERT;
[2019-11-22] VITALS (9 sets, daily range): BP systolic 110–142; BP diastolic 59–75
--- NOTE | 2019-11-22 00:22 | NUR ---
TELE MONITOR PATIENT IN AND OUT OF CONFUSION; WILL CONT TO MONITOR Addendum: 11/22/19 at 0050 by LIZZIE BETTENCOURT RN JOINT CUTTER MACHINE NOTES *
--- NOTE | 2019-11-22 01:08 | NUR ---
SENIOR ESCROW OFFICER NOTES PATIENT SLEEPING IN BED COMFORTABLY; TOLERATING 6L NC WELL; NO SOB NOTED; NO DISTRESS; SPO2 @ 98%; WILL CONT TO MONITOR
--- NOTE | 2019-11-22 02:45 | NUR ---
COMMERCIAL LAWN SPECIALIST NOTES TITRATED OXYGEN FROM 6L TO 5L, PATIENT TOLERATING WELL; SPO2 @ 96%; NO SOB NOTED; PATIENT SLEEPING COMFORTABLY WITH HOB SLIGHTLY ELEVATED; BREATHING EVEN AND UNLABORED; A/OX2, CONFUSED; WILL CONT TO MONITOR
--- NOTE | 2019-11-22 06:35 | NUR ---
PRODUCE TEAM MEMBER CLOSING NOTES PATIENT RESTING IN BED COMFORTABLY, WITH HOB SLIGHTLY ELEVATED; PATIENT BREATHING EVEN AND UNLABORED; NO SOB NOTED; PATIENT TOLERATING 5L NC AT 100%, A/OX2, CONFUSED; NPO STATUS MAINTAINED; NPO STATUS UNTIL PATIENTS LOC INCREASES AND IS MORE AWARE; WILL INFORM ONCOMING NURSE; TELE MONITOR READS SINUS JUAN PABLO - SINUS RHYTHM 73BPM; R WRIST #20 INTACT AND PATENT; FLUSHING WELL, NO S/S OF REDNESS OR INFILTRATION NOTED; SHELBY SHUNT IN PLACE FOR HD, LAST HD 11/20 0 OUTPUT; ALL NEEDS RENDERED; ISOLATION PRECAUTIONS MAINTAINED; SAFETY PRECAUTIONS IMPLEMENTED; BED LOCKED IN LOW POSITION; SIDE RAILS X2; CALL LIGHT WITHIN REACH; WILL ENDORSE LAURO TO ONCOMING NURSE
[2019-11-22] MEDS ORDERED: Linaclotide (Linzess) 145 MCG PO SCH (07:30)
--- NOTE | 2019-11-22 08:00 | NUR ---
RN OPENING NOTE Patient is resting in bed, A/O x2-3. showing no signs of acute distress saturating 100% on 5L NC. Patient has no complaints at this time. Tele monitor SR 60s. IV line in the right wrist #20g is clean and patent. SHELBY HD shunt noted. Blood sugar this AM 87, no insulin coverage per sliding scale. Patient is NPO due to not being alert, patient is more alert at this time and able to tolerate small spoons of apple sauce. Will notify MD if diet can be advanced. Bed is in lowest position, side rails x3 in upright position, call light is within reach, fall safety and aspiration precautions enforced. Will continue with plan of care.
[2019-11-22] MEDS: FLUOXETINE HCL 20 MG CAPSULE PO SCH (08:43)
[2019-11-22] MEDS: BLOOD SUGAR DIAGNOSTIC 1 EACH STRIP IN SCH ×4 (08:43→21:10)
[2019-11-22] MEDS: SEVELAMER CARBONATE 800 MG TABLET PO SCH ×3 (08:43→17:18)
[2019-11-22] MEDS: GABAPENTIN 100 MG CAPSULE PO SCH (08:43)
[2019-11-22] MEDS: ASCORBIC ACID 500 MG TABLET PO SCH (08:43)
[2019-11-22] MEDS: LIDOCAINE 5% (PATCH) 1 EA PATCH TP SCH (08:44)
[2019-11-22] MEDS: LEVOTHYROXINE SODIUM 50 MCG TABLET PO SCH (08:45)
[2019-11-22] MEDS: PANTOPRAZOLE 40 MG TABLET.DR PO SCH ×2 (08:45→16:22)
[2019-11-22] MEDS: HEPARIN SODIUM, PORCINE 5000 UNITS/1 ML VIAL SQ SCH ×2 (08:46→21:07)
[2019-11-22] MEDS: POLYVINYL ALCOHOL 15 ML BOTTLE EACHEYE SCH ×3 (08:47→16:22)
[2019-11-22] MEDS ORDERED: Medication Not On Formulary EA (Omega-3 Fatty Acids/Fish Oil (Fish Oil 1,000 Mg Softgel) PO SCH (09:00)
[2019-11-22] MEDS: INSULIN REGULAR, HUMAN 100 UNIT/ML 3 ML VIAL SQ PRN ×4 (09:12→21:41)
[2019-11-22 09:36] LABS: BASOPHILS # (AUTO) 0.1 /CMM (0.0-0.2); BASOPHILS % (AUTO) 1.3 % (0.0-2.0); EOSINOPHILS % (AUTO) 5.4 % (0.0-6.0); HEMATOCRIT 34 % (39-51); HEMOGLOBIN 11.3 g/dL (13.5-17.5); LYMPHOCYTES # (AUTO) 1.4 /CMM (0.8-4.8); LYMPHOCYTES % (AUTO) 22.1 % (20.0-44.0); MEAN CORPUSCULAR HGB CONC 34 g/dl (31.0-36.0); MEAN CORPUSCULAR VOLUME 91 fL (80-96); MONOCYTES # (AUTO) 0.8 /CMM (0.1-1.30); MONOCYTES % (AUTO) 12.3 % (2.0-12.0); NEUTROPHILS # (AUTO) 3.7 /CMM (1.8-8.9); NEUTROPHILS % (AUTO) 58.9 % (43.0-81.0); PLATELET COUNT (AUTO) 183 /CMM (150-450); RED BLOOD CELL COUNT(AUTO) 3.68 MIL/uL (4.5-6.0); WHITE BLOOD COUNT (AUTO) 6.3 K/uL (4.3-11.0)
[2019-11-22 10:03] LABS: CALCIUM, SERUM 8.8 mg/dL (8.5-10.1); PHOSPHORUS 4.9 mg/dL (2.5-4.9); POTASSIUM 4.2 mmol/L (3.5-5.1)
[2019-11-22 10:06] LABS: CREATININE 8.8 mg/dL (0.6-1.3)
[2019-11-22 10:08] LABS: THYROID STIMULATING HORMONE 0.56 uIU/mL (0.358-3.74)
--- NOTE | 2019-11-22 10:12 | NUR ---
RN NOTE Patient is more alert this AM, asking for breakfast tray. Ok per MD to advance diet for this patient.
--- NOTE | 2019-11-22 11:08 | NUR ---
COVID STATUS PENDING.
--- NOTE | 2019-11-22 17:11 | NUR ---
FF. UP COVID RESULT STILL PENDING PER LAB.
--- NOTE | 2019-11-22 18:21 | NUR ---
RN CLOSING NOTE Patient is resting in bed, A/O x2-3. showing no signs of acute distress saturating 100% on 4L NC. Patient has no complaints at this time. Tele monitor SR 60s. IV line in the right wrist #20g is clean and patent. SHELBY HD shunt noted. All patient needs met, all due medications given, patient kept clean and dry throughout shift. Bed is in lowest position, side rails x3 in upright position, call light is within reach, fall safety and aspiration precautions enforced. Will endorse to shift superintendent caustic cresylate.
--- NOTE | 2019-11-22 20:00 | NUR ---
RN NOTES RECEIVED PT. AWAKE O BED, A/OX2-3, WITH CONFUSION, SR ON TELE MONITOR HR-77, NOT IN DISTRESS, NO PAIN NOTED, CALL LIGHT WITHIN REACH, SIDERAILSUPX2, CONTINUE TO MONITOR
[2019-11-22] MEDS: SENNOSIDES 8.6 MG TABLET PO SCH (21:09)
[2019-11-22] MEDS: MIRTAZAPINE 15 MG TABLET PO SCH (21:10)
[2019-11-22] MEDS: chlorproMAZINE HCL 25 MG TABLET PO SCH (21:20)
[2019-11-22] MEDS: INSULIN GLARGINE, 100 UNIT/ML CARTRIDGE SQ SCH (21:42)
[2019-11-23] VITALS: BP 102/56
[2019-11-23 04:00] VITALS: BP_SYST 101; BP_SYST 98; BP_DIAS 53; BP_DIAS 68
--- NOTE | 2019-11-23 06:27 | NUR ---
RN NOTES SLEEPING BUT AROUSABLE, NOT IN DISTRESS, NO PAIN NOTED, SIDERAILSUPX2, MORNING CARE RENDERED, CALL LIGHT WITHIN REACH, PT. NEEDS ATTENDED
[2019-11-23 08:00] VITALS: BP 134/68
--- NOTE | 2019-11-23 08:00 | NUR ---
RN OPENING NOTES PT RECEIVED LAYING DOWN COMFORTABLY. PT IS A/A/OX2. PT ON CARDIAC MONITORING SHOWING HR IN 70S SR. THERE IS NO S/S OF DISTRESS, UNLABORED BREATHING. VITAL SIGNS STABLE. PT O2 SAT 100% ON RA. PT HAS IV 20 G ON RH. DRESSING INTACT, DRY, AND PATENT. PT HAS SHELBY AV SHUNT. SAFETY MEASURES IMPLEMENTED BED AT LOWEST POSITION AND LOCKED, CALL LIGHT WITHIN REACH, SIDE RAILS UPX2, WILL CONTINUE TO MONITOR FOR ANY ACUTE CHANGES.
[2019-11-23] MEDS: LEVOTHYROXINE SODIUM 50 MCG TABLET PO SCH (08:16)
[2019-11-23] MEDS: ASCORBIC ACID 500 MG TABLET PO SCH (08:16)
[2019-11-23] MEDS: FLUOXETINE HCL 20 MG CAPSULE PO SCH (08:17)
[2019-11-23] MEDS: GABAPENTIN 100 MG CAPSULE PO SCH (08:20)
[2019-11-23] MEDS: HEPARIN SODIUM, PORCINE 5000 UNITS/1 ML VIAL SQ SCH ×2 (08:22→20:52)
[2019-11-23] MEDS: LIDOCAINE 5% (PATCH) 1 EA PATCH TP SCH (08:22)
[2019-11-23] MEDS: POLYVINYL ALCOHOL 15 ML BOTTLE EACHEYE SCH ×3 (08:25→16:46)
[2019-11-23] MEDS: SEVELAMER CARBONATE 800 MG TABLET PO SCH ×3 (08:28→18:13)
[2019-11-23] MEDS: PANTOPRAZOLE 40 MG TABLET.DR PO SCH ×2 (08:28→16:44)
[2019-11-23] MEDS: BLOOD SUGAR DIAGNOSTIC 1 EACH STRIP IN SCH ×4 (09:03→21:31)
[2019-11-23 09:12] LABS: EOSINOPHILS % (AUTO) 5.3 % (0.0-6.0); HEMATOCRIT 27 % (39-51); HEMOGLOBIN 9.1 g/dL (13.5-17.5); LYMPHOCYTES # (AUTO) 0.9 /CMM (0.8-4.8); MEAN CORPUSCULAR HGB CONC 34 g/dl (31.0-36.0); MEAN CORPUSCULAR VOLUME 91 fL (80-96); MONOCYTES # (AUTO) 0.4 /CMM (0.1-1.30); MONOCYTES % (AUTO) 12.3 % (2.0-12.0); NEUTROPHILS # (AUTO) 1.8 /CMM (1.8-8.9); NEUTROPHILS % (AUTO) 53.4 % (43.0-81.0); PLATELET COUNT (AUTO) 182 /CMM (150-450); RED BLOOD CELL COUNT(AUTO) 2.99 MIL/uL (4.5-6.0); WHITE BLOOD COUNT (AUTO) 3.4 K/uL (4.3-11.0)
[2019-11-23] MEDS: INSULIN REGULAR, HUMAN 100 UNIT/ML 3 ML VIAL SQ PRN ×3 (09:18→21:33)
--- NOTE | 2019-11-23 09:30 | NUR ---
RN NOTES SPOKE TO KENNEDY HODGE (RN/ACCESS TECH) REGARDING PT O2 TITERATION. MADE HIM AWARE THAT PT IS OFF THE OXYGEN AND TOLERATING WELL O2 SAT IS 100 ON RA. NO ORDER AT THIS TIME
[2019-11-23 09:33] LABS: CALCIUM, SERUM 7.9 mg/dL (8.5-10.1); POTASSIUM 4.3 mmol/L (3.5-5.1)
[2019-11-23 09:34] LABS: CREATININE 10.1 mg/dL (0.6-1.3)
[2019-11-23 10:07] LABS: D-DIMER 1.76 mg/L(FEU (0.17-0.50)
--- NOTE | 2019-11-23 11:58 | NUR ---
RN NOTES PT CR 10.1 AND BUN 40 SO SPOKE TO [facility] DIALYSIS NURSE, CONFIRMED PT HAS DIALYSIS ORDER FOR TODAY.
[2019-11-23 12:00] VITALS: BP 123/79
[2019-11-23 16:00] VITALS: BP 136/65
[2019-11-23] MEDS ORDERED: FEE PK DOSING 1 MIN EA MC ONE (16:56)
[2019-11-23] MEDS ORDERED: VANCOMYCIN 0.75 GM in IV D5W 250 ML IV ONE (17:00)
[2019-11-23] MEDS ORDERED: VANCOMYCIN 500 MG in IV D5W 100 ML IV PRN (17:00)
--- NOTE | 2019-11-23 18:00 | NUR ---
RN NOTES PT IS RESTING IN THE BED COMFORTABLY. THERE IS NO S/S OF DISTRESS. UNLABORED BREATHING, O2 SAT 94 RA.VSS, SASH REPAIRER SHOWING SR HR 80s. no acute changes during my shift safety measures implemented call light within reach, bed at lowest position, locked, side rails upx2. will endorse to incoming nurse for continuity of care.
[2019-11-23] MEDS: CEFEPIME 1 GM in IV D5W 50 ML IV SCH (18:39)
--- NOTE | 2019-11-23 19:40 | NUR ---
FINISHER TAILOR APPRENTICE NOTES, RECEIVED PATIENT ON BED AWAKE AT THIS TIME, A/O X3 MOSTLY TAJIK SPEAKING, BREATHING EVEN AND UNLABORED, NO SOB/ACUTE DISTRESS NOTED AT THIS TIME, AT RA TOLERATED WELL, WITH OPTIMAL O2 SAT LEVEL, PATIENT IS ON TELEMONITOR NSR HR 80S AT THIS TIME, ALL SAFETY MEASURES IN PLACE, AV SHUNT ON LEFT ARM INTACT, NO BLEEDING OR ABNORMALITY NOTED, PIV LINE RIGHT HAND PATENT AND INTACT, ALL SAFETY MEASURES OBSERVED, BED LOCKED AND IN LOW POSITION, WILL CONTINUE TO MONITOR CLOSELY.
[2019-11-23 20:00] VITALS: BP 147/67
[2019-11-23] MEDS: MUPIROCIN OINT 2% 22 GM TUBE SCH (20:49)
[2019-11-23] MEDS: chlorproMAZINE HCL 25 MG TABLET PO SCH (21:04)
[2019-11-23] MEDS: MIRTAZAPINE 15 MG TABLET PO SCH (21:04)
[2019-11-23] MEDS: SENNOSIDES 8.6 MG TABLET PO SCH (21:04)
[2019-11-23] MEDS: INSULIN GLARGINE, 100 UNIT/ML CARTRIDGE SQ SCH (21:32)
[2019-11-24] VITALS: BP 125/68
[2019-11-24 04:00] VITALS: BP 138/57
[2019-11-24 06:40] LABS: CALCIUM, SERUM 7.7 mg/dL (8.5-10.1); POTASSIUM 4.4 mmol/L (3.5-5.1)
[2019-11-24 06:44] LABS: CREATININE 8.6 mg/dL (0.6-1.3)
--- NOTE | 2019-11-24 07:30 | NUR ---
claims adjuster Notes Patient in bed, not in acute distress. Denies any pain or discomfort. Breakfast taken with good appetite. No s/s of hypo/hyperglycemia noted. Cont on IV ATB, no A/R noted. All needs attended. Safety measures intact. Will cont to monitor
--- NOTE | 2019-11-24 07:39 | NUR ---
RN NOTES, MO SIGNIFICANT CHANGE IN CONDITION DURING NIGHT, NO SOB/ACUTE DISTRESS, ENDORSED TO CHANO MORRIS FOR LAURO.
[2019-11-24 08:00] VITALS: BP 110/68
[2019-11-24] MEDS: LIDOCAINE 5% (PATCH) 1 EA PATCH TP SCH (09:09)
[2019-11-24] MEDS: ASCORBIC ACID 500 MG TABLET PO SCH (09:11)
[2019-11-24] MEDS: HEPARIN SODIUM, PORCINE 5000 UNITS/1 ML VIAL SQ SCH ×2 (09:11→21:40)
[2019-11-24] MEDS: LEVOTHYROXINE SODIUM 50 MCG TABLET PO SCH (09:11)
[2019-11-24] MEDS: FLUOXETINE HCL 20 MG CAPSULE PO SCH (09:12)
[2019-11-24] MEDS: PANTOPRAZOLE 40 MG TABLET.DR PO SCH ×2 (09:12→17:06)
[2019-11-24] MEDS: SEVELAMER CARBONATE 800 MG TABLET PO SCH ×3 (09:12→17:05)
[2019-11-24] MEDS: GABAPENTIN 100 MG CAPSULE PO SCH (09:12)
[2019-11-24] MEDS: POLYVINYL ALCOHOL 15 ML BOTTLE EACHEYE SCH ×3 (09:22→17:05)
[2019-11-24] MEDS: MUPIROCIN OINT 2% 22 GM TUBE SCH ×2 (09:22→21:37)
[2019-11-24] MEDS: INSULIN REGULAR, HUMAN 100 UNIT/ML 3 ML VIAL SQ PRN ×3 (09:27→22:04)
[2019-11-24] MEDS: BLOOD SUGAR DIAGNOSTIC 1 EACH STRIP IN SCH ×4 (09:28→22:01)
[2019-11-24 12:00] VITALS: BP 152/64
[2019-11-24 16:00] VITALS: BP_SYST 163; BP_DIAS 64; BP_DIAS 69
[2019-11-24] MEDS: CEFEPIME 1 GM in IV D5W 50 ML IV SCH (17:05)
--- NOTE | 2019-11-24 19:33 | NUR ---
correctional supervising cook notes Patient in bed, not in acute distress. Denies any pain or discomfort. Assisted to bedside commode to void. All needs attended. No s/s of hypo/hyperglycemia noted. dinner taken with good appetite. Safety measures intact. Endorsed to warehouse worker 2nd shift nurse IVY. MORRIS
--- NOTE | 2019-11-24 19:48 | NUR ---
RN NOTES RECEIVED PATIENT ON BED AWAKE AT THIS TIME, A/O X3 MOSTLY JAPANESE SPEAKING, BREATHING EVEN AND UNLABORED, NO SIGNS OF ACUTE RESPIRATORY OR CARDIAC DISTRESS NOTED AT THIS TIME, AT RA TOLERATED WELL, WITH OPTIMAL O2 SAT LEVEL, PATIENT IS ON TELEMONITOR NSR HR 80S. ALL SAFETY MEASURES IN PLACE, AV SHUNT ON LEFT ARM INTACT, NO BLEEDING OR ABNORMALITY NOTED, PIV LINE RIGHT HAND PATENT AND INTACT, ALL SAFETY MEASURES OBSERVED, BED LOCKED AND IN LOW POSITION, ASPIRATION PRECAUTION EMPHASIZED. WILL CONTINUE TO MONITOR ACCORDINGLY.
[2019-11-24 20:00] VITALS: BP 157/68
[2019-11-24] MEDS: chlorproMAZINE HCL 25 MG TABLET PO SCH (21:37)
[2019-11-24] MEDS: MIRTAZAPINE 15 MG TABLET PO SCH (21:38)
[2019-11-24] MEDS: SENNOSIDES 8.6 MG TABLET PO SCH (21:38)
[2019-11-24] MEDS: INSULIN GLARGINE, 100 UNIT/ML CARTRIDGE SQ SCH (22:03)
[2019-11-25] VITALS (7 sets, daily range): BP systolic 135–157; BP diastolic 68–78
--- NOTE | 2019-11-25 06:46 | NUR ---
RN NOTES ALL NEEDS ATTENDED AND MET, ABLE TO REST AND SLEPT AT INTERVALS, PATIENT ON BED AWAKE AT THIS TIME, A/O X3 MOSTLY NIUEAN SPEAKING, BREATHING EVEN AND UNLABORED, NO SIGNS OF ACUTE RESPIRATORY OR CARDIAC DISTRESS NOTED AT THIS TIME, AT RA TOLERATED WELL, WITH OPTIMAL O2 SAT LEVEL, PATIENT IS ON TELEMONITOR NSR HR 80S. ALL SAFETY MEASURES IN PLACE, AV SHUNT ON LEFT ARM INTACT, NO BLEEDING OR ABNORMALITY NOTED, PIV LINE RIGHT HAND PATENT AND INTACT, ALL SAFETY MEASURES OBSERVED, BED LOCKED AND IN LOW POSITION, ASPIRATION PRECAUTION EMPHASIZED. WILL ENDORSE TO AM NURSE FOR CONTINUITY OF CARE.
[2019-11-25 07:13] LABS: CALCIUM, SERUM 7.9 mg/dL (8.5-10.1); POTASSIUM 5.1 mmol/L (3.5-5.1)
[2019-11-25 07:14] LABS: CREATININE 10.1 mg/dL (0.6-1.3)
--- NOTE | 2019-11-25 07:25 | NUR ---
MS RN RECEIVED ON BED, AWAKE, ALERT,ORIENTED X 3,NOT IN ANY FORM OF DISTRESS, RESPIRATIONS EVEN AND UNLABORED,NO SOB NOTED, HD PATIENT, WILL HAVE IT TODAY.
[2019-11-25] MEDS: BLOOD SUGAR DIAGNOSTIC 1 EACH STRIP IN SCH ×4 (07:30→21:54)
[2019-11-25] MEDS: ASCORBIC ACID 500 MG TABLET PO SCH (08:37)
[2019-11-25] MEDS: SEVELAMER CARBONATE 800 MG TABLET PO SCH ×3 (08:37→18:06)
[2019-11-25] MEDS: FLUOXETINE HCL 20 MG CAPSULE PO SCH (08:37)
[2019-11-25] MEDS: GABAPENTIN 100 MG CAPSULE PO SCH (08:38)
[2019-11-25] MEDS: LIDOCAINE 5% (PATCH) 1 EA PATCH TP SCH (08:40)
[2019-11-25] MEDS: HEPARIN SODIUM, PORCINE 5000 UNITS/1 ML VIAL SQ SCH ×2 (08:42→21:37)
[2019-11-25] MEDS: PANTOPRAZOLE 40 MG TABLET.DR PO SCH ×2 (08:46→16:34)
[2019-11-25] MEDS: LEVOTHYROXINE SODIUM 50 MCG TABLET PO SCH (08:47)
[2019-11-25] MEDS: POLYVINYL ALCOHOL 15 ML BOTTLE EACHEYE SCH ×3 (08:47→16:34)
[2019-11-25] MEDS: MUPIROCIN OINT 2% 22 GM TUBE SCH ×2 (08:48→21:40)
--- NOTE | 2019-11-25 09:20 | NUR ---
MS RN BREAKFAST SERVED,DUE MEDS GIVEN,TOLERATED WELL. REFUSED BS CHECKED, ALREADY ATE PER PATIENT. WILL HAVE IT AT LUNCH TIME INSTEAD.
--- NOTE | 2019-11-25 10:10 | NUR ---
MS RN BEEN WAITING FOR HD
[2019-11-25 11:47] LABS: BASOPHILS % (AUTO) 1.2 % (0.0-2.0); EOSINOPHILS % (AUTO) 6.6 % (0.0-6.0); HEMATOCRIT 26 % (39-51); HEMOGLOBIN 8.9 g/dL (13.5-17.5); LYMPHOCYTES # (AUTO) 0.9 /CMM (0.8-4.8); MEAN CORPUSCULAR HGB CONC 34 g/dl (31.0-36.0); MEAN CORPUSCULAR VOLUME 89 fL (80-96); MONOCYTES # (AUTO) 0.4 /CMM (0.1-1.30); MONOCYTES % (AUTO) 11.5 % (2.0-12.0); NEUTROPHILS # (AUTO) 2.2 /CMM (1.8-8.9); NEUTROPHILS % (AUTO) 56.7 % (43.0-81.0); PLATELET COUNT (AUTO) 164 /CMM (150-450); RED BLOOD CELL COUNT(AUTO) 2.92 MIL/uL (4.5-6.0); WHITE BLOOD COUNT (AUTO) 3.9 K/uL (4.3-11.0)
[2019-11-25] MEDS: INSULIN REGULAR, HUMAN 100 UNIT/ML 3 ML VIAL SQ PRN ×3 (13:47→21:55)
--- NOTE | 2019-11-25 14:00 | NUR ---
MS ALEXANDRA HD DONE W/ 3000ML OUT,TOLERATED WELL.
[2019-11-25] MEDS: CEFEPIME 1 GM in IV D5W 50 ML IV SCH (16:35)
[2019-11-25] MEDS ORDERED: VANCOMYCIN 1 GM in IV D5W 250 ML IV ONE (17:00)
--- NOTE | 2019-11-25 18:56 | NUR ---
MS RN ON BED,NO DISTRESS NOTED,ALL NEEDS ATTENDED.
--- NOTE | 2019-11-25 19:30 | NUR ---
CONSUMER RELATIONS COMPLAINT CLERK OPENING NOTES RECEIVED PT ON BED AWAKE A/O X3 WATCHING TV NO SIGN AND SYMPTOMS OF RESPIRATORY DISTRESS ON RA SPO2 97% ON TELE MONITOR READING SINUS RHYTHM 90'S WITH RHAND IV # 20 PATENT FLUSHING WELL, WITH SHELBY AVF SHUNT NO BLEEDING NOTED, PT ON DROPLET ISOLATION FOR COVID (+) SAFETY MEASURE MAINTAINED BED ON LOWEST POSITION AND LOCKED CALL LIGHT WITHIN REACH WILL CONT TO MONITOR
[2019-11-25] MEDS: SENNOSIDES 8.6 MG TABLET PO SCH (21:36)
[2019-11-25] MEDS: MIRTAZAPINE 15 MG TABLET PO SCH (21:36)
[2019-11-25] MEDS: chlorproMAZINE HCL 25 MG TABLET PO SCH (21:36)
[2019-11-25] MEDS: INSULIN GLARGINE, 100 UNIT/ML CARTRIDGE SQ SCH (21:54)
[2019-11-26] VITALS: BP 155/71
--- NOTE | 2019-11-26 00:30 | NUR ---
RN NOTES, AT 0015, NOTED PATIENT ON MONITOR WITH LEADS OFF, STERILIZATION TECH INFORMED TO CHECK ON THE PATIENT , SHE WAS ALREADY ON HER WAY TO TO CHECK VITAL SIGNS FOR PATIENT, AT THAT TIME ANOTHER NURSE HEAR NOISE ON THE ROOM AND PRIMARY NURSE AND CHARGE NURSE SUMMONED TO THE ROOM, WHEN I WALKED INTO ROOM, THEY HAVE PATIENT STANDING TRYING TO USE THE COMMODE, PATIENT STATED " I SLID DOWN THE BED" UPON HEAD TO TOE ASSESSMENT PATIENT DENIES ANY PAIN, DIZZINESS, OR DISCOMFORT, HES A/O X4 VERBALLY RESPONSIVE, NO CHANGE IN LOC, PATIENT IDENTIFY HIMSELF, DATE, PLACED AND TIME, DENIES HITTING HEAD OR ANY PART OF THE BODY, NO HEMATOMA, BLEEDING, REDNESS OR ABNORMALITY NOTED, BED LOCKED AND IN LOWEST POSITION, NO CLUTTER ON FLOOR, NO LIQUIDS OR ANYTHING NOTED ON THE FLOOR, PATIENT DIDN'T USE THE CALL LIGHT FOR ASSISTANCE, EDUCATION PROVIDED REGARDING CALLING FOR ASSISTANCE, PATIENT VERBALIZED UNDERSTANDING, WILL INFORM MD AND FOLLOW UP WITH ANY NEW ORDER, RN BACKGROUND INVESTIGATOR ROWDY GOMEZ.
--- NOTE | 2019-11-26 00:36 | NUR ---
RN NOTES, INFORMED DR GORDON SENIOR CLINICAL RESEARCH ASSOCIATE ABOUT EPISODE OF PATIENT SLID FROM BED, INFORM MD THAT PATIENT DENIES ANY PAIN OR DISCOMFORT, DENIES HITTING HEAD, AND NO INJURIES NOTED, NO CHANGE IN LOC, PATIENT ALERT AND ORIENTED X4, AND MD REPLIED WITH NO NEW ORDERS, BUT CONTINUE TO MONITOR CLOSELY AND DO NEURO CHECKS PER PROTOCOL, WILL CONTINUE TO MONITOR CLOSELY.
--- NOTE | 2019-11-26 01:00 | NUR ---
CLOTH BLEACHING SUPERVISOR NOTES PT REASSESSMENT: PT ASLEEP AWAKE EASILY DENIES ANY PAIN, NO CHANGES ON MENTAL STATUS NOTED
--- NOTE | 2019-11-26 02:00 | NUR ---
COMMUNITY OUTREACH COORDINATOR NOTES PT REASSESSMENT: PT ASLEEP EASY TO AWAKE NO MENTAL STATUS CHANGES PT DENIES ANY PAIN WILL CONT TO MONITOR
[2019-11-26 04:00] VITALS: BP 147/71
--- NOTE | 2019-11-26 04:00 | NUR ---
RN BABY NOTES PT REASSESSMENT: PT ASLEEP EASY TO AWAKE A/O X3, DENIES ANY PAIN NO CHANGES ON MENTAL STATUS WILL CONT TO MONITOR
[2019-11-26] MEDS ORDERED: VANCOMYCIN 500 MG in IV D5W 100 ML IV PRN (06:00)
--- NOTE | 2019-11-26 06:00 | NUR ---
SCIENCE FACULTY MEMBER NOTES PT REASSESSMENT: PT ASLEEP AWAKE EASILY A/O X3, DENIES PAIN OR NO SIGNIFICANT CHANGES IN CONDITION NOTED WILL CONT TO MONITOR
--- NOTE | 2019-11-26 06:51 | NUR ---
RN CLOSING NOTES PT ON BED ASLEEP AWAKE EASILY, NO SIGN AND SYMPTOMS OF RESPIRATORY DISTRESS SPO2 97% VIA RA, ON TELE MONITOR WITH READING SINUS RHYTHM 80'S NO SIGNIFICANT CHNAGES ON CONDITION NOTED, DROPLET ISOLATION MAINTAINED FOR COVID 19 (+)ALL NEEDS ATTENDED SAFETY MEASURE MAINTAINED BED ON LOWEST POSITION AND LOCKED SIDE RAILS UP X2 CALL LIGHT WITHIN REACH WILL ENDORSED TO AM SHIFT NURSE
[2019-11-26] MEDS: LEVOTHYROXINE SODIUM 50 MCG TABLET PO SCH (07:30)
[2019-11-26] MEDS: BLOOD SUGAR DIAGNOSTIC 1 EACH STRIP IN SCH ×4 (07:30→21:29)
[2019-11-26] MEDS: PANTOPRAZOLE 40 MG TABLET.DR PO SCH ×2 (07:30→16:52)
[2019-11-26 08:00] VITALS: BP 156/77
[2019-11-26] MEDS: SEVELAMER CARBONATE 800 MG TABLET PO SCH ×3 (08:00→18:32)
[2019-11-26 08:12] LABS: CALCIUM, SERUM 8.1 mg/dL (8.5-10.1); POTASSIUM 5.1 mmol/L (3.5-5.1)
[2019-11-26 08:14] LABS: CREATININE 7.9 mg/dL (0.6-1.3)
[2019-11-26 08:33] LABS: BASOPHILS % (AUTO) 1.4 % (0.0-2.0); EOSINOPHILS % (AUTO) 6.1 % (0.0-6.0); HEMATOCRIT 25 % (39-51); HEMOGLOBIN 8.4 g/dL (13.5-17.5); LYMPHOCYTES # (AUTO) 0.8 /CMM (0.8-4.8); LYMPHOCYTES % (AUTO) 21.8 % (20.0-44.0); MEAN CORPUSCULAR HGB CONC 34 g/dl (31.0-36.0); MEAN CORPUSCULAR VOLUME 89 fL (80-96); MONOCYTES # (AUTO) 0.4 /CMM (0.1-1.30); NEUTROPHILS # (AUTO) 2.1 /CMM (1.8-8.9); NEUTROPHILS % (AUTO) 59.7 % (43.0-81.0); PLATELET COUNT (AUTO) 157 /CMM (150-450); RED BLOOD CELL COUNT(AUTO) 2.78 MIL/uL (4.5-6.0); WHITE BLOOD COUNT (AUTO) 3.6 K/uL (4.3-11.0)
[2019-11-26] MEDS: FLUOXETINE HCL 20 MG CAPSULE PO SCH (09:00)
[2019-11-26] MEDS: ASCORBIC ACID 500 MG TABLET PO SCH (09:00)
[2019-11-26] MEDS: GABAPENTIN 100 MG CAPSULE PO SCH (09:00)
[2019-11-26] MEDS: HEPARIN SODIUM, PORCINE 5000 UNITS/1 ML VIAL SQ SCH ×2 (09:00→21:30)
[2019-11-26] MEDS: POLYVINYL ALCOHOL 15 ML BOTTLE EACHEYE SCH ×3 (09:00→17:00)
[2019-11-26] MEDS: LIDOCAINE 5% (PATCH) 1 EA PATCH TP SCH (09:00)
[2019-11-26] MEDS: MUPIROCIN OINT 2% 22 GM TUBE SCH ×2 (09:00→21:00)
[2019-11-26 12:00] VITALS: BP_SYST 147; BP_SYST 163; BP_DIAS 78; BP_DIAS 85
[2019-11-26] MEDS: hydrALAZINE HCL 50 MG TABLET PO SCH ×2 (13:27→17:15)
--- NOTE | 2019-11-26 15:56 | NUR ---
HAS DISCHARGE ORDER PER CAM JOSE A [facility]W AWAITS CLEARANCE FROM SNF. AWARE.
[2019-11-26 16:00] VITALS: BP 152/86
[2019-11-26] MEDS: INSULIN REGULAR, HUMAN 100 UNIT/ML 3 ML VIAL SQ PRN ×2 (17:18→21:32)
--- NOTE | 2019-11-26 18:42 | NUR ---
PATIENT IN BED RESTING. TYLENOL 650MG GIVEN FOR PAIN IN KNEE AND BACK. NO SIGNS AND SYMPTOMS OF SHORTNESS OF BREATH. BED IN LOW POSITION. CALL LIGHT IN REACH. WILL GIVE REPORT TO NIGHT NURSE.
--- NOTE | 2019-11-26 18:48 | NUR ---
patient reswab covid negative paged bob jain awaits response.
--- NOTE | 2019-11-26 19:20 | NUR ---
RN NOTE RECEIVED PATIENT IN BED RESTING, WATCHING TV. A&O X3. BREATHING EVEN AND NON LABORED. NO SOB NOTED AT THIS TIME. O2 SAT 96% ON ROOM AIR. ABLE TO MAKE NEEDS KNOWN, VERBALLY RESPONSIVE. IV SITE ON RIGHT HAND GAUGE 20, CLEAN, DRY, AND PATENT. AV SHUNT ON LEFT ARM. SKIN IS WARM TO TOUCH. IN NO APPARENT DISTRESS NOTED AT THIS TIME. BED IS LOWERED TO LOW POSITION FOR SAFETY. CALL LIGHT IS WITHIN EASY REACH. WILL CONTINUE TO MONITOR.
[2019-11-26 20:00] VITALS: BP 164/74
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
[2019-11-26] MEDS: SENNOSIDES 8.6 MG TABLET PO SCH (21:16)
[2019-11-26] MEDS: MIRTAZAPINE 15 MG TABLET PO SCH (21:17)
[2019-11-26] MEDS: chlorproMAZINE HCL 25 MG TABLET PO SCH (21:17)
[2019-11-26] MEDS: INSULIN GLARGINE, 100 UNIT/ML CARTRIDGE SQ SCH (21:31)
[2019-11-27] VITALS: BP_SYST 136; BP_SYST 146; BP_DIAS 63; BP_DIAS 73
[2019-11-27 04:00] VITALS: BP 170/77
--- NOTE | 2019-11-27 06:33 | NUR ---
RN NOTE PATIENT REMAINED STABLE THROUGHOUT THE NIGHT. NO SIGNIFICANT CHANGES NOTED. ALL DUE MEDS GIVEN AND TOLERATED WELL. PATIENT IS KEPT CLEAN, DRY, AND COMFORTABLE. ALL NEEDS ATTENDED AND MET. WILL ENDORSE TO AM SHIFT RN FOR CONTINUATION OF CARE.
[2019-11-27 07:36] LABS: CALCIUM, SERUM 8.3 mg/dL (8.5-10.1); POTASSIUM 5.6 mmol/L (3.5-5.1)
[2019-11-27 07:52] LABS: CREATININE 9.9 mg/dL (0.6-1.3)
[2019-11-27 08:00] VITALS: BP 140/76
--- NOTE | 2019-11-27 08:00 | NUR ---
digitizer operator Notes Pt is received in bed. IV was flushed well. Si is intact. No edema noted. Fistula is with bruit sound noted.Spoke with Dr Bell ad writer notify that Potassium 5.6 ,Sodium 133, stated.Pt will have dialysis. Alert and oriented *4. Reposition pt. Call light within reach. Safety measure provided. All needs attended. Pain in knee patch was placed. Plan of treatment was discussed.
[2019-11-27] MEDS: SEVELAMER CARBONATE 800 MG TABLET PO SCH ×3 (09:00→18:18)
[2019-11-27] MEDS: FLUOXETINE HCL 20 MG CAPSULE PO SCH (09:00)
[2019-11-27] MEDS: GABAPENTIN 100 MG CAPSULE PO SCH (09:00)
[2019-11-27] MEDS: LEVOTHYROXINE SODIUM 50 MCG TABLET PO SCH (09:00)
[2019-11-27] MEDS: ASCORBIC ACID 500 MG TABLET PO SCH (09:00)
[2019-11-27] MEDS: LIDOCAINE 5% (PATCH) 1 EA PATCH TP SCH (09:01)
[2019-11-27] MEDS: hydrALAZINE HCL 50 MG TABLET PO SCH ×3 (09:01→16:37)
[2019-11-27] MEDS: MUPIROCIN OINT 2% 22 GM TUBE SCH ×2 (09:01→21:49)
[2019-11-27] MEDS: HEPARIN SODIUM, PORCINE 5000 UNITS/1 ML VIAL SQ SCH ×2 (09:02→21:55)
[2019-11-27] MEDS: PANTOPRAZOLE 40 MG TABLET.DR PO SCH ×2 (09:03→16:30)
[2019-11-27] MEDS: INSULIN REGULAR, HUMAN 100 UNIT/ML 3 ML VIAL SQ PRN ×3 (09:16→21:56)
[2019-11-27] MEDS: BLOOD SUGAR DIAGNOSTIC 1 EACH STRIP IN SCH ×4 (09:19→21:55)
[2019-11-27] MEDS: POLYVINYL ALCOHOL 15 ML BOTTLE EACHEYE SCH ×3 (09:20→16:33)
--- NOTE | 2019-11-27 11:30 | NUR ---
television repairer note all needs attended ,will cont to monitor
[2019-11-27 12:00] VITALS: BP 128/80
--- NOTE | 2019-11-27 14:46 | NUR ---
manager telemarketing note hd started as ordered
[2019-11-27 16:00] VITALS: BP 153/82
--- NOTE | 2019-11-27 16:37 | NUR ---
DISTRICT COURT JUSTICE NOTE HOLD BP MEDS ON HD AT THIS TIME
--- NOTE | 2019-11-27 18:11 | NUR ---
television inspector note hd completed 1l of fluids out bp bp 146/80 p85
--- NOTE | 2019-11-27 19:21 | NUR ---
ELECTROMECHANICAL ASSEMBLER: RECEIVED PATIENT Patient in bed, awake, A/O x3. Stable oxygenation on room air. SHELBY AV fistula, covered with gauze, no bleeding. Contact isolation MRSA nares (+). Recent Covid-19 11/22/19 (-) result. Maintained safety.
[2019-11-27 20:10] VITALS: BP 167/86
[2019-11-27] MEDS: SENNOSIDES 8.6 MG TABLET PO SCH (21:58)
[2019-11-27] MEDS: chlorproMAZINE HCL 25 MG TABLET PO SCH (21:59)
[2019-11-27] MEDS: MIRTAZAPINE 15 MG TABLET PO SCH (21:59)
[2019-11-27] MEDS: INSULIN GLARGINE, 100 UNIT/ML CARTRIDGE SQ SCH (22:02)
[2019-11-28 00:43] VITALS: BP 158/71
[2019-11-28 04:15] VITALS: BP 158/79
--- NOTE | 2019-11-28 06:22 | NUR ---
OXIDE FURNACE TENDER: END OF SHIFT REPORT Patient in bed, stable oxygenation on room air. Sinus rhythm in the Tele monitor HR 80's. No acute events overnight, no fever. Awaiting for 2nd Negative Covid-19 swab prior to dc. Bactroban ointment applied to nares, MRSA nares. Contact isolation maintained. Will endorse to oncoming RN.
[2019-11-28] MEDS: INSULIN REGULAR, HUMAN 100 UNIT/ML 3 ML VIAL SQ PRN ×2 (06:40→21:37)
[2019-11-28] MEDS: BLOOD SUGAR DIAGNOSTIC 1 EACH STRIP IN SCH ×4 (06:40→21:39)
--- NOTE | 2019-11-28 06:41 | NUR ---
LOAN OPERATIONS MANAGER: Blood glucose 79mg/dl, no insulin given, parameters not met.
[2019-11-28 08:00] VITALS: BP_SYST 158; BP_SYST 159; BP_DIAS 77; BP_DIAS 79
[2019-11-28] MEDS: PANTOPRAZOLE 40 MG TABLET.DR PO SCH ×2 (08:18→17:29)
[2019-11-28] MEDS: FLUOXETINE HCL 20 MG CAPSULE PO SCH (08:18)
[2019-11-28] MEDS: hydrALAZINE HCL 50 MG TABLET PO SCH ×3 (08:18→17:29)
[2019-11-28] MEDS: GABAPENTIN 100 MG CAPSULE PO SCH (08:18)
[2019-11-28] MEDS: SEVELAMER CARBONATE 800 MG TABLET PO SCH ×3 (08:18→17:28)
[2019-11-28] MEDS: MUPIROCIN OINT 2% 22 GM TUBE SCH ×2 (08:19→21:22)
[2019-11-28] MEDS: ASCORBIC ACID 500 MG TABLET PO SCH (08:19)
[2019-11-28] MEDS: LIDOCAINE 5% (PATCH) 1 EA PATCH TP SCH (08:19)
[2019-11-28] MEDS: POLYVINYL ALCOHOL 15 ML BOTTLE EACHEYE SCH ×3 (08:19→17:16)
[2019-11-28] MEDS: HEPARIN SODIUM, PORCINE 5000 UNITS/1 ML VIAL SQ SCH (08:21)
[2019-11-28] MEDS: LEVOTHYROXINE SODIUM 50 MCG TABLET PO SCH (08:23)
--- NOTE | 2019-11-28 10:16 | NUR ---
primary nurse send reswab specimen for covid to lab.will continue isoaltion pending covid results.
--- NOTE | 2019-11-28 11:16 | NUR ---
rn notes patients blood sugar 133. Refused insulin at this time and he states that it is basically normal. refused x3
[2019-11-28 12:00] VITALS: BP 162/80
[2019-11-28 16:00] VITALS: BP 162/80
--- NOTE | 2019-11-28 18:09 | NUR ---
rn notes patient remains on room air, no sob noted, patient denies pain at this time. Blood pressure high most of the shift. Dr. Collins aware, no new orders ordered. skin remains intact, with SHELBY AV shunt present for HD. DC was withheld due to public health not approving transfer back to [facility]. Will most likely try again tomorrow. COVID 19 swab was re done today with patient testing negative on 11/24. Bed at the lowest setting, call light within reach, side rails up x2.
--- NOTE | 2019-11-28 19:10 | NUR ---
TEA TREE FARMER OPENING NOTES: Pt resting in bed A&0x3 on RA on isolation for R/O Covid and MRSA of nares. No SOB or respiratory distress noted. SR on tele monitor. R hand IV site patent and flushing. Dressing c/d/i. SHELBY AV shunt present. No pain noted at this time. Safety measures in place. Will continue to monitor.
[2019-11-28 20:00] VITALS: BP 166/84
[2019-11-28] MEDS: MIRTAZAPINE 15 MG TABLET PO SCH (21:23)
[2019-11-28] MEDS: SENNOSIDES 8.6 MG TABLET PO SCH (21:23)
[2019-11-28] MEDS: chlorproMAZINE HCL 25 MG TABLET PO SCH (21:23)
--- NOTE | 2019-11-28 21:30 | NUR ---
RN NOTES called lab to verify if they have the covid specimen for today 11/27. Spoke to [facility], cannot find anything on their logbook but will look for actual specimen. Spoke to AM RN Francheska confirmed that patient was swab and another RN took the specimen to the lab. 2144 [facility] called back and confirmed that specimen was sent out but was not signed off on their end. Will not show as pending on serology section or in process in the order history until result comes in or lab fix it in am. Primary RN Kusum made aware
[2019-11-28] MEDS: INSULIN GLARGINE, 100 UNIT/ML CARTRIDGE SQ SCH (21:38)
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
[2019-11-28 23:04] LABS: CALCIUM, SERUM 7.9 mg/dL (8.5-10.1)
[2019-11-28 23:44] LABS: POTASSIUM 6.7 mmol/L (3.5-5.1)
[2019-11-28 23:48] LABS: CREATININE 8.4 mg/dL (0.6-1.3)
--- NOTE | 2019-11-28 23:50 | NUR ---
FRANCI MORRIS NOTE: 2340: Received call from lab. Critical value: K [phone] 1886: Paged Dr. Dickerson. Received orders for Kayexelate 60g and Albuterol breathing tx. Orders noted and carried out. Addendum: 11/29/19 at 0355 by MIRIAM PEDERSON RN 30g Kayexelate
[2019-11-29] VITALS: BP 175/86
[2019-11-29] MEDS ORDERED: SODIUM POLYSTYRENE SULFONATE 15 G/60 ML BOTTLE PO ONE
[2019-11-29] MEDS ORDERED: ALBUTEROL SULFATE INH 18 GM HFA.AER.AD IH PRN
[2019-11-29] MEDS ORDERED: SODIUM POLYSTYRENE SULFONATE 15 G/60 ML BOTTLE ONE (00:35)
[2019-11-29 04:00] VITALS: BP 153/76
--- NOTE | 2019-11-29 06:33 | NUR ---
CAMPAIGN ASSISTANT CLOSING NOTES: Pt resting in bed comfortably. No SOB or respiratory distress noted during shift. Kayexelate administered for pts critical K level. All medications administered as ordered. Safety measures in place. Will endorse to AM nurse for LAURO.
--- NOTE | 2019-11-29 06:34 | NUR ---
RN NOTES TREY DEMPSEY FROM LAB CCALLED FOR COVID NEGATIVE RESULT. MIRIAM, PRIMARY RN AND MRI SUPERVISOR , GABRIELE MADE AWARE. WILL ENDORSE TO RELAY TO MD AND KIESELGUHR REGENERATOR OPERATOR SINCE THIS IS THE SECOND NEGATIVE RESULT; FOR POSSIBLE D/C
[2019-11-29 06:43] LABS: CALCIUM, SERUM 8.2 mg/dL (8.5-10.1); POTASSIUM 5.7 mmol/L (3.5-5.1)
[2019-11-29 06:44] LABS: CREATININE 9.3 mg/dL (0.6-1.3)
[2019-11-29] MEDS: BLOOD SUGAR DIAGNOSTIC 1 EACH STRIP IN SCH ×3 (07:30→17:36)
--- NOTE | 2019-11-29 07:30 | NUR ---
RN OPENING NOTE: RECEIVED PATIENT IN BED THIS MORNING. PATIENT IS ALERT AND ORIENTED X3, RESPONDS APPROPRIATELY. PATIENT SATING WELL ON RA, NO SIGNS OF RESPIRATORY DISTRESS NOTED. NO SIGNS OF ACUTE DISTRESS NOTED. SR 80S ON TELE MONITOR. #22 ON RIGHT HAND, C/D/I, FLUSHES WELL, NO SIGNS OF COMPLICATIONS NOTED. QAV SHUNT ON SHELBY. ISOLATION PRECAUTIONS FOR MRSA OF NARES. SAFETY MEASURES IMPLEMENTED, BED IN LOWEST POSITION, LOCKED, SIDE RAILS UP X2, CALL LIGHT WITHIN REACH. WILL CONTINUE TO MONITOR PATIENT FOR CHANGES.
[2019-11-29 08:00] VITALS: BP 133/72
[2019-11-29] MEDS: ASCORBIC ACID 500 MG TABLET PO SCH (08:17)
[2019-11-29] MEDS: FLUOXETINE HCL 20 MG CAPSULE PO SCH (08:18)
[2019-11-29] MEDS: hydrALAZINE HCL 50 MG TABLET PO SCH ×3 (08:18→16:39)
[2019-11-29] MEDS: LEVOTHYROXINE SODIUM 50 MCG TABLET PO SCH (08:18)
[2019-11-29] MEDS: GABAPENTIN 100 MG CAPSULE PO SCH (08:18)
[2019-11-29] MEDS: SEVELAMER CARBONATE 800 MG TABLET PO SCH ×3 (08:18→17:40)
[2019-11-29] MEDS: PANTOPRAZOLE 40 MG TABLET.DR PO SCH ×2 (08:18→16:38)
[2019-11-29] MEDS: POLYVINYL ALCOHOL 15 ML BOTTLE EACHEYE SCH ×3 (08:19→16:38)
[2019-11-29] MEDS: LIDOCAINE 5% (PATCH) 1 EA PATCH TP SCH (08:19)
[2019-11-29] MEDS: MUPIROCIN OINT 2% 22 GM TUBE SCH (08:20)
[2019-11-29 12:00] VITALS: BP 120/60
[2019-11-29 16:00] VITALS: BP 124/76
--- NOTE | 2019-11-29 16:35 | NUR ---
CONTACTED [facility]. GAVE REPORT TO MIRZA ALEXIS.
[2019-11-29 16:39] VITALS: BP 133/71
--- NOTE | 2019-11-29 17:48 | NUR ---
PATIENT INFORMED ME THAT HE IS MISSING A WALLET, PANTS, MONEY, PHONE, AND CREDIT CARDS. UPON CHECKING PATIENT'S BELONGINGS, NO VALUABLES NOTED BESIDES A YELLOW RING, NECKLACE AND EARRING THAT THE PATIENT IS CURRENTLY WEARING. INFORMED CN AND SPOT WORKER OF SITUATION. INFORMED PATIENT THAT WE DONT HAVE IT AND HE NEEDS TO FOLLOW UP WITH THE INTERMEDIATE. Addendum: 11/29/19 at 1816 by ALFREDO TIRADO RN ALSO INFORMED RAZA, ARTIST SUSPECT Addendum: 11/29/19 at 1817 by ALFREDO TIRADO RN PATIENT JUST INFORMED ME THAT THE [facility]ADY AT [facility] WAS COUNTING THE MONEY PRIOR TO HIM LEAVING TO THE HOSPITAL. I INFORMED PATIENT TO ASK TO SPEAK TO DOCK PUMPER WHEN HE GETS TO THE INTERMEDIATE.
--- NOTE | 2019-11-29 18:20 | NUR ---
PNP NOTE: PATIENT WAS DC TO [facility]. UPON DC ASSESSMENT, VSS, NO SIGNS OF RESPIRATORY DISTRESS NOTED. NO SIGNS OF ACUTE DISTRESS NOTED. DISCHARGE ASSESSMENT COMPLETE. PATIENT EDUCATION COMPLETE. SKIN INTACT. REFER TO OTHER NOTE REGARDING PATIENT'S ISSUE WITH BELONGINGS. SANDBLASTER SUPERVISOR, CN AND INSTRUMENT MECHANIC NOTIFIED. IV LINE REMOVED PER SNF REQUEST. PATIENT LEFT UNIT VIA TRANSPORTATION [facility]IA [facility] AT 1820.
== END 2019-11-29 17:00 | DRG 177 ==
LOC: ER 10:37 → TELE1 12:15
PROVIDERS: ADMIT Nurse Practitioner Acute Care; ATTEND Nurse Practitioner Acute Care
PROC: 5A1D70Z Performance of Urinary Filtration, Intermittent, Less than 6 Hours Per Day (ICD-10-PCS; principal; 2019-11-21)
PROC: 5A1D70Z Performance of Urinary Filtration, Intermittent, Less than 6 Hours Per Day (ICD-10-PCS; 2019-11-29)
DX: U07.1 COVID-19 (principal); J96.01 Acute respiratory failure with hypoxia; N18.6 End stage renal disease; G93.41 Metabolic encephalopathy; J12.89 Other viral pneumonia; I13.2 Hypertensive heart and chronic kidney disease with heart failure and with stage 5 chronic kidney disease, or end stage renal disease; Z99.2 Dependence on renal dialysis; I50.9 Heart failure, unspecified; F03.90 Unspecified dementia, unspecified severity, without behavioral disturbance, psychotic disturbance, mood disturbance, and anxiety; E11.22 Type 2 diabetes mellitus with diabetic chronic kidney disease; E78.5 Hyperlipidemia, unspecified; E11.42 Type 2 diabetes mellitus with diabetic polyneuropathy; K21.9 Gastro-esophageal reflux disease without esophagitis; E03.9 Hypothyroidism, unspecified; F41.9 Anxiety disorder, unspecified; F32.9 Major depressive disorder, single episode, unspecified; F20.9 Schizophrenia, unspecified; D63.1 Anemia in chronic kidney disease; F09 Unspecified mental disorder due to known physiological condition; I95.9 Hypotension, unspecified; Z87.01 Personal history of pneumonia (recurrent); Q78.9 Osteochondrodysplasia, unspecified; Z22.322 Carrier or suspected carrier of Methicillin resistant Staphylococcus aureus; D72.819 Decreased white blood cell count, unspecified
CPT/HCPCS: 36415; 36600; 71045-TC; 80048-TC; 80061-TC; 80076-TC; 80202-TC; 82728-TC; 82962-TC; 83615-TC; 83690-TC; 83735-TC; 84100-TC; 84443-TC; 84484-TC; 85025-TC; 85378-TC; 85396; 86140-TC; 86705; 86706; 87040-TC; 87081-TC; 87340; 90935-TC; 92611-TC; G0378; J0692; J1644; J1815; J3370; J7040; J7060; Q0161; U0003; U0003-CS

== ENCOUNTER 2020-02-24 15:21 | Inpatient (IN) | payer MEDICARE, OTHER ==
[~2020-02-24] VITALS: Ht 170.2 cm; Wt 63.7 kg
[~2020-02-24 15:21] MED LIST changes: +ACET-2605 PO; +ACET-868 PO; +ASCO-352 PO; +ATOR40TA PO; +BISA10SU11 RC; +CHLO25TA13 PO; +CLON0.1T PO; +CLON0.3T PO; +CLON1PAT2 TD; -CYAN10006 IM; -CYCL30DR EACHEYE; +DICL100G16 TP; -DULO60CA45 PO; -ESOM40CA PO; +FLUO20CA36 PO; +FOLI0.4T2 PO; +INSU100V27 SQ; +INSU100V7 SQ; -LABE100T5 PO; +LACT10SO PO; +LEVO50TA8 PO; +LIDO30AD10 TP; -LISI40TA4 PO; +LOSA100T31 PO; +MAGN400O6 PO; -METH4TAB17 PO; -METO10TA3 PO; -METO2.5T2 PO; +MIRT15TA7 PO; +NA P133E RC; -OLOP2.5D5 EACHEYE; +OMEG-167 PO; +PANT40TA2 PO; +POLY15DR40 EACHEYE; -POLY17PO4 PO; -POTA10TA15 PO; -PYRI-6 PO; +SENN-261 PO; -TRAM50TA2 PO
--- NOTE | 2020-02-24 15:30 | NUR ---
[id number], [facility] c/o abdominal pain, nausea x today s/p dialysis, noted hypertension captain fishing vessel. On 02 @ 2lpm via NC. connected to the monitor and pulse ox. kept comfortable, will continue to monitor accordingly.
[2020-02-24 16:19] LABS: BASOPHILS % (AUTO) 0.6 % (0.0-2.0); EOSINOPHILS % (AUTO) 0.1 % (0.0-6.0); HEMATOCRIT 36 % (39-51); HEMOGLOBIN 11.6 g/dL (13.5-17.5); LYMPHOCYTES # (AUTO) 0.5 /CMM (0.8-4.8); LYMPHOCYTES % (AUTO) 8.3 % (20.0-44.0); MEAN CORPUSCULAR HGB CONC 32 g/dl (31.0-36.0); MEAN CORPUSCULAR VOLUME 92 fL (80-96); MONOCYTES # (AUTO) 0.1 /CMM (0.1-1.30); MONOCYTES % (AUTO) 2.1 % (2.0-12.0); NEUTROPHILS # (AUTO) 5.3 /CMM (1.8-8.9); NEUTROPHILS % (AUTO) 88.9 % (43.0-81.0); PLATELET COUNT (AUTO) 406 /CMM (150-450); RED BLOOD CELL COUNT(AUTO) 3.93 MIL/uL (4.5-6.0)
[2020-02-24] MEDS ORDERED: ONDANSETRON HCL/PF 4 MG/2 ML VIAL IV ONE ×2 (16:30→19:00)
[2020-02-24] MEDS ORDERED: MORPHINE SULFATE INJ 2 MG/ML DISP.SYRIN IV ONE (16:30)
[2020-02-24] MEDS ORDERED: ONDANSETRON HCL/PF 4 MG/2 ML VIAL ONE ×2 (16:42→19:05)
[2020-02-24] MEDS ORDERED: MORPHINE SULFATE INJ 4 MG/ML DISP.SYRIN ONE (16:42)
[2020-02-24 16:55] LABS: CALCIUM, SERUM 9.8 mg/dL (8.5-10.1); POTASSIUM 4.8 mmol/L (3.5-5.1)
[2020-02-24 16:58] LABS: CREATININE 7.8 mg/dL (0.6-1.3)
[2020-02-24] MEDS ORDERED: IV NS 0.9% 500 ML BAG IV ONE (17:00)
[2020-02-24 17:03] LABS: ALBUMIN 3.8 g/dL (3.4-5.0); BILIRUBIN,DIRECT 0.2 mg/dL (0.0-0.2); BILIRUBIN,TOTAL 0.7 mg/dL (0.2-1.0); TOTAL PROTEIN, SERUM 9.1 g/dL (6.4-8.2)
--- NOTE | 2020-02-24 17:59 | NUR ---
CALLED [facility], PAGESherrie CAMEJO
[2020-02-24] MEDS ORDERED: CALC667T2 PO (18:54)
[2020-02-24] MEDS ORDERED: MODAFINIL PO (18:54)
[2020-02-24] MEDS ORDERED: DOCU-141 PO (18:54)
--- NOTE | 2020-02-24 19:21 | NUR ---
endorsed to next RN for cristina.
--- NOTE | 2020-02-24 19:37 | NUR ---
CALLED BRITT[facility] MOSS FOR ADMISSION
--- NOTE | 2020-02-24 19:50 | NUR ---
COVID SWAB COLLECTED AND SENT TO LAB
--- NOTE | 2020-02-24 20:14 | NUR ---
URINE COLLECTED AND SENT TO LAB
--- NOTE | 2020-02-24 20:19 | NUR ---
REPORT GIVEN TO HOLLIE
[2020-02-24] MEDS ORDERED: hydrALAZINE HCL IV 20 MG VIAL ONE (20:22)
[2020-02-24 20:25] VITALS: BP 192/81
--- NOTE | 2020-02-24 20:25 | NUR ---
MS RN NOTES PATIENT ARRIVED ON FLOOR AT 2024. PT IS ALERT AND ORIENTED X 1. BREATHING EVEN AND UNLABORED ON 2L NC. SHOWS NO SIGNS OF ACUTE RESPIRATORY DISTRESS, NO ACUTE PAIN. IV ON R WRIST 22G ITS CLEAN DRY AND INTACT. WITH L ARM SHUNT WITH DRESSING INTACT. BELONGINGS CHECKLIST COMPLETED, AND ORIENTED TO ROOM AND UNIT. SAFETY PRECAUTIONS IN PLACE. BED IN LOWEST POSITION, LOCKED, AND CALL LIGHT KEPT WITHIN REACH. WILL CONTINUE TO MONITOR.
[2020-02-24] MEDS ORDERED: hydrALAZINE HCL IV 20 MG VIAL IV PRN (20:30)
--- NOTE | 2020-02-24 20:30 | NUR ---
PT WAS TRANSFERRED TO THE FIRST FLOOR IN STABLE CONDITION.
[2020-02-24 20:31] LABS: BILIRUBIN,URINE Negative (NEGATIVE); BLOOD, URINE Moderate Ery/uL (NEGATIVE); COLOR,URINE Orange (YELLOW); KETONES,URINE Negative (NEGATIVE); LEUKOCYTE ESTERASE ,URINE Negative (NEGATIVE); NITRITE, URINE Negative (NEGATIVE); PH,URINE 7.5 (5.0-8.0); PROTEIN,URINE >=300 mg/dl (NEGATIVE); UGLUCOSE 100 MG/DL mg/dL (NEGATIVE); UROBILINOGEN,URINE 0.2 EU/dL (0.2)
[2020-02-24 20:38] LABS: APPEARANCE,URINE HAZY (CLEAR)
[2020-02-24 20:51] LABS: BACTERIA,URINE None seen /HPF (None Seen); SQUAMOUS EPITHELIAL CELL,UR Few /HPF (None Seen); WBC,URINE 0-2 /HPF (0-3)
[2020-02-24] MEDS ORDERED: MISCELLANEOUS MED 1 EA EA PO PRN (22:00)
[2020-02-24] MEDS ORDERED: DICLOFENAC TOPICAL 100 GM GEL..GM. TP PRN (22:00)
[2020-02-24] MEDS ORDERED: LACTULOSE 10 G/15 ML UDC (PYXIS) PO PRN (22:00)
[2020-02-24] MEDS ORDERED: CLONIDINE HCL 0.1 MG TABLET PO PRN (22:00)
[2020-02-24] MEDS ORDERED: MAGNESIUM HYDROXIDE 30 ML UDC PO PRN ×2 (22:00)
[2020-02-24] MEDS ORDERED: NA PHOS,M-B/NA PHOS,DI-BA 1 EA ENEMA RC PRN (22:00)
[2020-02-24] MEDS ORDERED: MAG HYDROX/AL HYDROX/SIMETH 30 ML UDC PO PRN (22:00)
[2020-02-24] MEDS ORDERED: BISACODYL SUPP (10 MG) 10 MG/SUPP.RECT SUPP.RECT RC PRN (22:00)
[2020-02-24] MEDS ORDERED: Z GUARD REMEDY 2 OZ OINT TP PRN (22:00)
[2020-02-24] MEDS ORDERED: ACETAMINOPHEN 325 MG TABLET PO PRN ×2 (22:00)
[2020-02-24] MEDS: INSULIN GLARGINE, 100 UNIT/ML CARTRIDGE SQ SCH (22:00)
[2020-02-24] MEDS ORDERED: CLONIDINE HCL 0.2MG/24H PTWK 1 EA PATCH TD SCH (22:00)
[2020-02-24] MEDS ORDERED: ZOLPIDEM TARTRATE 5 MG TABLET PO PRN (22:00)
[2020-02-24] MEDS ORDERED: IV NS 0.9% 1,000 ML IV ONE (22:00)
[2020-02-24] MEDS: MIRTAZAPINE 15 MG TABLET PO SCH (22:12)
[2020-02-24] MEDS: ATORVASTATIN 40 MG TABLET PO SCH (22:12)
[2020-02-24] MEDS: ONDANSETRON HCL/PF 4 MG/2 ML VIAL IVP PRN (22:12)
[2020-02-24] MEDS: SENNOSIDES 8.6 MG TABLET PO SCH (22:12)
[2020-02-24] MEDS ORDERED: CLONIDINE HCL 0.1MG/24H PTWK 1 EA PATCH TD ONE ×2 (22:18→22:19)
[2020-02-24] MEDS ORDERED: chlorproMAZINE HCL 25 MG TABLET ONE (22:29)
[2020-02-24] MEDS: chlorproMAZINE HCL 25 MG TABLET PO SCH (22:38)
--- NOTE | 2020-02-25 03:00 | NUR ---
MS RN NOTES PT BP 186/60. GIVEN PRN CLONIDINE PRN. WILL CONTINUE TO MONITOR.
--- NOTE | 2020-02-25 04:00 | NUR ---
MS RN NOTES BP 172/80. PT IS SLEEPING AND NO SYMPTOMS. WILL CONTACT MD FOR ORDER. WILL CONTINUE TO MONITOR.
--- NOTE | 2020-02-25 06:35 | NUR ---
0635 DR. HECTOR IN THE ROOM EXAMINING PATIENT, MADE HIM AWARE OF PATIENT'S PERSISTENT BP IN THE 180S AND HE SAID HE WILL TAKE CARE OF IT.
--- NOTE | 2020-02-25 06:44 | NUR ---
MS RN NOTES PT IS IN BED, ASLEEP, ALERT AND ORIENTED X 1. BREATHING EVEN AND UNLABORED ON 2L NC. SHOWS NO SIGNS OF ACUTE RESPIRATORY DISTRESS, NO ACUTE PAIN. IV ON R WRIST 22G ITS CLEAN DRY AND INTACT. WITH L ARM SHUNT WITH DRESSING INTACT. 1 EPISODE OF EMESIS AT NIGHT. ALL DUE MEDICATIONS GIVEN. SAFETY PRECAUTIONS IN PLACE. BED IN LOWEST POSITION, LOCKED, AND CALL LIGHT KEPT WITHIN REACH. WILL ENDORSE TO ONCOMING NURSE.
[2020-02-25 07:08] LABS: EOSINOPHILS % (AUTO) 0.1 % (0.0-6.0); HEMATOCRIT 33 % (39-51); HEMOGLOBIN 10.6 g/dL (13.5-17.5); LYMPHOCYTES # (AUTO) 0.6 /CMM (0.8-4.8); LYMPHOCYTES % (AUTO) 13.4 % (20.0-44.0); MEAN CORPUSCULAR HGB CONC 32 g/dl (31.0-36.0); MEAN CORPUSCULAR VOLUME 91 fL (80-96); MONOCYTES # (AUTO) 0.5 /CMM (0.1-1.30); MONOCYTES % (AUTO) 12.1 % (2.0-12.0); NEUTROPHILS # (AUTO) 3.3 /CMM (1.8-8.9); NEUTROPHILS % (AUTO) 73.4 % (43.0-81.0); PLATELET COUNT (AUTO) 383 /CMM (150-450); RED BLOOD CELL COUNT(AUTO) 3.62 MIL/uL (4.5-6.0); WHITE BLOOD COUNT (AUTO) 4.5 K/uL (4.3-11.0)
[2020-02-25 07:28] LABS: CALCIUM, SERUM 9.1 mg/dL (8.5-10.1); MAGNESIUM 2.8 mg/dL (1.8-2.4); PHOSPHORUS 6.7 mg/dL (2.5-4.9); POTASSIUM 5.1 mmol/L (3.5-5.1)
[2020-02-25] MEDS ORDERED: Medication Not On Formulary EA (Linaclotide (Linzess) 145 MCG) PO SCH (07:30)
--- NOTE | 2020-02-25 07:30 | NUR ---
RN OPENING NOTES Patient in bed, A/Ox2, on NC @ 2L of O2 saturating well , with no s/sx of distress or SOB noted, SPO2 is 99%, urinal on bed site, denies pain at this moment, cast on arm noted, IV shunt on upper L arm noted,dressing intact, IV on R wrist noted, intact and patent . NPO status noted. safety measures implemented, call light in reach, HOB elevated, bed in lowest position , will cont to monitor
[2020-02-25] MEDS: LEVOTHYROXINE SODIUM 50 MCG TABLET PO SCH (07:40)
[2020-02-25] MEDS: CALCIUM ACETATE 667 MG TABLET PO SCH ×3 (07:40→18:11)
[2020-02-25] MEDS: PANTOPRAZOLE 40 MG TABLET.DR PO SCH ×2 (07:40→15:31)
[2020-02-25 08:00] VITALS: BP 130/70
[2020-02-25] MEDS: LIDOCAINE 5% (PATCH) 1 EA PATCH TP SCH (08:55)
[2020-02-25] MEDS: CLONIDINE HCL 0.1 MG TABLET PO SCH ×2 (08:56→16:24)
[2020-02-25] MEDS: GABAPENTIN 100 MG CAPSULE PO SCH (08:56)
[2020-02-25] MEDS: MINOXIDIL (2.5MG) 2.5 MG TABLET PO SCH (08:57)
[2020-02-25] MEDS: MODAFINIL 100 MG TABLET PO SCH (08:58)
[2020-02-25] MEDS: LOSARTAN POTASSIUM 50 MG TABLET PO SCH (08:58)
[2020-02-25] MEDS: FOLIC ACID 1 MG TABLET PO SCH (08:58)
[2020-02-25] MEDS: ASCORBIC ACID 500 MG TABLET PO SCH (08:58)
[2020-02-25] MEDS: AMLODIPINE BESYLATE 10 MG TABLET PO SCH (08:58)
[2020-02-25] MEDS: VIT B CMPLX 3/FA/VIT C/BIOTIN 1 TAB TABLET PO SCH (08:58)
[2020-02-25] MEDS: DOCUSATE SODIUM 100 MG CAPSULE PO SCH (08:58)
[2020-02-25] MEDS ORDERED: LACTULOSE 10 G/15 ML UDC (PYXIS) PO SCH (09:00)
[2020-02-25] MEDS ORDERED: Medication Not On Formulary EA (Omega-3 Fatty Acids/Fish Oil (Fish Oil 1,000 Mg Softgel) PO SCH (09:00)
[2020-02-25] MEDS ORDERED: DOCUSATE SODIUM 100 MG CAPSULE PO SCH (09:00)
[2020-02-25] MEDS ORDERED: MINOXIDIL (10MG) 10 MG TABLET PO SCH (09:00)
[2020-02-25] MEDS: FLUOXETINE HCL 20 MG CAPSULE PO SCH (09:04)
[2020-02-25] MEDS: SORBITOL SOLUTION 30 ML PO SCH (09:05)
[2020-02-25] MEDS: POLYVINYL ALCOHOL 15 ML BOTTLE EACHEYE SCH ×3 (09:05→16:24)
[2020-02-25] MEDS ORDERED: DEXTROSE 50%-WATER 50 ML DISP.SYRIN IV PRN ×2 (10:30)
[2020-02-25] MEDS ORDERED: INSULIN REGULAR, HUMAN 100 UNIT/ML 3 ML VIAL SQ PRN (10:30)
[2020-02-25 12:00] VITALS: BP 129/62
[2020-02-25] MEDS ORDERED: POLYETHYLENE GLYCOL 3350 17 GM POWD.PACK PO PRN (12:00)
[2020-02-25] MEDS ORDERED: BLOOD SUGAR DIAGNOSTIC 1 EACH STRIP IN SCH (12:00)
[2020-02-25] MEDS: BLOOD SUGAR DIAGNOSTIC 1 EACH STRIP IN SCH ×3 (12:28→23:34)
--- NOTE | 2020-02-25 13:15 | NUR ---
placed and order for DVT pumps
[2020-02-25 16:00] VITALS: BP 142/61
[2020-02-25] MEDS: INSULIN REGULAR, HUMAN 100 UNIT/ML 3 ML VIAL SQ PRN (18:32)
--- NOTE | 2020-02-25 19:30 | NUR ---
RN PM OPENING NOTEREPORT RECIEVED FROM CASSANDRA MORRIS,. PT IN BED IN NO APPARENT DISTRESS. ON 2LNC BRATHING EVEN AND UNLABORED. BED DOWN LOCKED SRX3 PT IN NO APPARENT DISTRESS. HAD HD DONE TODAY AND THEY TOOK 2 LITERS OFF. PT DENIES PAIN. BED DOWN LOCKED SRX3 WILL CONT TO MONITOR.
--- NOTE | 2020-02-25 19:30 | NUR ---
RN CLOSING NOTES Patient remains in bed, tolerating well, all meds given, comfort needs met, no urine or BM noted for the shift, safety measures implemented, call light in reach, will endorse to PM shift RN for LAURO
[2020-02-25 20:00] VITALS: BP 150/64
[2020-02-25] MEDS: INSULIN GLARGINE, 100 UNIT/ML CARTRIDGE SQ SCH (21:38)
[2020-02-25] MEDS: ATORVASTATIN 40 MG TABLET PO SCH (21:43)
[2020-02-25] MEDS: SENNOSIDES 8.6 MG TABLET PO SCH (21:44)
[2020-02-25] MEDS: MIRTAZAPINE 15 MG TABLET PO SCH (21:45)
[2020-02-25] MEDS: chlorproMAZINE HCL 25 MG TABLET PO SCH (21:45)
[2020-02-26 04:00] VITALS: BP 149/68
[2020-02-26] MEDS: BLOOD SUGAR DIAGNOSTIC 1 EACH STRIP IN SCH ×3 (05:56→17:00)
--- NOTE | 2020-02-26 05:58 | NUR ---
RN PM CLOSING NOTE PT IN BED RN. LEFT AVFISTUAL POSITIVE BRUIT AND THRILL PATIENT HAD DIALYSIS TODAY AND HAD 2 LITERS REMOVED. NO URNINE OR BM DURING SHIFT. PATIENT DOEENIES NAUSEEA AND VOMITING. PT NPO. PT DENIES PAIN AT THIS TIME. BED DOWN LOCKED SRX3. ON 2;MC DENIES SOB AT THIS TIME.
[2020-02-26 06:23] LABS: BASOPHILS # (AUTO) 0.1 /CMM (0.0-0.2); BASOPHILS % (AUTO) 1.7 % (0.0-2.0); EOSINOPHILS % (AUTO) 3.8 % (0.0-6.0); HEMATOCRIT 33 % (39-51); HEMOGLOBIN 10.5 g/dL (13.5-17.5); LYMPHOCYTES # (AUTO) 0.8 /CMM (0.8-4.8); LYMPHOCYTES % (AUTO) 25.7 % (20.0-44.0); MEAN CORPUSCULAR HGB CONC 32 g/dl (31.0-36.0); MEAN CORPUSCULAR VOLUME 92 fL (80-96); MONOCYTES # (AUTO) 0.5 /CMM (0.1-1.30); MONOCYTES % (AUTO) 14.4 % (2.0-12.0); NEUTROPHILS # (AUTO) 1.7 /CMM (1.8-8.9); NEUTROPHILS % (AUTO) 54.4 % (43.0-81.0); PLATELET COUNT (AUTO) 355 /CMM (150-450); RED BLOOD CELL COUNT(AUTO) 3.61 MIL/uL (4.5-6.0); WHITE BLOOD COUNT (AUTO) 3.2 K/uL (4.3-11.0)
[2020-02-26 07:07] LABS: CALCIUM, SERUM 9.7 mg/dL (8.5-10.1); MAGNESIUM 2.5 mg/dL (1.8-2.4); PHOSPHORUS 5.1 mg/dL (2.5-4.9); POTASSIUM 4.2 mmol/L (3.5-5.1)
[2020-02-26 07:15] LABS: CREATININE 7.9 mg/dL (0.6-1.3)
[2020-02-26] MEDS: LIDOCAINE 5% (PATCH) 1 EA PATCH TP SCH (08:34)
[2020-02-26] MEDS: CLONIDINE HCL 0.1 MG TABLET PO SCH ×2 (08:36→16:55)
[2020-02-26] MEDS: LOSARTAN POTASSIUM 50 MG TABLET PO SCH (08:36)
[2020-02-26] MEDS: LEVOTHYROXINE SODIUM 50 MCG TABLET PO SCH (08:36)
[2020-02-26] MEDS: PANTOPRAZOLE 40 MG TABLET.DR PO SCH ×2 (08:37→16:52)
[2020-02-26] MEDS: GABAPENTIN 100 MG CAPSULE PO SCH (08:37)
[2020-02-26] MEDS: AMLODIPINE BESYLATE 10 MG TABLET PO SCH (08:37)
[2020-02-26] MEDS: DOCUSATE SODIUM 100 MG CAPSULE PO SCH (08:38)
[2020-02-26] MEDS: CALCIUM ACETATE 667 MG TABLET PO SCH ×3 (08:38→17:00)
[2020-02-26] MEDS: FLUOXETINE HCL 20 MG CAPSULE PO SCH (08:38)
[2020-02-26] MEDS: ASCORBIC ACID 500 MG TABLET PO SCH (08:38)
[2020-02-26] MEDS: MINOXIDIL (2.5MG) 2.5 MG TABLET PO SCH (08:38)
[2020-02-26] MEDS: MODAFINIL 100 MG TABLET PO SCH (08:39)
[2020-02-26] MEDS: FOLIC ACID 1 MG TABLET PO SCH (08:39)
[2020-02-26] MEDS: VIT B CMPLX 3/FA/VIT C/BIOTIN 1 TAB TABLET PO SCH (08:39)
[2020-02-26] MEDS: POLYETHYLENE GLYCOL 3350 17 GM POWD.PACK PO SCH (09:09)
[2020-02-26] MEDS: SORBITOL SOLUTION 30 ML PO SCH (09:09)
[2020-02-26] MEDS: POLYVINYL ALCOHOL 15 ML BOTTLE EACHEYE SCH ×3 (09:10→16:55)
--- NOTE | 2020-02-26 09:44 | NUR ---
RN OPENING NOTES: RECEIVED PT IN BED AWAKE. A/OX3, PT ON 2L O2 99%, NO SIGHNS OF ANY RESPIRTAORY DISTRESS, SOB, OR DIFFICULTY BREATHING, PAIN ON THE LEFT LEG LIDOCIN PATCH APPLIED. IV RIGHT WRIST INTACT, PATENT WELL FLUSHED. PATIENTS NEEDS MET, SAFETY MEASURES MAINTAINED, CALL LIGHT WITHIN REACH WILL CONTINUE TO MONITOR.
--- NOTE | 2020-02-26 10:57 | NUR ---
MS RN NOTES RECEIVED PT VIA GURNEY TRANSFER FROM [facility], REPORT GIVEN BY TAYLOR/RN AT BEDSIDE, PT ARRIVED AT 1045. PT AWAKE, A/O X2-3 WITH NO ACUTE RESPIRATORY DISTRESS. PT REPORTED ON AND OFF BACK PAIN. PT PLACE DON SUPPLEMENTARY OXYGEN 2LPM VIA NC, PT ARRIVED WITH RA AT 88%, PT NOT IN DISTRESS. PT DENIES ANY OTHER CONCERNED OR QUESTIONS. SHELBY AV FISTULA FOR HD ACCESS NOTED. LFA HARD CAST NOTED WELL. VS STABLE AND RECORDED. PIV TO RIGHT WRIST G22, FLUSHED WITH NS, INTACT AND OPERATIONAL. PT KEPT COMFORTABLE IN BED. PT'S BED IN LOWEST, LOCKED POSITION WITH SR X3. WILL CONTINUE PLAN OF CARE.
[2020-02-26 11:06] VITALS: BP 99/46
[2020-02-26] MEDS: HYDROCODONE/APAP 5/325MG TABLET PO PRN ×2 (13:08→21:28)
--- NOTE | 2020-02-26 14:06 | NUR ---
MS RN NOTES PT SEEN AND EVALUATED BY HOSPITALIST/CC, NEW ORDERS WILL BE PLACED BY CC/DNP/ PT KEPT COMFORTABLE. WILL CONTINUE PLAN OF CARE.
[2020-02-26 16:48] VITALS: BP 109/52
--- NOTE | 2020-02-26 18:43 | NUR ---
MS RN NOTES PT REMAINS IN BED, INTERMITTENTLY DOZING OFF, A/O X2-3. PT ON SUPPLEMENTARY OXYGEN AT 2LPM VIA NC, WITH NO ACUTE RESPIRATORY DISTRESS. PT DENIES ANY PAIN OR DISCOMFORT AT THIS TIME. SHELBY AV FISTULA FOR HD ACCESS NOTED. LFA HARD CAST NOTED WELL. PIV TO RIGHT WRIST G22, FLUSHED WITH NS, INTACT AND OPERATIONAL. PT KEPT COMFORTABLE IN BED. ALL NEEDS AND CARE ATTENDED. PT'S BED IN LOWEST, LOCKED POSITION WITH SR X3. CALL LIGHT KEPT WITHIN REACH. WILL ENDORSE TO INCOMING NIGHT NURSE FOR LAURO.
[2020-02-26 20:00] VITALS: BP 123/54
[2020-02-26] MEDS: SENNOSIDES 8.6 MG TABLET PO SCH (21:26)
[2020-02-26] MEDS: ATORVASTATIN 40 MG TABLET PO SCH (21:27)
[2020-02-26] MEDS: MIRTAZAPINE 15 MG TABLET PO SCH (21:28)
--- NOTE | 2020-02-26 21:35 | NUR ---
RN NOTES COMPLAINED OFLEFT ARM PAIN -NORCO 5/325MG PO GIVEN ORDERED, V/S STABLE
[2020-02-26] MEDS: INSULIN GLARGINE, 100 UNIT/ML CARTRIDGE SQ SCH (22:00)
--- NOTE | 2020-02-26 22:00 | NUR ---
RN NOTES NEW IV LINE INSERTED ON THE RIGHT WRIST, BY ICU CHARGE NURSE
--- NOTE | 2020-02-26 22:00 | NUR ---
RN NOTES BLOOD SUGAR-96- LANTUS WAS NOT GIVEN , PT. REFUSED TO EAT
[2020-02-26] MEDS: chlorproMAZINE HCL 25 MG TABLET PO SCH (22:03)
[2020-02-27] MEDS: BLOOD SUGAR DIAGNOSTIC 1 EACH STRIP IN SCH ×4 (00:09→17:32)
[2020-02-27] MEDS ORDERED: CLINDAMYCIN IV RTU IN D5W 900 MG/50 ML PIGGYBACK IV ONE (04:30)
[2020-02-27] MEDS ORDERED: CLINDAMYCIN 900 MG/6 ML VIAL ONE (04:35)
[2020-02-27] MEDS: HYDROCODONE/APAP 5/325MG TABLET PO PRN ×2 (06:29→17:49)
--- NOTE | 2020-02-27 06:42 | NUR ---
RN NOTES COMPLAINED OF LEFT ARM PAIN-NORCO 5/325MG PO GIVEN ORDERED, V/S STABLE, MORNING CARE RENDERED, CALL LIGHT WITHIN REACH, SIDERAILSUPX2, PT. NEEDS ATTENDED
[2020-02-27 07:03] LABS: EOSINOPHILS % (AUTO) 4.6 % (0.0-6.0); HEMATOCRIT 32 % (39-51); HEMOGLOBIN 10.4 g/dL (13.5-17.5); LYMPHOCYTES # (AUTO) 0.8 /CMM (0.8-4.8); LYMPHOCYTES % (AUTO) 17.2 % (20.0-44.0); MEAN CORPUSCULAR HGB CONC 32 g/dl (31.0-36.0); MEAN CORPUSCULAR VOLUME 91 fL (80-96); MONOCYTES # (AUTO) 0.6 /CMM (0.1-1.30); MONOCYTES % (AUTO) 12.2 % (2.0-12.0); PLATELET COUNT (AUTO) 364 /CMM (150-450); RED BLOOD CELL COUNT(AUTO) 3.54 MIL/uL (4.5-6.0); WHITE BLOOD COUNT (AUTO) 4.6 K/uL (4.3-11.0)
--- NOTE | 2020-02-27 07:20 | NUR ---
RN OPENING NOTES RECEIVED PATIENT IN BED RESTING. NOT IN ANY FORM OF DISTRESS. NO SOB. DENIED PAIN OR DISCOMFORT AT THIS TIME. IV ACCESS INTACT AND PATENT. KEPT PATIENT SAFE AND COMFORTABLE. BED IN LOW/LOCKED POSITION, SIDERAILS UPX2,CALL LIGHT IN REACH. WILL CONTINUE TO MONITOR ACCORDINGLY.
[2020-02-27 07:23] LABS: CALCIUM, SERUM 9.4 mg/dL (8.5-10.1); MAGNESIUM 2.5 mg/dL (1.8-2.4); PHOSPHORUS 4.7 mg/dL (2.5-4.9); POTASSIUM 4.5 mmol/L (3.5-5.1)
[2020-02-27 07:39] LABS: CREATININE 9.9 mg/dL (0.6-1.3)
[2020-02-27 08:00] VITALS: BP 122/51
[2020-02-27] MEDS: DOCUSATE SODIUM 100 MG CAPSULE PO SCH (08:23)
[2020-02-27] MEDS: LEVOTHYROXINE SODIUM 50 MCG TABLET PO SCH (08:23)
[2020-02-27] MEDS: PANTOPRAZOLE 40 MG TABLET.DR PO SCH ×2 (08:23→17:41)
[2020-02-27] MEDS: ASCORBIC ACID 500 MG TABLET PO SCH (08:23)
[2020-02-27] MEDS: FLUOXETINE HCL 20 MG CAPSULE PO SCH (08:24)
[2020-02-27] MEDS: VIT B CMPLX 3/FA/VIT C/BIOTIN 1 TAB TABLET PO SCH (08:24)
[2020-02-27] MEDS: FOLIC ACID 1 MG TABLET PO SCH (08:24)
[2020-02-27] MEDS: GABAPENTIN 100 MG CAPSULE PO SCH (08:24)
[2020-02-27] MEDS: CALCIUM ACETATE 667 MG TABLET PO SCH ×3 (08:25→17:31)
[2020-02-27] MEDS: POLYETHYLENE GLYCOL 3350 17 GM POWD.PACK PO SCH (08:25)
[2020-02-27] MEDS: LIDOCAINE 5% (PATCH) 1 EA PATCH TP SCH (08:25)
[2020-02-27] MEDS: SORBITOL SOLUTION 30 ML PO SCH (08:27)
[2020-02-27] MEDS: CLONIDINE HCL 0.1 MG TABLET PO SCH ×2 (09:00→17:39)
[2020-02-27] MEDS: MINOXIDIL (2.5MG) 2.5 MG TABLET PO SCH (09:00)
[2020-02-27] MEDS: LOSARTAN POTASSIUM 50 MG TABLET PO SCH (09:00)
[2020-02-27] MEDS: AMLODIPINE BESYLATE 10 MG TABLET PO SCH (09:00)
[2020-02-27] MEDS: MODAFINIL 100 MG TABLET PO SCH (09:18)
[2020-02-27] MEDS ORDERED: MINERAL OIL 133 ML (PYXIS) 1 EA ENEMA RC ONE (10:30)
[2020-02-27] MEDS: LACTULOSE 10 G/15 ML UDC (PYXIS) PO SCH ×3 (11:48→22:13)
[2020-02-27] MEDS: POLYVINYL ALCOHOL 15 ML BOTTLE EACHEYE SCH ×3 (11:49→17:47)
[2020-02-27] MEDS: ONDANSETRON HCL/PF 4 MG/2 ML VIAL IVP PRN (13:10)
[2020-02-27 16:00] VITALS: BP 139/73
--- NOTE | 2020-02-27 18:55 | NUR ---
RN CLOSING NOTES PATIENT IN STABLE CONDITION. ALL NEEDS ATTENDED AND PROVIDED. ALL DUE MEDS GIVEN ORDERED. KEPT PATIENT SAFE AND COMFORTABLE. BED IN LOW/LOCKED POSITION. SIDERAILS UPX2, CALL LIGHT IN REACH. WILL ENDORSE TO NIGHT NURSE ACCORDINGLY.
--- NOTE | 2020-02-27 19:30 | NUR ---
MS RN OPENING NOTES: RECEIVED PATIENT IN BED, AWAKE A/O X3. NO SOB NOTED. NO COMPLAIN OF PAIN. CALL LIGHT WITHIN REACH. BED ALARM ON. BED IN LOWEST AND LOCKED POSITION. HOB ELEVATED. WITH LEFT UPPER ARM AV SHUNT WITH THRILL AND SENSATION. WITH CAST ON THE LEFT ARM, WITH GOOD CMS. STILL NO BM YET. WITH LEFT LEG SEVERE WEAKNESS. S/P HD TODAY 2L OUT.
[2020-02-27 20:00] VITALS: BP 140/60
--- NOTE | 2020-02-27 20:00 | NUR ---
WITH SCD's ON BOTH LEGS.
[2020-02-27] MEDS: MIRTAZAPINE 15 MG TABLET PO SCH (21:56)
[2020-02-27] MEDS: chlorproMAZINE HCL 25 MG TABLET PO SCH (21:57)
[2020-02-27] MEDS: SENNOSIDES 8.6 MG TABLET PO SCH (21:57)
[2020-02-27] MEDS: ATORVASTATIN 40 MG TABLET PO SCH (21:58)
[2020-02-27] MEDS: INSULIN GLARGINE, 100 UNIT/ML CARTRIDGE SQ SCH (22:12)
[2020-02-28] MEDS: INSULIN REGULAR, HUMAN 100 UNIT/ML 3 ML VIAL SQ PRN
[2020-02-28] MEDS: BLOOD SUGAR DIAGNOSTIC 1 EACH STRIP IN SCH ×4 (00:04→17:17)
[2020-02-28] MEDS: HYDROCODONE/APAP 5/325MG TABLET PO PRN (00:42)
[2020-02-28] MEDS: LACTULOSE 10 G/15 ML UDC (PYXIS) PO SCH ×4 (04:45→21:54)
--- NOTE | 2020-02-28 06:18 | NUR ---
BLOOD SUGAR=58, D50 GIVEN IV.PATIENT AWAKE, TALKING, WITH LITTLE BIT LETHARGIC.
--- NOTE | 2020-02-28 06:33 | NUR ---
BLOOD SUGAR LYITXAKMD=605. PATIENT IS ASLEEP AT THIS TIME.
--- NOTE | 2020-02-28 06:38 | NUR ---
MS RN CLOSING NOTES: PATIENT IN BED, ASLEEP, AROUSABLE. HOB ELEVATED. NO SOB NOTED. CALL LIGHT WITHIN REACH. BED ALARM ON. BED IN LOWEST AND LOCKED POSITION.
--- NOTE | 2020-02-28 07:46 | NUR ---
RN NOTES RECEIVED PATIENT IN BED RESTING COMFORTABLY IN MODERATE HIGH BACK REST. A/O X3. NO SIGNS OF DISTRESS NOTED AT THIS TIME. IV ACCESS ON RIGHT WRIST #22, INTACT AND PATENT. SAFETY MEASURES IN PLACE, BED IN LOW/LOCKED POSITION, SIDE RAILS UPX2,CALL LIGHT IN REACH. WILL CONTINUE TO MONITOR.
[2020-02-28] MEDS: MINOXIDIL (2.5MG) 2.5 MG TABLET PO SCH (09:00)
[2020-02-28] MEDS: CLONIDINE HCL 0.1 MG TABLET PO SCH ×2 (09:00→17:00)
[2020-02-28] MEDS: LOSARTAN POTASSIUM 50 MG TABLET PO SCH (09:00)
[2020-02-28] MEDS: AMLODIPINE BESYLATE 10 MG TABLET PO SCH (09:00)
[2020-02-28] MEDS: GABAPENTIN 100 MG CAPSULE PO SCH (09:06)
[2020-02-28] MEDS: DOCUSATE SODIUM 100 MG CAPSULE PO SCH (09:06)
[2020-02-28] MEDS: CALCIUM ACETATE 667 MG TABLET PO SCH ×3 (09:07→17:26)
[2020-02-28] MEDS: VIT B CMPLX 3/FA/VIT C/BIOTIN 1 TAB TABLET PO SCH (09:07)
[2020-02-28] MEDS: MODAFINIL 100 MG TABLET PO SCH (09:08)
[2020-02-28] MEDS: LEVOTHYROXINE SODIUM 50 MCG TABLET PO SCH (09:08)
[2020-02-28] MEDS: ASCORBIC ACID 500 MG TABLET PO SCH (09:08)
[2020-02-28] MEDS: POLYETHYLENE GLYCOL 3350 17 GM POWD.PACK PO SCH (09:08)
[2020-02-28] MEDS: PANTOPRAZOLE 40 MG TABLET.DR PO SCH ×2 (09:08→17:25)
[2020-02-28] MEDS: FLUOXETINE HCL 20 MG CAPSULE PO SCH (09:08)
[2020-02-28] MEDS: FOLIC ACID 1 MG TABLET PO SCH (09:08)
[2020-02-28] MEDS: SORBITOL SOLUTION 30 ML PO SCH (09:08)
[2020-02-28] MEDS: LIDOCAINE 5% (PATCH) 1 EA PATCH TP SCH (09:09)
[2020-02-28] MEDS: POLYVINYL ALCOHOL 15 ML BOTTLE EACHEYE SCH ×3 (09:09→17:26)
--- NOTE | 2020-02-28 13:00 | NUR ---
RN NOTES REFUSED INSULIN PER SLIDING SCALE, PER PATIENT MY BS GO DOWN REALLY FAST. WILL CONTINUE TO MONITOR.
--- NOTE | 2020-02-28 18:32 | NUR ---
RN NOTES PATIENT IN BED RESTING COMFORTABLY IN MODERATE HIGH BACK REST. A/O X3. NO SIGNS OF DISTRESS NOTED THROUGHOUT THE SHIFT. IV ACCESS ON RIGHT WRIST #22, INTACT AND PATENT. SAFETY MEASURES IN PLACE, BED IN LOW/LOCKED POSITION, SIDE RAILS UPX2,CALL LIGHT IN REACH. WILL ENDORSE TO BOLOGNA LACER NURSE FOR LAURO.
[2020-02-28 20:00] VITALS: BP 156/70
--- NOTE | 2020-02-28 20:00 | NUR ---
RN NOTES RECEIVED PT. AWAKE ON BED, A/OX3, WITH LEFT ARM CAST, CIRCULATION IC GOOD, DENIES ANY PAIN , NO SOB, CALL LIGHT WITHIN REACH, SIDERAILSUPX2, CONTINUE TO MONITOR
[2020-02-28] MEDS: chlorproMAZINE HCL 25 MG TABLET PO SCH (21:51)
[2020-02-28] MEDS: MIRTAZAPINE 15 MG TABLET PO SCH (21:53)
[2020-02-28] MEDS: SENNOSIDES 8.6 MG TABLET PO SCH (21:53)
[2020-02-28] MEDS: ATORVASTATIN 40 MG TABLET PO SCH (21:54)
[2020-02-28] MEDS: INSULIN GLARGINE, 100 UNIT/ML CARTRIDGE SQ SCH (22:00)
--- NOTE | 2020-02-28 22:00 | NUR ---
RN NOTES LANTUS 6 UNITS WAS NOT GIVEN , PT. REFUSED TO HAVE A SNACK, EXPLAINED THE IMPORTANCE OF THE MEDICATION BUT REFUSED TO EAT, PT STATED" HE HAS POOR APPETITE"
[2020-02-29] MEDS: BLOOD SUGAR DIAGNOSTIC 1 EACH STRIP IN SCH ×3 (00:01→11:53)
[2020-02-29] MEDS: LACTULOSE 10 G/15 ML UDC (PYXIS) PO SCH ×3 (04:27→16:30)
--- NOTE | 2020-02-29 06:27 | NUR ---
RN NOTES AWAKE, MORNING CARE RENDERED, CALL LIGHT WITHIN REACH, KATHRINEAILSUPX2, PT. NEEDS ATTENDED
--- NOTE | 2020-02-29 07:20 | NUR ---
MS RN NOTES PATIENT RECEIVED IN BED SLEEPING, EASILY AWAKE, ALERT AND ORIENTED X 3. ON NASAL CANNULA 2 LITERS, WITH NON-LABORED BREATHING, AND NO SIGNS OF SOB NOTED AT THIS TIME. IV ACCESS INTACT AND PATENT. SKIN WARM AND DRY TO TOUCH. PATIENT PRESENTS WITH NO SIGNS OF PAIN OR DISCOMFORT AT THIS TIME. SAFETY PRECAUTIONS IMPLEMENTED WITH BED LOCKED, BED IN THE LOWEST POSITION, BILATERAL SIDE RAILS UP, BED ALARM ON AND CALL LIGHT WITHIN EASY REACH OF THE PATIENT. WILL CONTINUE TO MONITOR PATIENT.
[2020-02-29] MEDS: PANTOPRAZOLE 40 MG TABLET.DR PO SCH ×2 (07:30→16:30)
[2020-02-29] MEDS: LEVOTHYROXINE SODIUM 50 MCG TABLET PO SCH (07:30)
[2020-02-29 08:00] VITALS: BP 126/62
[2020-02-29] MEDS: CALCIUM ACETATE 667 MG TABLET PO SCH ×2 (08:58→12:48)
[2020-02-29 09:00] VITALS: BP 126/62
[2020-02-29] MEDS: SORBITOL SOLUTION 30 ML PO SCH (09:00)
[2020-02-29] MEDS: DOCUSATE SODIUM 100 MG CAPSULE PO SCH (09:00)
[2020-02-29] MEDS: VIT B CMPLX 3/FA/VIT C/BIOTIN 1 TAB TABLET PO SCH (09:00)
[2020-02-29] MEDS: MINOXIDIL (2.5MG) 2.5 MG TABLET PO SCH (09:00)
[2020-02-29] MEDS: CLONIDINE HCL 0.1 MG TABLET PO SCH (09:00)
[2020-02-29] MEDS: ASCORBIC ACID 500 MG TABLET PO SCH (09:00)
[2020-02-29] MEDS: GABAPENTIN 100 MG CAPSULE PO SCH (09:00)
[2020-02-29] MEDS: LIDOCAINE 5% (PATCH) 1 EA PATCH TP SCH (09:00)
[2020-02-29] MEDS: MODAFINIL 100 MG TABLET PO SCH (09:00)
[2020-02-29] MEDS: AMLODIPINE BESYLATE 10 MG TABLET PO SCH (09:00)
[2020-02-29] MEDS: FOLIC ACID 1 MG TABLET PO SCH (09:00)
[2020-02-29] MEDS: LOSARTAN POTASSIUM 50 MG TABLET PO SCH (09:00)
[2020-02-29] MEDS: FLUOXETINE HCL 20 MG CAPSULE PO SCH (09:00)
[2020-02-29] MEDS: POLYVINYL ALCOHOL 15 ML BOTTLE EACHEYE SCH ×2 (09:00→12:49)
[2020-02-29] MEDS: POLYETHYLENE GLYCOL 3350 17 GM POWD.PACK PO SCH (09:00)
--- NOTE | 2020-02-29 09:00 | NUR ---
MS RN NOTES HELD ALL PO MEDICATIONS DUE TO PATIENT SCHEDULE FOR DIALYSIS TODAY WITH ALEXANDRA CAMERON.
--- NOTE | 2020-02-29 10:30 | NUR ---
MS RN NOTES HELD PO MEDICATIONS DUE TO PATIENT SCHEDULE FOR DIALYSIS TODAY WITH ALEXANDRA CAMERON.
--- NOTE | 2020-02-29 12:21 | NUR ---
MS RN NOTES CALLED [facility] FOR REPORT, SPOKE WITH ALEXANDRA MCDANIELS . WILL CONTINUE TO MONITOR PATIENT.
--- NOTE | 2020-02-29 15:00 | NUR ---
RN NOTES HEMODIALYSIS STARTED AT 1500, ROBBY MORRIS AT BEDSIDE. WILL CONTINUE TO MONITOR.
--- NOTE | 2020-02-29 18:06 | NUR ---
DOCTOR OSTEOPATHIC NOTES PATIENT ALERT AND ORIENTED X 3, ON NASAL CANNULA, 2 LITERS WITH NO SIGNS OF RESPIRATORY DISTRESS WITH NON-LABORED BREATHING, AND NO SOB NOTED. PATIENT IV ACCESS REMOVED, CATHETER TIP INTACT AND APPLIED PRESSURE TO SITE. ID BAND REMOVED. PATIENT ACCOUNTED FOR ALL BELONGINGS. EXIT CARE AND EDUCATED PROVIDED TO PATIENT. PATIENT LEFT UNIT WITH VITAL SIGNS STABLE. PATIENT LEFT UNIT VIA GURNEY ACCOMPANIED BY EMT.
== END 2020-02-29 18:06 | DRG 391 ==
LOC: ER 15:21 → MEDSG1 20:07 → MEDSG2 02-26 10:24
PROVIDERS: ADMIT Family Medicine; ATTEND Nurse Practitioner Acute Care
DX: K59.00 Constipation, unspecified (principal); N18.6 End stage renal disease; I13.2 Hypertensive heart and chronic kidney disease with heart failure and with stage 5 chronic kidney disease, or end stage renal disease; I50.32 Chronic diastolic (congestive) heart failure; E87.2 Acidosis; E11.22 Type 2 diabetes mellitus with diabetic chronic kidney disease; F03.90 Unspecified dementia, unspecified severity, without behavioral disturbance, psychotic disturbance, mood disturbance, and anxiety; F20.9 Schizophrenia, unspecified; K21.9 Gastro-esophageal reflux disease without esophagitis; Z79.4 Long term (current) use of insulin; E03.9 Hypothyroidism, unspecified; D63.8 Anemia in other chronic diseases classified elsewhere; Z99.2 Dependence on renal dialysis; F32.9 Major depressive disorder, single episode, unspecified; E11.42 Type 2 diabetes mellitus with diabetic polyneuropathy; E78.5 Hyperlipidemia, unspecified; E21.3 Hyperparathyroidism, unspecified; H54.7 Unspecified visual loss; F41.9 Anxiety disorder, unspecified; K58.9 Irritable bowel syndrome, unspecified; Z79.899 Other long term (current) drug therapy; E11.65 Type 2 diabetes mellitus with hyperglycemia; N21.0 Calculus in bladder; Z96.642 Presence of left artificial hip joint
CPT/HCPCS: 36415; 80048-TC; 80061-TC; 80076-TC; 81000-TC; 82140-TC; 82962-TC; 83690-TC; 83735-TC; 84100-TC; 84484-TC; 85025-TC; 86706; 87081-TC; 87086-TC; 87340; 90935-TC; 97530-TC; G0378; J0360; J1815; J2270; J2405; J3490; J7030; J7040; Q0161; U0003-CS

== ENCOUNTER 2020-04-29 10:01 | Inpatient (IN) | payer MEDICARE, OTHER ==
[~2020-04-29] VITALS: Ht 157.5 cm; Wt 62.6 kg
[~2020-04-29 10:01] MED LIST changes: +AMLO-213 PO; -AMLO10TA7 PO; +CALC667T2 PO; +DOCU-141 PO; -FURO80TA85 PO; +MODAFINIL PO; -SEVE800T8 PO
--- NOTE | 2020-04-29 10:15 | NUR ---
BED 5 PT BIBRA CAME FROM [facility], PER REPORT PT IS ALTERED AND I USUALLY AOX3. VS CHECKED. IV STARTED. BLOOD DRAW STARTED. AWAITING MD WALTERS.
[2020-04-29] MEDS ORDERED: MEROPENEM 1 G in IV NS 0.9% 100 ML IV ONE (10:30)
[2020-04-29] MEDS ORDERED: ACETAMINOPHEN 650 MG/SUPP.RECT RC ONE ×2 (10:30→10:46)
[2020-04-29 10:51] LABS: BASOPHILS # (AUTO) 0.1 /CMM (0.0-0.2); BASOPHILS % (AUTO) 0.4 % (0.0-2.0); EOSINOPHILS % (AUTO) 0.1 % (0.0-6.0); HEMATOCRIT 34 % (39-51); HEMOGLOBIN 11.4 g/dL (13.5-17.5); LYMPHOCYTES # (AUTO) 0.6 /CMM (0.8-4.8); LYMPHOCYTES % (AUTO) 3.7 % (20.0-44.0); MEAN CORPUSCULAR HGB CONC 33 g/dl (31.0-36.0); MEAN CORPUSCULAR VOLUME 90 fL (80-96); MONOCYTES # (AUTO) 1.6 /CMM (0.1-1.30); MONOCYTES % (AUTO) 10.1 % (2.0-12.0); NEUTROPHILS # (AUTO) 13.5 /CMM (1.8-8.9); NEUTROPHILS % (AUTO) 85.7 % (43.0-81.0); PLATELET COUNT (AUTO) 255 /CMM (150-450); WHITE BLOOD COUNT (AUTO) 15.8 K/uL (4.3-11.0)
--- NOTE | 2020-04-29 11:03 | NUR ---
MOVE SHEET SUBMITTED
[2020-04-29 11:05] LABS: ALANINE AMINOTRANSFERASE 9 U/L (12-78); ALBUMIN 2.4 g/dL (3.4-5.0); ALKALINE PHOSPHATASE 116 U/L (46-116); ASPARTATE AMINOTRANSFERASE 15 U/L (15-37); BILIRUBIN,DIRECT 0.3 mg/dL (0.0-0.2); BILIRUBIN,TOTAL 0.8 mg/dL (0.2-1.0); CALCIUM, SERUM 8.9 mg/dL (8.5-10.1); CARBON DIOXIDE 32 mmol/L (21-32); CHLORIDE 94 mmol/L (98-107); CREATININE 4.2 mg/dL (0.6-1.3); GLUCOSE 140 mg/dL (74-106); SODIUM SERUM 135 mmol/L (136-145); TOTAL PROTEIN, SERUM 7.2 g/dL (6.4-8.2); UREA NITROGEN, BLOOD 18 mg/dL (7-18)
[2020-04-29 11:09] LABS: POTASSIUM 2.7 mmol/L (3.5-5.1)
--- NOTE | 2020-04-29 11:13 | NUR ---
GOT BED 204
--- NOTE | 2020-04-29 11:20 | NUR ---
PT OUT FOR CT AND XRAY
--- NOTE | 2020-04-29 11:28 | NUR ---
REPORT GIVEN TO SOPHIE RN AT MS2 PT WILL BE GOING TO 204.
--- NOTE | 2020-04-29 11:30 | NUR ---
PER DR. HAMMONDS, NO NEED TO ADMINISTER K+ SUPPLEMENT B/C HE JUST GOT DIALYZED. Addendum: 04/29/20 at 1144 by DCABANOS ALSO MADE AWARE OF LACTIC ACID LEVELS 5.5
--- NOTE | 2020-04-29 11:35 | NUR ---
PT BACK FROM CT AND XRAY
--- NOTE | 2020-04-29 11:41 | NUR ---
COVID SWAB DONE AND SENT TO LAB
[2020-04-29] MEDS ORDERED: ZINC220C6 PO (11:42)
[2020-04-29] MEDS ORDERED: FURO80TA85 PO (11:42)
[2020-04-29] MEDS ORDERED: FERR325T23 PO (11:42)
[2020-04-29] MEDS ORDERED: AMIN887L PO (11:42)
[2020-04-29] MEDS ORDERED: ONDA4TAB5 PO (11:42)
[2020-04-29] MEDS ORDERED: CALC1TAB30 PO (11:42)
[2020-04-29] MEDS ORDERED: ACET325T53 PO (11:42)
--- NOTE | 2020-04-29 11:43 | NUR ---
URINE COLLECTED SENT TO LAB
[2020-04-29 12:05] LABS: BILIRUBIN,URINE Negative (NEGATIVE); BLOOD, URINE Moderate Ery/uL (NEGATIVE); COLOR,URINE Yellow (YELLOW); LEUKOCYTE ESTERASE ,URINE Negative (NEGATIVE); NITRITE, URINE Negative (NEGATIVE); PH,URINE 8.5 (5.0-8.0); PROTEIN,URINE >=300 mg/dl (NEGATIVE); UGLUCOSE 100 MG/DL mg/dL (NEGATIVE); UROBILINOGEN,URINE 0.2 EU/dL (0.2)
[2020-04-29 12:06] LABS: BACTERIA,URINE Few /HPF (None Seen); HYALINE CASTS, URINE Few /LPF (None Seen); SQUAMOUS EPITHELIAL CELL,UR None Seen /HPF (None Seen); WBC,URINE 0-2 /HPF (0-3)
[2020-04-29] MEDS ORDERED: ACETAMINOPHEN 325 MG TABLET PO PRN ×2 (14:30)
[2020-04-29] MEDS ORDERED: DEXTROSE 50%-WATER 50 ML DISP.SYRIN IV PRN (14:30)
[2020-04-29] MEDS ORDERED: BISACODYL SUPP (10 MG) 10 MG/SUPP.RECT SUPP.RECT RC PRN (14:30)
[2020-04-29] MEDS ORDERED: NA PHOS,M-B/NA PHOS,DI-BA 1 EA ENEMA RC PRN (14:30)
[2020-04-29] MEDS ORDERED: MORPHINE SULFATE INJ 2 MG/ML DISP.SYRIN IV PRN (14:30)
[2020-04-29] MEDS ORDERED: Z GUARD REMEDY 2 OZ OINT TP PRN (14:30)
[2020-04-29] MEDS ORDERED: HYDROCODONE/APAP 5/325MG TABLET PO PRN (14:30)
[2020-04-29] MEDS ORDERED: ZOLPIDEM TARTRATE 5 MG TABLET PO PRN (14:30)
[2020-04-29] MEDS ORDERED: CLONIDINE HCL 0.1 MG TABLET PO PRN (14:30)
[2020-04-29 15:30] VITALS: BP 148/78
--- NOTE | 2020-04-29 15:30 | NUR ---
ms rn received a new admission from er,70 male,responsive to touch and pain stimuli, easily awake,[facility], noted to have sacral decub scar, repositioned for comfort, all needs attended
--- NOTE | 2020-04-29 16:00 | NUR ---
ms rn received w/ low k of 2.7, will text gold.
[2020-04-29] MEDS: PANTOPRAZOLE 40 MG TABLET.DR PO SCH (16:30)
--- NOTE | 2020-04-29 17:00 | NUR ---
ms kyle malcolm wants to have a repeat k level, order on computer.
[2020-04-29] MEDS: CALCIUM ACETATE 667 MG TABLET PO SCH (17:30)
--- NOTE | 2020-04-29 17:50 | NUR ---
ms kyle received k level result, gold aware w/ orders made and carried out.
--- NOTE | 2020-04-29 18:06 | NUR ---
ms rn on bed, all needs attended.
[2020-04-29] MEDS: BLOOD SUGAR DIAGNOSTIC 1 EACH STRIP IN SCH ×2 (18:44→20:19)
[2020-04-29] MEDS: POTASSIUM CL. PREMIX PERIPHER. 50 ML IV SCH ×6 (18:44→23:51)
[2020-04-29 20:00] VITALS: BP_SYST 136; BP_SYST 139; BP_DIAS 69
--- NOTE | 2020-04-29 20:20 | NUR ---
BLOOD ERKNI=129,NO INSULIN GIVEN.
[2020-04-29] MEDS: ONDANSETRON 4 MG TAB.RAPDIS PO PRN (20:30)
[2020-04-29] MEDS: chlorproMAZINE HCL 25 MG TABLET PO SCH (22:00)
[2020-04-29] MEDS: MEROPENEM 500 MG in IV NS 0.9% 50 ML IV SCH (22:44)
[2020-04-29] MEDS: MIRTAZAPINE 15 MG TABLET PO SCH (22:49)
[2020-04-29] MEDS: ATORVASTATIN 40 MG TABLET PO SCH (22:50)
[2020-04-29] MEDS: INSULIN GLARGINE, 100 UNIT/ML CARTRIDGE SQ SCH (23:15)
--- NOTE | 2020-04-29 23:42 | NUR ---
MED NOT AVAILABLE=THORAZINE 25MG FAXED TO THE SENIOR C SOFTWARE DEVELOPER.
[2020-04-30] VITALS: BP 135/64
--- NOTE | 2020-04-30 00:01 | NUR ---
INFORMED DR ROSE FOR TEMP OF 102.5 AT 2101, NO ORDER MADE. ICE PACKS PLACED TO THE PATIENT'S AXILLAE AND FOREHEAD AND TYLENOL 650MG PO GIVEN.
[2020-04-30] MEDS: POTASSIUM CL. PREMIX PERIPHER. 50 ML IV SCH ×2 (00:57→02:14)
--- NOTE | 2020-04-30 02:14 | NUR ---
called nursing sup. chery RE: med plainviewazine.
[2020-04-30 04:00] VITALS: BP_SYST 108; BP_SYST 128; BP_DIAS 49
--- NOTE | 2020-04-30 06:50 | NUR ---
DIRECTOR SECURITY MANAGEMENT CLOSING NOTES: PATIENT IN BED, ASLEEP, AROUSABLE. NO S/S OF DISTRESS NOTED. NO COMPLAIN OF PAIN. HOB ELEVATED AT ALL TIMES. HAD X1 EPISODE OF VOMITTING LAST NIGHT, ZOFRAN 4MG PO GIVEN. CALL LIGHT WITHIN REACH. BED ALARM ON. BED IN LOWEST AND LOCKED POSITION. TURNED AND REPOSITIONED. HEELS OFFLOADED WITH PILLOW. LEFT UPPER ARM AV SHUNT WITH THRILL NOTED. HAD BM 2X,LARGE AMOUNT, VERY SOFT BM.
[2020-04-30 06:51] LABS: BASOPHILS # (AUTO) 0.1 /CMM (0.0-0.2); BASOPHILS % (AUTO) 0.4 % (0.0-2.0); HEMATOCRIT 32 % (39-51); HEMOGLOBIN 10.8 g/dL (13.5-17.5); LYMPHOCYTES # (AUTO) 0.7 /CMM (0.8-4.8); MEAN CORPUSCULAR HGB CONC 33 g/dl (31.0-36.0); MEAN CORPUSCULAR VOLUME 90 fL (80-96); MONOCYTES # (AUTO) 1.8 /CMM (0.1-1.30); MONOCYTES % (AUTO) 12.5 % (2.0-12.0); NEUTROPHILS # (AUTO) 11.9 /CMM (1.8-8.9); NEUTROPHILS % (AUTO) 82.1 % (43.0-81.0); PLATELET COUNT (AUTO) 280 /CMM (150-450); RED BLOOD CELL COUNT(AUTO) 3.61 MIL/uL (4.5-6.0); WHITE BLOOD COUNT (AUTO) 14.5 K/uL (4.3-11.0)
[2020-04-30] MEDS: BLOOD SUGAR DIAGNOSTIC 1 EACH STRIP IN SCH ×4 (06:59→21:35)
--- NOTE | 2020-04-30 07:00 | NUR ---
BLOOD SUGAR CHECKED=68,NO INSULIN GIVEN. MRSA SWAB DONE.
[2020-04-30 07:25] LABS: ALBUMIN 1.7 g/dL (3.4-5.0); BILIRUBIN,TOTAL 0.5 mg/dL (0.2-1.0); CALCIUM, SERUM 8.3 mg/dL (8.5-10.1); CREATININE 5.1 mg/dL (0.6-1.3); MAGNESIUM 2.1 mg/dL (1.8-2.4); PHOSPHORUS 1.6 mg/dL (2.5-4.9); POTASSIUM 3.8 mmol/L (3.5-5.1); TOTAL PROTEIN, SERUM 5.9 g/dL (6.4-8.2)
[2020-04-30] MEDS ORDERED: LINZESS 145 MCG PO SCH (07:30)
--- NOTE | 2020-04-30 08:00 | NUR ---
TELE/RN OPENING NOTE Received patient resting in bed, A&O x 1. Denies any pain/discomfort at this time. Breathing even and non-labored on RA, no SOB noted. No cardiac distress noted. On tele monitor reading, SR with occasional PVCs 85. IV access noted on R AC #18, patent and intact, and flushing well. L AV shunt noted, bruit and thrill present. Sensation from all peripheral extremities intact. Abdominal stapled incisions noted, clean and dry, covered with abdominal dressing. Bed locked to its lowest position, side rails x 2 up, call light in hand. Will continue with current medical management.
--- NOTE | 2020-04-30 08:00 | NUR ---
CORRECTION: ON 3L OXYGEN, TOLERATING WELL, NO RESPIRATORY DISTRESS NOTED.
[2020-04-30 08:31] VITALS: BP 110/70
[2020-04-30] MEDS: AMLODIPINE BESYLATE 10 MG TABLET PO SCH (09:00)
[2020-04-30] MEDS ORDERED: Medication Not On Formulary EA (Omega-3 Fatty Acids/Fish Oil (Fish Oil 1,000 Mg Softgel) PO SCH (09:00)
[2020-04-30] MEDS: FUROSEMIDE 80 MG TABLET PO SCH (09:00)
[2020-04-30] MEDS: LOSARTAN POTASSIUM 50 MG TABLET PO SCH (09:00)
[2020-04-30] MEDS: MEROPENEM 500 MG in IV NS 0.9% 50 ML IV SCH ×2 (09:37→20:19)
[2020-04-30] MEDS: LIDOCAINE 5% (PATCH) 1 EA PATCH TP SCH (09:38)
[2020-04-30] MEDS: GABAPENTIN 100 MG CAPSULE PO SCH (09:38)
[2020-04-30] MEDS: CALCIUM ACETATE 667 MG TABLET PO SCH ×3 (09:38→17:41)
[2020-04-30] MEDS: FERROUS SULFATE (325 MG) 325 MG/TAB TABLET PO SCH (09:39)
[2020-04-30] MEDS: CALCIUM CARB 250MG /VITAMIN D 1 UDTAB PO SCH (09:39)
[2020-04-30] MEDS: FLUOXETINE HCL 20 MG CAPSULE PO SCH (09:39)
[2020-04-30] MEDS: FOLIC ACID 1 MG TABLET PO SCH (09:39)
[2020-04-30] MEDS: MODAFINIL 100 MG TABLET PO SCH (09:39)
[2020-04-30] MEDS: DOCUSATE SODIUM 100 MG CAPSULE PO SCH (09:40)
[2020-04-30] MEDS: ASCORBIC ACID 500 MG TABLET PO SCH (09:40)
[2020-04-30] MEDS: VIT B CMPLX 3/FA/VIT C/BIOTIN 1 TAB TABLET PO SCH (09:40)
[2020-04-30] MEDS: ZINC SULFATE 220 MG CAPSULE PO SCH (09:40)
[2020-04-30] MEDS: PROSOURCE / PROSTAT (PYXIS) 30 ML UDC PO SCH (09:41)
[2020-04-30] MEDS: LEVOTHYROXINE SODIUM 50 MCG TABLET PO SCH (09:43)
[2020-04-30] MEDS: PANTOPRAZOLE 40 MG TABLET.DR PO SCH ×2 (09:44→15:47)
--- NOTE | 2020-04-30 10:00 | NUR ---
TELE/RN NOTE Patient had foul liquid bowel movement today, will continue to monitor.
--- NOTE | 2020-04-30 10:22 | NUR ---
Called [facility] ( [phone] )spoke to GERMÁN to verify if Flu vaccine was given,se states not yet. and that he had his Pneumonia vaccine but unable to determine the date.
--- NOTE | 2020-04-30 10:30 | NUR ---
TELE/RN NOTE Heladio MALONEY at bedside, patient negative for covid PCR test, states okay to transfer to [facility]. Notified discharge door operator. Addendum: 04/30/20 at 1102 by CHELSIE NOGUERA RN In addition to above, notified nursing supervisor small appliance assembly as well.
--- NOTE | 2020-04-30 10:38 | NUR ---
WOUND CARE CONSULT: PT PRESENTS WITH SACRAL INTACT DEEP TISSUE INJURY WITH PERIWOUND SCARRING WELL ABDOMINAL CLOSED INCISION WITH BARTOLOME, PRESENT ON ADMISSION. RN TO CONTACT FACILITY FOR INFORMATION ON ABDOMINAL INCISION. RECOMMEND SURGICAL CONSULT. DR MCCOY NOTIFIED OF CONSULT REQUEST. PT TO BE PLACED ON ISOFLEX LOW AIRLOSS BED. ALL SKIN PROTECTION RECOMMENDATIONS DISCUSSED WITH NURSING STAFF. MD IN AGREEMENT WITH PLAN OF CARE. Addendum: 04/30/20 at 1041 by HUSEYIN FERNANDEZ WNDNU Amended: Links added.
[2020-04-30 10:51] LABS: LYMPHOCYTES % (MANUAL) 8 % (16-48); MONOCYTES % (MANUAL) 12 % (0-11.0); NEUTROPHILS % (MANUAL) 80 (42-76)
[2020-04-30] MEDS ORDERED: INFLUENZA VACCINE 2020-21 0.5 ML DISP.SYRIN IM ONE (11:00)
[2020-04-30] MEDS ORDERED: Z GUARD REMEDY 2 OZ OINT TP PRN (11:00)
--- NOTE | 2020-04-30 11:07 | NUR ---
Inge from [facility] called me back states, that she needs to correct the information given to me by GERMÁN , States patient got his Flu shot 04/19/2020.Also states patient had a history of post colectomy on 03/19/2020 from [facility] thats why he has still his edelmira. Surgeon that performed was Dr Sahil Umaña [phone]
--- NOTE | 2020-04-30 11:30 | NUR ---
TELE/RN NOTE Notified Heladio that patient had colectomy on 03/19/2020, so incisions have been there for a month. Heladio states to notify wound care and Evelia GUZMAN for removal. Will continue to monitor.
[2020-04-30 12:00] VITALS: BP 95/67
[2020-04-30] MEDS ORDERED: NEUTRA PHOS 1 POWD.PACKET PO ONE (12:00)
--- NOTE | 2020-04-30 12:00 | NUR ---
TELE/RN NOTE Called Dr. Sahil Umaña's office, spoke to Clint GRAY regarding patient's abdominal incisions. Per Dr. Umaña, okay to remove incisions. Notified Evelia GUZMAN, who confirmed to come and visit patient this afternoon.
--- NOTE | 2020-04-30 12:32 | NUR ---
TELE/RN NOTE Notified Heladio of patient's VTE score of 3, ordered heparin 5000U SQ q12h. Ordered carried out.
--- NOTE | 2020-04-30 12:37 | NUR ---
TELE/RN NOTE Lab called, patient blood culture noted gram positive cocci. Notified HAIDER Leija.
[2020-04-30] MEDS: Z GUARD REMEDY 2 OZ OINT TP SCH (13:03)
[2020-04-30] MEDS ORDERED: VANCOMYCIN 1 GM in IV D5W 250ml IV ONE (14:00)
--- NOTE | 2020-04-30 14:00 | NUR ---
TELE/RN NOTE Patient had second bowel movement, still liquid in consistency and has foul odor, endorsed to Lauren MORRIS.
--- NOTE | 2020-04-30 14:15 | NUR ---
POTATO CHIP PROCESSING SUPERVISOR RECEIVING NOTES RECEIVED TRANSFER FROM MS 2. PATIENT CURRENTLY MEDICALLY STABLE; ON ROOM AIR; A/O X1. WILL CONTINUE TO MONITOR PATIENT.
--- NOTE | 2020-04-30 14:15 | NUR ---
TELE/RN NOTE Transferred patient via bed to [address] [place] [address] with chart and belongings in hand. VSS, afebrile, no respiratory distress noted. On 3L oxygen via NC. No cardiac distress noted. On tele monitor, reading SR 72. IV access remained patent and intact. No s/s of infection, infiltration, or bleeding noted on site. Abdominal staple incision removed by Evelia GUZMAN at 1400, incisions clean and healed. Sensation from all peripheral extremities intact. Bed locked to its lowest position, side rails x 2 up, call light in hand. Gave report to Lauren MORRIS for LAURO.
[2020-04-30] MEDS: ONDANSETRON 4 MG TAB.RAPDIS PO PRN (15:25)
--- NOTE | 2020-04-30 15:37 | NUR ---
EDGE FINISHER NOTES PER PATIENT HE HAS ABDOMINAL PAIN WHICH IS CHRONIC AND ASKING FOR PRN PAIN MEDICATION. ALSO COMPLAINING OF NAUSEA. PRN PAIN MEDICATION AND NAUSEA MEDICATION ADMINISTERED.
[2020-04-30 16:00] VITALS: BP 94/54
--- NOTE | 2020-04-30 17:00 | NUR ---
HYDRAULIC SPINNER NOTES PATIENT WITH LOWER BP 94/54; NOTIFIED MD/ PER MD 250 ML NS BOLUS ONE TIME.
[2020-04-30] MEDS ORDERED: IV NS 0.9% 250 ML IV ONE (17:30)
--- NOTE | 2020-04-30 18:54 | NUR ---
TELE/RN CLOSING NOTE PATIENT IN BED, ASLEEP. PATIENT A/OX1 DURING THE DAY. ON OXYGEN THERAPY; BREATHING IS EVEN AND UNLABORED OB 3 LPM; NO SOB NOTED. PAIN TREATED WITH PRN MEDICATION PER MD ORDER. ON TELE MONITOR WITH READING OF SR [address], BRUIT PRESENT. R HAND IV ACCESS IN PLACE AND INTACT. ALL NEEDS ATTENDED DURING SHIFT. SAFETY PRECAUTIONS IN PLACE: BED IN LOW POSITION AND LOCKED, RAILS UP X2, CALL LIGHT WITHIN REACH. WILL ENDORSE TO MATERIAL COORDINATOR NURSE.
--- NOTE | 2020-04-30 19:10 | NUR ---
RN OPENING NOTES Received patient A/O x1, asleep, easily awaken. On O2 @ 3LPM, saturating well, no s/sx of respiratory distress noted. On tele monitor with NSR noted. On fall and aspiration precautions. Kept on bed clean, dry and comfortable. Will continue to monitor accordingly.
[2020-04-30 20:00] VITALS: BP 108/49
[2020-04-30] MEDS: ATORVASTATIN 40 MG TABLET PO SCH (21:35)
[2020-04-30] MEDS: MIRTAZAPINE 15 MG TABLET PO SCH (21:35)
[2020-04-30] MEDS: chlorproMAZINE HCL 25 MG TABLET PO SCH (21:47)
[2020-04-30] MEDS: INSULIN GLARGINE, 100 UNIT/ML CARTRIDGE SQ SCH (21:49)
[2020-04-30] MEDS: HEPARIN SODIUM, PORCINE 5000 UNITS/1 ML VIAL SQ SCH (21:49)
[2020-04-30] MEDS: INSULIN REGULAR, HUMAN 100 UNIT/ML 3 ML VIAL SQ PRN (21:51)
[2020-05-01 02:00] VITALS: BP 117/54
[2020-05-01] MEDS ORDERED: VANCOMYCIN 500 MG in IV D5W 100 ML IV PRN (06:00)
--- NOTE | 2020-05-01 06:35 | NUR ---
RN CLOSING NOTES Pt asleep on bed, on RA saturating well. No new complaints made. All nursing needs attended, due meds given as ordered. On tele monitor with NSR noted. Kept on bed clean, dry and comfortable. Endorsed.
[2020-05-01 06:41] LABS: BASOPHILS % (AUTO) 0.2 % (0.0-2.0); EOSINOPHILS % (AUTO) 1.5 % (0.0-6.0); HEMATOCRIT 33 % (39-51); HEMOGLOBIN 10.6 g/dL (13.5-17.5); LYMPHOCYTES # (AUTO) 0.7 /CMM (0.8-4.8); LYMPHOCYTES % (AUTO) 5.8 % (20.0-44.0); MEAN CORPUSCULAR HGB CONC 32 g/dl (31.0-36.0); MEAN CORPUSCULAR VOLUME 92 fL (80-96); MONOCYTES # (AUTO) 1.7 /CMM (0.1-1.30); MONOCYTES % (AUTO) 12.9 % (2.0-12.0); NEUTROPHILS # (AUTO) 10.2 /CMM (1.8-8.9); NEUTROPHILS % (AUTO) 79.6 % (43.0-81.0); PLATELET COUNT (AUTO) 247 /CMM (150-450); WHITE BLOOD COUNT (AUTO) 12.8 K/uL (4.3-11.0)
[2020-05-01 07:00] LABS: CALCIUM, SERUM 8.4 mg/dL (8.5-10.1); CREATININE 5.8 mg/dL (0.6-1.3); MAGNESIUM 2.5 mg/dL (1.8-2.4); PHOSPHORUS 2.7 mg/dL (2.5-4.9); POTASSIUM 4.7 mmol/L (3.5-5.1)
[2020-05-01] MEDS: PANTOPRAZOLE 40 MG TABLET.DR PO SCH (07:30)
[2020-05-01] MEDS: LEVOTHYROXINE SODIUM 50 MCG TABLET PO SCH (07:30)
--- NOTE | 2020-05-01 07:40 | NUR ---
RN OPEN NOTES PATIENT IS SLEEPING WITH NO SIGNS OF ACUTE DISTRESS IN ROOM AIR. TELE MONITOR SR NOTED. NO C/O OF PAIN AT THIS MOMENT. IV R AC #18G INTACT AND LAV SHUNT. SAFETY MEASURES ARE APPLIED, BED IS LOW AND LOCKED POSITION. SIDE RAILS UP X 2 FOR SAFETY. CALL LIGHT WITHIN REACH. WILL CONTINUE TO MONITOR.
[2020-05-01 08:00] VITALS: BP 93/41
[2020-05-01] MEDS: CALCIUM ACETATE 667 MG TABLET PO SCH ×3 (08:00→18:08)
--- NOTE | 2020-05-01 08:40 | NUR ---
PATIENT IS VERY SLEEPY MOANS AND MOVES WITH STERNUM FRICTION AND TOUCH. BLOOD SUGAR 95. INFORMED DR. TIWARI OF PATIENT'S LOW BP 93/41 SPOZ 98% HR 77
[2020-05-01] MEDS ORDERED: IV NS 0.9% 500 ML IV ONE ×2 (08:45→09:00)
--- NOTE | 2020-05-01 08:46 | NUR ---
BP 93/41 R ARM SPO2 98% HR 73. INFORMED DR. TIWARI HE ORDERED NS 500 BOLUS AND IF NO BP IMPROVEMENT WILL TRANSFER TO ICU FOR MONITORING.
[2020-05-01] MEDS: BLOOD SUGAR DIAGNOSTIC 1 EACH STRIP IN SCH ×4 (08:56→21:29)
[2020-05-01] MEDS: GABAPENTIN 100 MG CAPSULE PO SCH (09:00)
[2020-05-01] MEDS: LIDOCAINE 5% (PATCH) 1 EA PATCH TP SCH (09:00)
[2020-05-01] MEDS: FUROSEMIDE 80 MG TABLET PO SCH (09:00)
[2020-05-01] MEDS: DOCUSATE SODIUM 100 MG CAPSULE PO SCH (09:00)
[2020-05-01] MEDS: MODAFINIL 100 MG TABLET PO SCH (09:00)
[2020-05-01] MEDS: FOLIC ACID 1 MG TABLET PO SCH (09:00)
[2020-05-01] MEDS: FLUOXETINE HCL 20 MG CAPSULE PO SCH (09:00)
[2020-05-01] MEDS: ZINC SULFATE 220 MG CAPSULE PO SCH (09:00)
[2020-05-01] MEDS: FERROUS SULFATE (325 MG) 325 MG/TAB TABLET PO SCH (09:00)
[2020-05-01] MEDS: ASCORBIC ACID 500 MG TABLET PO SCH (09:00)
[2020-05-01] MEDS: PROSOURCE / PROSTAT (PYXIS) 30 ML UDC PO SCH (09:00)
[2020-05-01] MEDS: AMLODIPINE BESYLATE 10 MG TABLET PO SCH (09:00)
[2020-05-01] MEDS: VIT B CMPLX 3/FA/VIT C/BIOTIN 1 TAB TABLET PO SCH (09:00)
[2020-05-01] MEDS: LOSARTAN POTASSIUM 50 MG TABLET PO SCH (09:00)
[2020-05-01] MEDS: CALCIUM CARB 250MG /VITAMIN D 1 UDTAB PO SCH (09:00)
--- NOTE | 2020-05-01 09:00 | NUR ---
UNABLE TO GIVE PO MEDICATIONS, PATIENT VERY SLEEPY AND UNABLE TO FOLLOW COMMAND AT THIS TIME. WILL CONTINUE TO MONITOR. DR. TIWARI AWARE.
[2020-05-01 10:30] VITALS: BP 110/48
--- NOTE | 2020-05-01 10:35 | NUR ---
RE-ASSESSED PATIENT BP 100/48 RT ARM MANUALLY. HR RATE 77. BS IS 92. BATHED PATIENT WITH AUTO CLUTCH REBUILDER CANDACE PATIENT OPENS HIS EYES AND MOANS. WILL CONTINUE TO MONITOR.
[2020-05-01 11:15] LABS: BAND % (MANUAL) 1 % (0.0-5.0); LYMPHOCYTES % (MANUAL) 12 % (16-48); MONOCYTES % (MANUAL) 12 % (0-11.0); NEUTROPHILS % (MANUAL) 75 (42-76)
[2020-05-01] MEDS: INSULIN REGULAR, HUMAN 100 UNIT/ML 3 ML VIAL SQ PRN ×2 (12:01→21:30)
[2020-05-01] MEDS: Z GUARD REMEDY 2 OZ OINT TP SCH (12:16)
[2020-05-01] MEDS: MEROPENEM 500 MG in IV NS 0.9% 50 ML IV SCH ×2 (12:25→20:50)
[2020-05-01] MEDS: HEPARIN SODIUM, PORCINE 5000 UNITS/1 ML VIAL SQ SCH ×2 (13:03→21:11)
--- NOTE | 2020-05-01 14:30 | NUR ---
RN NOTES GOT REPORT FROM NURSE.PATIENT IS RESTING WITH NO SIGNS OF ACUTE DISTRESS IN ROOM AIR. TELE MONITOR SR NOTED. NO C/O OF PAIN AT THIS MOMENT. IV R AC #18G INTACT AND LAV SHUNT. SAFETY MEASURES ARE IMPLEMENTED BY HOSPITAL PROTOCOL, BED IS LOW AND LOCKED POSITION. SIDE RAILS UP X 2 FOR SAFETY. CALL LIGHT WITHIN REACH. WILL CONTINUE TO MONITOR
[2020-05-01 16:00] VITALS: BP 102/55
[2020-05-01] MEDS: PANTOPRAZOLE 40 MG/PACK PACK PO SCH (18:08)
--- NOTE | 2020-05-01 19:12 | NUR ---
RN CLOSING NOTES PATIENT IN BED, ASLEEP. PATIENT A/OX1 DURING THE DAY. ON OXYGEN THERAPY; BREATHING IS EVEN AND UNLABORED OB 3 LPM; NO SOB NOTED. ON TELE MONITOR WITH READING OF SR [address], BRUIT PRESENT. R HAND IV ACCESS IN PLACE AND INTACT. ALL NEEDS ATTENDED DURING MY SHIFT. SAFETY PRECAUTIONS ARE IMPLEMENTED BY HOSPITAL POLICY.IN PLACE: BED IS IN LOW POSITION AND LOCKED, RAILS UP X2, CALL LIGHT WITHIN REACH. WILL ENDORSE TO SENIOR CARE MANAGER NURSE.
[2020-05-01 20:00] VITALS: BP 104/50
[2020-05-01] MEDS: ATORVASTATIN 40 MG TABLET PO SCH (21:11)
[2020-05-01] MEDS: MIRTAZAPINE 15 MG TABLET PO SCH (21:11)
[2020-05-01] MEDS: chlorproMAZINE HCL 25 MG TABLET PO SCH (21:28)
[2020-05-01] MEDS: INSULIN GLARGINE, 100 UNIT/ML CARTRIDGE SQ SCH (21:29)
[2020-05-02 06:41] LABS: BASOPHILS % (AUTO) 0.2 % (0.0-2.0); EOSINOPHILS % (AUTO) 0.4 % (0.0-6.0); HEMATOCRIT 37 % (39-51); HEMOGLOBIN 11.8 g/dL (13.5-17.5); LYMPHOCYTES # (AUTO) 1.2 /CMM (0.8-4.8); LYMPHOCYTES % (AUTO) 7.2 % (20.0-44.0); MEAN CORPUSCULAR HGB CONC 32 g/dl (31.0-36.0); MEAN CORPUSCULAR VOLUME 91 fL (80-96); MONOCYTES # (AUTO) 1.8 /CMM (0.1-1.30); MONOCYTES % (AUTO) 10.7 % (2.0-12.0); NEUTROPHILS % (AUTO) 81.5 % (43.0-81.0); PLATELET COUNT (AUTO) 198 /CMM (150-450); RED BLOOD CELL COUNT(AUTO) 4.03 MIL/uL (4.5-6.0); WHITE BLOOD COUNT (AUTO) 17.2 K/uL (4.3-11.0)
[2020-05-02] MEDS: INSULIN REGULAR, HUMAN 100 UNIT/ML 3 ML VIAL SQ PRN (06:47)
[2020-05-02] MEDS: BLOOD SUGAR DIAGNOSTIC 1 EACH STRIP IN SCH ×4 (06:47→21:42)
[2020-05-02 06:59] LABS: CALCIUM, SERUM 8.7 mg/dL (8.5-10.1); CREATININE 6.7 mg/dL (0.6-1.3); MAGNESIUM 2.7 mg/dL (1.8-2.4); PHOSPHORUS 2.7 mg/dL (2.5-4.9); POTASSIUM 5.6 mmol/L (3.5-5.1)
--- NOTE | 2020-05-02 07:00 | NUR ---
PT ON BED RESTING NO SIGN AND SYMPTOMS OF RESPIRATORY DISTRESS NO COMPLAINT OF PAIN, NO SIGNIFICANT CHANGES ON CONDITION NOTED ALL NEEDS ATTENDED SAFETY MEASURE MAINTAINED BED ON LOWEST POSITION AND LOCKED WILL ENDORSE TO AM SHIFT NURSE
--- NOTE | 2020-05-02 07:48 | NUR ---
MS/RN Opening note Patient received from software applications architect. Sleeping soundly at this time, appears comfortable, in no distress. Safety measures in place, side rails X3 in upright position, bed in low setting, brakes locked. Bed alarm switched on, call light within reach, will continue to monitor and ensure safety.
[2020-05-02 08:00] VITALS: BP 119/43
[2020-05-02] MEDS: CALCIUM CARB 250MG /VITAMIN D 1 UDTAB PO SCH (08:15)
[2020-05-02] MEDS: LEVOTHYROXINE SODIUM 50 MCG TABLET PO SCH (08:15)
[2020-05-02] MEDS: MEROPENEM 500 MG in IV NS 0.9% 50 ML IV SCH ×2 (08:15→21:21)
[2020-05-02] MEDS: LIDOCAINE 5% (PATCH) 1 EA PATCH TP SCH (08:15)
[2020-05-02] MEDS: CALCIUM ACETATE 667 MG TABLET PO SCH ×3 (08:16→16:55)
[2020-05-02] MEDS: FERROUS SULFATE (325 MG) 325 MG/TAB TABLET PO SCH (08:16)
[2020-05-02] MEDS: PANTOPRAZOLE 40 MG/PACK PACK PO SCH ×2 (08:16→16:55)
[2020-05-02] MEDS: GABAPENTIN 100 MG CAPSULE PO SCH (08:16)
[2020-05-02] MEDS: ZINC SULFATE 220 MG CAPSULE PO SCH (08:16)
[2020-05-02] MEDS: FOLIC ACID 1 MG TABLET PO SCH (08:16)
[2020-05-02] MEDS: VIT B CMPLX 3/FA/VIT C/BIOTIN 1 TAB TABLET PO SCH (08:16)
[2020-05-02] MEDS: FLUOXETINE HCL 20 MG CAPSULE PO SCH (08:16)
[2020-05-02] MEDS: DOCUSATE SODIUM 100 MG CAPSULE PO SCH (08:16)
[2020-05-02] MEDS: ASCORBIC ACID 500 MG TABLET PO SCH (08:17)
[2020-05-02] MEDS: MODAFINIL 100 MG TABLET PO SCH (08:17)
[2020-05-02] MEDS: HEPARIN SODIUM, PORCINE 5000 UNITS/1 ML VIAL SQ SCH ×2 (08:18→21:23)
[2020-05-02] MEDS: PROSOURCE / PROSTAT (PYXIS) 30 ML UDC PO SCH (08:21)
[2020-05-02] MEDS: Z GUARD REMEDY 2 OZ OINT TP SCH (08:21)
[2020-05-02] MEDS: AMLODIPINE BESYLATE 10 MG TABLET PO SCH (08:22)
[2020-05-02] MEDS: LOSARTAN POTASSIUM 50 MG TABLET PO SCH (08:23)
[2020-05-02] MEDS: FUROSEMIDE 80 MG TABLET PO SCH (08:23)
--- NOTE | 2020-05-02 10:30 | NUR ---
MS/RN S/B Dr Hart Seen by Dr Hart - all medications dosed appropriately, continue to assess daily for dialysis needs.
--- NOTE | 2020-05-02 10:42 | NUR ---
MS/RN HDX HDX started at bedside.
[2020-05-02 12:29] VITALS: BP 154/57
--- NOTE | 2020-05-02 13:00 | NUR ---
MS/RN HDX HDX treatment completed, remained stable throughout. 1l fluid removed.
[2020-05-02 16:00] VITALS: BP 131/51
--- NOTE | 2020-05-02 16:30 | NUR ---
MS/RN Blood sugar Blood sugar at 1630 [id number], no coverage needed. Encouraged to eat dinner to maintain blood sugar level.
--- NOTE | 2020-05-02 18:19 | NUR ---
MS/RN End note Patient remains in stable condition, all needs attended. Will endorse to mine shifter.
--- NOTE | 2020-05-02 19:24 | NUR ---
MS RN OPENING NOTES PATIENT AWAKE IN BED. A/OX2; PRIMARY LANGUAGE DUTCH. ON 2L NC; NO S/S OF ACUTE RESPIRATORY DISTRESS; BREATHING IS EVEN AND UNLABORED. NO C/O PAIN AT THIS TIME. IV PRESENT ON RIGHT FA, SIZE 22, INTACT & PATENT, HEP LOCKED. SAFETY MEASURES IN PLACE AND PATIENT'S NEEDS MET. BED LOCKED, ALARM ON, HOB ELEVATED, SIDE RAILS X3, CALL LIGHT WITHIN REACH. WILL CONTINUE TO MONITOR.
[2020-05-02 20:00] VITALS: BP 119/55
[2020-05-02 20:36] VITALS: BP 119/55
[2020-05-02] MEDS: MIRTAZAPINE 15 MG TABLET PO SCH (21:21)
[2020-05-02] MEDS: ATORVASTATIN 40 MG TABLET PO SCH (21:21)
[2020-05-02] MEDS: chlorproMAZINE HCL 25 MG TABLET PO SCH (21:21)
[2020-05-02] MEDS: INSULIN GLARGINE, 100 UNIT/ML CARTRIDGE SQ SCH (22:00)
--- NOTE | 2020-05-02 22:22 | NUR ---
MS RN NOTES PATIENT'S BLOOD GLUCOSE 85. HELD SCHEDULED LANTUS 6 UNITS.
[2020-05-03] MEDS: PANTOPRAZOLE 40 MG/PACK PACK PO SCH ×2 (06:32→08:49)
[2020-05-03] MEDS: BLOOD SUGAR DIAGNOSTIC 1 EACH STRIP IN SCH ×4 (06:32→21:20)
[2020-05-03] MEDS: LEVOTHYROXINE SODIUM 50 MCG TABLET PO SCH (06:32)
--- NOTE | 2020-05-03 07:18 | NUR ---
MS RN CLOSING NOTES PATIENT AWAKE IN BED. A/OX2. ON 2L NC; NO S/S OF ACUTE RESPIRATORY DISTRESS; BREATHING IS EVEN AND UNLABORED. NO C/O PAIN AT THIS TIME. IV PRESENT ON RIGHT FA, SIZE 22, INTACT & PATENT, WITH NS RUNNING TKO. SAFETY MEASURES IN PLACE AND PATIENT'S NEEDS MET. BED LOCKED, ALARM ON, HOB ELEVATED, SIDE RAILS X3, CALL LIGHT WITHIN REACH. ENDORSED TO DAY SHIFT RN PLAN OF CARE.
[2020-05-03 07:21] LABS: MEAN CORPUSCULAR VOLUME 95 fL (80-96)
--- NOTE | 2020-05-03 07:21 | NUR ---
MS/RN OPENING NOTE PATIENT RECEIVED FROM CLOTH SHRINKER. PATIENT IN STABLE CONDITION. LAYING IN BED, NO ACUTE DISTRESS NOTED. SAFETY PRECAUTION IN PLACE. PATIENT BED IS LOCKED IN LOWEST POSITION. CALL LIGHT WITHIN REACH WILL CONTINUE TO MONITOR AND ENSURE SAFETY.
[2020-05-03 07:25] LABS: BASOPHILS % (AUTO) 0.2 % (0.0-2.0); EOSINOPHILS % (AUTO) 3.8 % (0.0-6.0); HEMATOCRIT 38 % (39-51); HEMOGLOBIN 11.5 g/dL (13.5-17.5); LYMPHOCYTES # (AUTO) 0.8 /CMM (0.8-4.8); LYMPHOCYTES % (AUTO) 4.5 % (20.0-44.0); MEAN CORPUSCULAR HGB CONC 31 g/dl (31.0-36.0); MONOCYTES # (AUTO) 1.6 /CMM (0.1-1.30); MONOCYTES % (AUTO) 9.5 % (2.0-12.0); NEUTROPHILS # (AUTO) 13.6 /CMM (1.8-8.9); PLATELET COUNT (AUTO) 136 /CMM (150-450); RED BLOOD CELL COUNT(AUTO) 3.93 MIL/uL (4.5-6.0); WHITE BLOOD COUNT (AUTO) 16.6 K/uL (4.3-11.0)
[2020-05-03 07:33] LABS: CALCIUM, SERUM 8.5 mg/dL (8.5-10.1); CREATININE 5.8 mg/dL (0.6-1.3); MAGNESIUM 2.5 mg/dL (1.8-2.4); PHOSPHORUS 1.8 mg/dL (2.5-4.9)
[2020-05-03 08:00] VITALS: BP 129/46
[2020-05-03] MEDS: CALCIUM ACETATE 667 MG TABLET PO SCH ×3 (08:46→17:25)
[2020-05-03] MEDS: GABAPENTIN 100 MG CAPSULE PO SCH (08:46)
[2020-05-03] MEDS: LOSARTAN POTASSIUM 50 MG TABLET PO SCH (08:48)
[2020-05-03] MEDS: VIT B CMPLX 3/FA/VIT C/BIOTIN 1 TAB TABLET PO SCH (08:48)
[2020-05-03] MEDS: CALCIUM CARB 250MG /VITAMIN D 1 UDTAB PO SCH (08:48)
[2020-05-03] MEDS: MODAFINIL 100 MG TABLET PO SCH (08:49)
[2020-05-03] MEDS: ZINC SULFATE 220 MG CAPSULE PO SCH (08:49)
[2020-05-03] MEDS: AMLODIPINE BESYLATE 10 MG TABLET PO SCH (08:49)
[2020-05-03] MEDS: FUROSEMIDE 80 MG TABLET PO SCH (08:49)
[2020-05-03] MEDS: DOCUSATE SODIUM 100 MG CAPSULE PO SCH (08:49)
[2020-05-03] MEDS: ASCORBIC ACID 500 MG TABLET PO SCH (08:50)
[2020-05-03] MEDS: FOLIC ACID 1 MG TABLET PO SCH (08:50)
[2020-05-03] MEDS: FLUOXETINE HCL 20 MG CAPSULE PO SCH (08:50)
[2020-05-03] MEDS: FERROUS SULFATE (325 MG) 325 MG/TAB TABLET PO SCH (08:50)
[2020-05-03] MEDS: HEPARIN SODIUM, PORCINE 5000 UNITS/1 ML VIAL SQ SCH ×2 (08:51→21:14)
[2020-05-03] MEDS: LIDOCAINE 5% (PATCH) 1 EA PATCH TP SCH (08:52)
[2020-05-03] MEDS: MEROPENEM 500 MG in IV NS 0.9% 50 ML IV SCH ×2 (08:52→21:06)
[2020-05-03] MEDS: PROSOURCE / PROSTAT (PYXIS) 30 ML UDC PO SCH (09:18)
[2020-05-03] MEDS: Z GUARD REMEDY 2 OZ OINT TP SCH (09:19)
[2020-05-03 11:40] LABS: EOSINOPHILS % (MANUAL) 5 % (0-4); LYMPHOCYTES % (MANUAL) 8 % (16-48); MONOCYTES % (MANUAL) 8 % (0-11.0); NEUTROPHILS % (MANUAL) 79 (42-76)
[2020-05-03] MEDS: INSULIN REGULAR, HUMAN 100 UNIT/ML 3 ML VIAL SQ PRN ×2 (11:55→17:02)
[2020-05-03] MEDS ORDERED: MERO500V21 IV (12:39)
[2020-05-03] MEDS ORDERED: INFLUENZA VACCINE 2020-21 0.5 ML DISP.SYRIN IM ONE (14:30)
--- NOTE | 2020-05-03 14:40 | NUR ---
MS/RN FLU FLU VACCINATION WAS ADMINISTERED IN RIGHT DELTOID. WILL MONITOR FOR ALLERGIC/ADVERSE REACTION.
[2020-05-03 16:00] VITALS: BP 126/50
--- NOTE | 2020-05-03 18:45 | NUR ---
MS/RN CLOSING NOTE PATIENT A/O X1-2. HONDURAN SPEAKING AWAKE AT THIS TIME. VS WITHIN NORMAL RANGE. LAYING IN BED ON ROOM AIR. , NO ACUTE DISTRESS NOTED. IV ACCESS ON R FA INTACT AND PATENT. LEFT UPPEr ARM AV SHUNT IN PLACE WITH POSITIVE BRUEL AND SHRILL. SAFETY PRECAUTION IN PLACE. ALL PATIENT NEEDS AND CARE PROVIDED. PATIENT BED IS LOCKED IN LOWEST POSITION. CALL LIGHT WITHIN REACH WILL CONTINUE TO MONITOR AND ENSURE SAFETY. WILL ENDORSE TO FRENCH BINDING FOLDER.
[2020-05-03 20:00] VITALS: BP 124/73
--- NOTE | 2020-05-03 20:06 | NUR ---
MS/RN OPENING NOTE Patient awake in bed, A/O x1-2, setswana speaking only. Breathing even, unlabored. No acute distress or SOB noted. Tongue midline, no tracheal deviation. CRP <3seconds. Pulses 2+. Skin warm, pink, dry appropriate foe ethnicity. DTI sacral noted with mepilex, clean and intact. Abdomen round, soft, non-tender. BS hypoactive. Patient is incontinent. Patient is on renal diet, eating well. IV site RFA 22g, saline locked, patent and intact. AV shunt noted in L arm. Thrill and bruit +. Bed in low position, wheels locked, bed alarm on, side rails up x2, call light within reach.
[2020-05-03] MEDS: ATORVASTATIN 40 MG TABLET PO SCH (21:06)
[2020-05-03] MEDS: chlorproMAZINE HCL 25 MG TABLET PO SCH (21:06)
[2020-05-03] MEDS: MIRTAZAPINE 15 MG TABLET PO SCH (21:07)
[2020-05-03] MEDS: INSULIN GLARGINE, 100 UNIT/ML CARTRIDGE SQ SCH (21:10)
[2020-05-03 23:40] VITALS: BP 124/73
--- NOTE | 2020-05-04 06:07 | NUR ---
MS/RN CLOSING NOTE Patient awake in bed, A/O x1-2, japanese speaking only. Breathing even, unlabored. No acute distress or SOB noted. DTI sacral noted with mepilex, changed, clean and intact. Abdomen round, soft, non-tender. 2x BM soft, loose, brown, small. Patient is incontinent. Patient is on renal diet, eating well. IV site RFA 22g, saline locked, patent and intact. AV shunt noted in L arm. Thrill and bruit +. Bed in low position, wheels locked, bed alarm on, side rails up x2, call light within reach.
[2020-05-04] MEDS: BLOOD SUGAR DIAGNOSTIC 1 EACH STRIP IN SCH ×2 (06:32→12:01)
[2020-05-04] MEDS: LEVOTHYROXINE SODIUM 50 MCG TABLET PO SCH (06:42)
[2020-05-04] MEDS: PANTOPRAZOLE 40 MG/PACK PACK PO SCH (06:42)
--- NOTE | 2020-05-04 08:05 | NUR ---
RN OPENING NOTE Patient is resting in bed, A/O x2-3, showing no signs of acute distress or SOB, stable on RA. IV line in the RFA#22g is clean and intact flushing well. LEft arm AV shunt present. BS this AM was 78, patient is eating breakfast. Bed is in lowest position, side rails x3 in upright position, call light is within reach, fall safety and aspiration precautions enforced. Will continue with plan of care.
[2020-05-04] MEDS: CALCIUM ACETATE 667 MG TABLET PO SCH ×2 (08:40→12:08)
[2020-05-04] MEDS: VIT B CMPLX 3/FA/VIT C/BIOTIN 1 TAB TABLET PO SCH (08:40)
[2020-05-04] MEDS: ASCORBIC ACID 500 MG TABLET PO SCH (08:40)
[2020-05-04] MEDS: LIDOCAINE 5% (PATCH) 1 EA PATCH TP SCH (08:40)
[2020-05-04] MEDS: FERROUS SULFATE (325 MG) 325 MG/TAB TABLET PO SCH (08:40)
[2020-05-04] MEDS: FOLIC ACID 1 MG TABLET PO SCH (08:40)
[2020-05-04] MEDS: CALCIUM CARB 250MG /VITAMIN D 1 UDTAB PO SCH (08:40)
[2020-05-04] MEDS: ZINC SULFATE 220 MG CAPSULE PO SCH (08:41)
[2020-05-04] MEDS: GABAPENTIN 100 MG CAPSULE PO SCH (08:41)
[2020-05-04] MEDS: FLUOXETINE HCL 20 MG CAPSULE PO SCH (08:41)
[2020-05-04] MEDS: LOSARTAN POTASSIUM 50 MG TABLET PO SCH (08:42)
[2020-05-04] MEDS: MEROPENEM 500 MG in IV NS 0.9% 50 ML IV SCH (08:42)
[2020-05-04] MEDS: HEPARIN SODIUM, PORCINE 5000 UNITS/1 ML VIAL SQ SCH (08:42)
[2020-05-04 08:43] VITALS: BP 112/56
[2020-05-04] MEDS: AMLODIPINE BESYLATE 10 MG TABLET PO SCH (08:43)
[2020-05-04] MEDS: FUROSEMIDE 80 MG TABLET PO SCH (08:43)
[2020-05-04] MEDS: PROSOURCE / PROSTAT (PYXIS) 30 ML UDC PO SCH (08:46)
[2020-05-04] MEDS: MODAFINIL 100 MG TABLET PO SCH (08:46)
[2020-05-04] MEDS: Z GUARD REMEDY 2 OZ OINT TP SCH (08:46)
[2020-05-04] MEDS: DOCUSATE SODIUM 100 MG CAPSULE PO SCH (09:00)
[2020-05-04] MEDS ORDERED: VANCOMYCIN 1 GM in IV D5W 250 ML IV ONE (11:30)
[2020-05-04] MEDS: INSULIN REGULAR, HUMAN 100 UNIT/ML 3 ML VIAL SQ PRN (12:07)
[2020-05-04] MEDS ORDERED: PNEUMOCOCCAL 23-VAL P-SAC VAC 0.5 ML VIAL SQ ONE (14:30)
--- NOTE | 2020-05-04 17:20 | NUR ---
FERMENTER OPERATOR NOTE Patient is medically cleared for discharge. A/O x2, showing no signs of acute distress or SOB, stable on RA. Skin assessed, photos taken and placed in chart. IV line will go with the patient due to IV vanco order for 4 more days per ID. S/P HD TODAY WITH 1 L OUT. DC paperwork co-signed with RN due to patient ALOC and weakness. All belongings are with the patient. All patient needs met, all due medications given, patient kept clean and dry throughout shift. Report given to Michelle MORRIS at [facility]. Patient left unit with EMS en route to [facility].
[2020-05-04] MEDS ORDERED: INFLUENZA VACCINE 2020-21 0.5 ML DISP.SYRIN IM ONE (17:30)
== END 2020-05-04 17:30 | DRG 871 ==
LOC: ER 10:06 → TELE2 14:05 → TELE 04-30 15:18 → MED 05-01 09:07
PROVIDERS: ADMIT Nurse Practitioner Acute Care
PROC: 5A1D70Z Performance of Urinary Filtration, Intermittent, Less than 6 Hours Per Day (ICD-10-PCS; principal; 2020-04-29)
DX: A41.9 Sepsis, unspecified organism (principal); N18.6 End stage renal disease; E43 Unspecified severe protein-calorie malnutrition; G92 Toxic encephalopathy; J18.9 Pneumonia, unspecified organism; J96.01 Acute respiratory failure with hypoxia; I13.2 Hypertensive heart and chronic kidney disease with heart failure and with stage 5 chronic kidney disease, or end stage renal disease; I50.32 Chronic diastolic (congestive) heart failure; E87.2 Acidosis; F03.90 Unspecified dementia, unspecified severity, without behavioral disturbance, psychotic disturbance, mood disturbance, and anxiety; E87.6 Hypokalemia; Z86.73 Personal history of transient ischemic attack (TIA), and cerebral infarction without residual deficits; Z99.2 Dependence on renal dialysis; M19.90 Unspecified osteoarthritis, unspecified site; K21.9 Gastro-esophageal reflux disease without esophagitis; E03.9 Hypothyroidism, unspecified; E11.22 Type 2 diabetes mellitus with diabetic chronic kidney disease; E11.40 Type 2 diabetes mellitus with diabetic neuropathy, unspecified; D63.8 Anemia in other chronic diseases classified elsewhere; E78.5 Hyperlipidemia, unspecified; F32.9 Major depressive disorder, single episode, unspecified; F41.9 Anxiety disorder, unspecified; K58.9 Irritable bowel syndrome, unspecified; E21.3 Hyperparathyroidism, unspecified; Z79.4 Long term (current) use of insulin; Z79.899 Other long term (current) drug therapy; R65.20 Severe sepsis without septic shock; F20.9 Schizophrenia, unspecified; Z86.19 Personal history of other infectious and parasitic diseases; Z90.49 Acquired absence of other specified parts of digestive tract; L89.156 Pressure-induced deep tissue damage of sacral region; I67.2 Cerebral atherosclerosis; H54.7 Unspecified visual loss
CPT/HCPCS: 36415; 70450-TC; 71045-TC; 80048-TC; 80053-TC; 80076-TC; 80202-TC; 81001; 82140-TC; 82962-TC; 83605-TC; 83735-TC; 84100-TC; 84132-TC; 84484-TC; 85025-TC; 85730-TC; 87040-TC; 87081-TC; 87086-TC; 90935-TC; 97112-TC; 97530-TC; A6253; A6403; G0378; J1644; J1815; J2185; J3370; J3480; J7030; J7040; J7050; J7060; Q0161; Q0162; Q2036; U0003

== ENCOUNTER 2020-08-03 04:11 | Inpatient (IN) | payer MEDICARE, OTHER ==
[~2020-08-03] VITALS: Ht 167.6 cm; Wt 68.9 kg
[~2020-08-03 04:11] MED LIST changes: +ACET325T53 PO; +AMIN887L PO; +CALC1TAB30 PO; -CLON1PAT2 TD; +FERR325T23 PO; +FURO80TA85 PO; +MERO500V21 IV; +ONDA4TAB5 PO; -SENN-261 PO; +ZINC220C6 PO
--- NOTE | 2020-08-03 04:11 | NUR ---
JUAN ANTONIO 62 FROM [facility] FOR C/O LOW O2 SAT OF 80s ON R/A ON SCENE. PT UNRESPONSIVE ON TRIAGE. PER EMS "UNKNOWN MENTAL BASELINE TO STAFF @ SNF", PT PLACED ON MONITOR, PIV STARTED. BLOOD COLLECTED, SENT TO LAB, GOWNED, PLACED ON NON-RBR. SAT 100% AT THIS TIME.
[2020-08-03] MEDS ORDERED: ACETAMINOPHEN 650 MG/SUPP.RECT RC ONE ×2 (04:32→05:00)
[2020-08-03 04:38] LABS: BASOPHILS # (AUTO) 0.1 /CMM (0.0-0.2); BASOPHILS % (AUTO) 0.6 % (0.0-2.0); HEMATOCRIT 24 % (39-51); HEMOGLOBIN 7.8 g/dL (13.5-17.5); LYMPHOCYTES # (AUTO) 0.5 /CMM (0.8-4.8); LYMPHOCYTES % (AUTO) 4.7 % (20.0-44.0); MEAN CORPUSCULAR HGB CONC 33 g/dl (31.0-36.0); MEAN CORPUSCULAR VOLUME 95 fL (80-96); MONOCYTES # (AUTO) 0.5 /CMM (0.1-1.30); MONOCYTES % (AUTO) 5.1 % (2.0-12.0); NEUTROPHILS # (AUTO) 9.3 /CMM (1.8-8.9); NEUTROPHILS % (AUTO) 89.6 % (43.0-81.0); PLATELET COUNT (AUTO) 185 /CMM (150-450); RED BLOOD CELL COUNT(AUTO) 2.47 MIL/uL (4.5-6.0); WHITE BLOOD COUNT (AUTO) 10.3 K/uL (4.3-11.0)
[2020-08-03 04:57] LABS: CALCIUM, SERUM 8.1 mg/dL (8.5-10.1); CREATININE 6.8 mg/dL (0.6-1.3); POTASSIUM 4.2 mmol/L (3.5-5.1)
[2020-08-03 05:11] LABS: ALBUMIN 2.7 g/dL (3.4-5.0); BILIRUBIN,DIRECT 0.2 mg/dL (0.0-0.2); BILIRUBIN,TOTAL 0.5 mg/dL (0.2-1.0); TOTAL PROTEIN, SERUM 7.1 g/dL (6.4-8.2)
--- NOTE | 2020-08-03 05:17 | NUR ---
CALLED [facility] AND SPOKE TO SOBIA. PER HIM; PT IS A, OX3 AND VERBALLY RESPONSIVE IN HIS NORMAL BASELINE, LAST SEEN IN HIS NORMAL BASELINE WAS AT 0230. LAST HD WAS ON MONDAY 07/31 AND LAST COVID TEST WAS ON 07/29 W/ NEGATIVE RESULT.
--- NOTE | 2020-08-03 05:34 | NUR ---
LAB CALLED REGARDING NEGATIVE COVID RESULT.
[2020-08-03] MEDS ORDERED: SEVE800T7 PO (05:50)
[2020-08-03] MEDS ORDERED: ASPI-1169 PO (05:50)
[2020-08-03] MEDS ORDERED: MIDO10TA PO (05:50)
[2020-08-03] MEDS ORDERED: ENOX40DI SQ (05:50)
[2020-08-03] MEDS ORDERED: Z GUARD REMEDY 2 OZ OINT TP PRN (06:00)
[2020-08-03] MEDS ORDERED: ALBUTEROL SULFATE INH 18 GM HFA.AER.AD IH PRN (06:00)
[2020-08-03] MEDS ORDERED: ZOLPIDEM TARTRATE 5 MG TABLET PO PRN (06:00)
[2020-08-03] MEDS ORDERED: ONDANSETRON HCL/PF 4 MG/2 ML VIAL IVP PRN (06:00)
[2020-08-03] MEDS ORDERED: MAGNESIUM HYDROXIDE 30 ML UDC PO PRN (06:00)
[2020-08-03] MEDS ORDERED: PIPERACILLIN /TAZOBACTAM 3.375 G in IV D5W 50 ML IV SCH (06:00)
[2020-08-03] MEDS ORDERED: HYDROCODONE/APAP 5/325MG TABLET PO PRN (06:00)
[2020-08-03] MEDS ORDERED: MORPHINE SULFATE INJ 2 MG/ML DISP.SYRIN IV PRN (06:00)
[2020-08-03] MEDS ORDERED: ACETAMINOPHEN 325 MG TABLET PO PRN (06:00)
[2020-08-03] MEDS ORDERED: MAG HYDROX/AL HYDROX/SIMETH 30 ML UDC PO PRN (06:00)
[2020-08-03 06:01] LABS: OCCULT BLOOD STOOL POSITIVE (NEGATIVE)
--- NOTE | 2020-08-03 06:02 | NUR ---
TELE 203
--- NOTE | 2020-08-03 07:32 | NUR ---
RECEIVED REPORT FROM ALEXANDRA ARZOLA FOR LAURO. PT IS AAOX1, ON 02 AT 15LPM ON NB, V/S STABLE, KEPT RESTED AND COMFORTABLE. WILL CONTINUE TO MONITOR.
[2020-08-03 07:45] LABS: MAGNESIUM 2.2 mg/dL (1.8-2.4); PHOSPHORUS 4.1 mg/dL (2.5-4.9)
[2020-08-03] MEDS ORDERED: ZINC56.713 TP (07:46)
[2020-08-03] MEDS ORDERED: AMIN30LI2 PO (07:46)
[2020-08-03] MEDS ORDERED: NUT.237L67 PO (07:46)
[2020-08-03] MEDS ORDERED: ACET-2605 PO (07:46)
[2020-08-03 07:58] LABS: THYROID STIMULATING HORMONE 48.998 uIU/mL (0.358-3.74)
--- NOTE | 2020-08-03 08:00 | NUR ---
REPORT GIVEN TO ALEXANDRA HASSAN FOR LAURO.
[2020-08-03 08:30] VITALS: BP 104/55
[2020-08-03] MEDS: PANTOPRAZOLE 40 MG TABLET.DR PO SCH (08:30)
[2020-08-03] MEDS ORDERED: ASPIRIN 325 MG TABLET PO ONE (08:30)
--- NOTE | 2020-08-03 08:30 | NUR ---
OPERATIONS CHIEF NOTES RECEIVED PT FROM E.R. STAFF VIA WAN, PT IS LETHARGIC, RESPONSIVE TO NAME, NO SIGN OF PAIN, ON NON REBREATHER MASK AT 15L, O2 SAT OF 99%, ASSISTED TO BED, MADE COMFORTABLE, IV SITE TO LEFT IJ INTACT AND PATENT, VITAL SIGNS TAKEN, ADMITTING ORDERS RECEIVED FROM MD, PLACED ON TELE MONITORING, SINUS RHYTHM AT 60'S, KEPT WARM AND COMFORTABLE IN BED.
[2020-08-03] MEDS ORDERED: VANCOMYCIN 1 GM in IV D5W 250 ML IV ONE (09:00)
[2020-08-03] MEDS ORDERED: DEXAMETHASONE SOD PHOSPHATE 10 MG/ML VIAL IV SCH (09:00)
[2020-08-03 10:51] LABS: ABG BASE EXCESS 0.2 mmol/L; ABG OXYGEN SATURATION 96.1 % (92.0-98.5); ABG PCO2 60.4 mmHg (35.0-45.0); ABG PH 7.276 (7.350-7.450); ABG PO2 94.1 mmHg (75.0-100.0); AaDO2 412.9 mmHg; COHb 0.6 % (0.5-1.5); MetHb 0.1 % (0.0-1.5); O2Hb 95.4 % (94.0-97.0); SITE, ABG Right Brachial
[2020-08-03] MEDS: PIPERACILLIN /TAZOBACTAM 2.25 G in IV D5W 50 ML IV SCH ×2 (11:07→18:14)
[2020-08-03] MEDS: HEPARIN SODIUM, PORCINE 5000 UNITS/1 ML VIAL SQ SCH ×2 (11:35→22:04)
[2020-08-03] MEDS: methylPREDNISolone SOD SUCC 40 MG/ML VIAL IV SCH ×2 (11:35→19:22)
--- NOTE | 2020-08-03 12:13 | NUR ---
FURNACE INSTALLER HELPER NOTE PATIENT IS AWAKE, ALERT AND ORIENTED X 2-3. ABLE TO MAKE NEEDS KNOWN. PATIENT GAVE VERBAL CONSENT TO KAYCE MORRIS AND MO RN FOR BLOOD TRANSFUSION AND HEMODIALYSIS. CALL LIGHT WITHIN REACH. SAFETY PRECAUTIONS MAINTAINED. WILL CONTINUE TO MONITOR.
[2020-08-03] MEDS: IPRATROPIUM/ALBUTEROL INHALER IH SCH ×3 (13:10→23:09)
[2020-08-03 13:41] LABS: ABG BASE EXCESS -0.6 mmol/L; ABG OXYGEN SATURATION 98.1 % (92.0-98.5); ABG PCO2 54.5 mmHg (35.0-45.0); ABG PH 7.302 (7.350-7.450); ABG PO2 128.1 mmHg (75.0-100.0); AaDO2 239.8 mmHg; COHb 0.6 % (0.5-1.5); MetHb 0.2 % (0.0-1.5); O2Hb 97.3 % (94.0-97.0); SITE, ABG Right Brachial; VENT MODE, BG 6 LPM NC
[2020-08-03 16:00] VITALS: BP 98/69
[2020-08-03] MEDS ORDERED: ALBUMIN 25% 50 GM in PREMIX 1 EA IV PRN (16:30)
--- NOTE | 2020-08-03 18:22 | NUR ---
TAXONOMY TEACHER CLOSING NOTE PATIENT IS CURRENTLY SLEEPING IN BED. COMPLETED HEMODIALYSIS TODAY WITH 1400CC OUTPUT. PATIENT IS ALERT AND ORIENTED X 2. NO COMPLAINTS OF PAIN THIS SHIFT. PATIENT IS ON NC 6L WITH O2 SATS BETWEEN 97-100%. NO SIGNS OR SYMPTOMS OF RESPIRATORY DISTRESS NOTED. IV ACCESS TO LEFT EXTERNAL JUGULAR # 18G PATENT AND INTACT. VS: BP 98/69 HR 67 RR 20 T 95.0 O2 SAT 100% ON 6L VIA NC. CALL LIGHT WITHIN REACH. ASPIRATION, FALL AND SAFETY PRECAUTIONS MAINTAINED. WILL ENDORSE CONTINUITY OF CARE TO ONCOMING SHIFT.
[2020-08-03] MEDS: VANCOMYCIN 500 MG in IV D5W 100 ML IV PRN (18:52)
--- NOTE | 2020-08-03 19:10 | NUR ---
RN OPENING NOTE RECEIVED PATIENT IN BED RESTING ALERT ORIENTED X2 VERBALLY RESPONSIVE ON 6L OXYGEN VIA NASAL CANNULA,O2:95% NO SOB NOT ACUTE DISTRESS NOTED,IV SITE IS ON LEFT EXTERNAL JUGULAR # 18G INTACT PATENT,PATIENT IS DIALYSIS PATIENT AV SHUNT ON LEFT UPPER ARM BRUIT AND THRILL PRESENT,SAFETY MEASURE IMPLEMENT,BED IN LOW POSITION AND LOCKED,BED ALARM IS ON,KEEP CALL LIGHT WITHIN REACH,CONTINUE TO MONITOR.
[2020-08-03 19:51] VITALS: BP 121/72
[2020-08-03 20:00] VITALS: BP 121/72
[2020-08-03] MEDS ORDERED: DEXTROSE 50%-WATER 50 ML DISP.SYRIN IV PRN (21:00)
[2020-08-03] MEDS: BLOOD SUGAR DIAGNOSTIC 1 EACH STRIP IN SCH (22:11)
[2020-08-03] MEDS: INSULIN REGULAR, HUMAN 100 UNIT/ML 3 ML VIAL SQ PRN (22:15)
[2020-08-04] VITALS (7 sets, daily range): BP systolic 104–136; BP diastolic 42–73
[2020-08-04] MEDS: PIPERACILLIN /TAZOBACTAM 2.25 G in IV D5W 50 ML IV SCH ×3 (01:23→17:17)
[2020-08-04] MEDS ORDERED: methylPREDNISolone SOD SUCC 40 MG/ML VIAL ONE (03:04)
[2020-08-04] MEDS: methylPREDNISolone SOD SUCC 40 MG/ML VIAL IV SCH ×3 (03:09→18:30)
[2020-08-04] MEDS: IPRATROPIUM/ALBUTEROL INHALER IH SCH ×3 (05:09→17:17)
--- NOTE | 2020-08-04 06:41 | NUR ---
RN CLOSING NOTE PATIENT REMAINS ON ALERT ORIENTED X2 VERBALLY RESPONSIVE ON HEMODIALYSIS,ON 6L OXYGEN VIA NASAL CANNULA, O2:98%,PENDING FOR PCR RESULTS,IV SITE IS ON LEFT EJ #18 INTACT PATENT,AV SHUNT IS ON LEFT UPPER ARM,THRILL AND BRUIT PRESENT,ALL DUE MEDS GIVEN MD ORDERED KEPT CLEAN AND DRY ALL THE TIME,KEPT COMFORTABLE,KEPT CALL LIGHT WITHIN REACH,SAFETY MEASURE IMPLEMENTED,ENDORSE NEXT COMING SHIFT FOR CONTINUATION OF CARE.
[2020-08-04] MEDS: BLOOD SUGAR DIAGNOSTIC 1 EACH STRIP IN SCH ×4 (07:16→23:12)
[2020-08-04] MEDS: INSULIN REGULAR, HUMAN 100 UNIT/ML 3 ML VIAL SQ PRN ×4 (07:18→23:14)
--- NOTE | 2020-08-04 07:35 | NUR ---
CIVIL STRUCTURAL ENGINEER NOTES PATIENT RECEIVED IN BED RESTING COMFORTABLY, ALERT AND ORIENTED X 2-3, SINGAPOREAN SPEAKING. ON PRODUCTION LINE WORKER, SINUS RHYTHM 81. PATIENT ON NASAL CANNULA 6L, WITH NO RESPIRATORY DISTRESS AT THIS TIME, WITH EVEN NON-LABORED BREATHING AND NO SOB NOTED. IV ACCESS ON LEFT IJ, INTACT AND PATENT. AV FISTULA PRESENT ON LEFT UPPER ARM. PATIENT DENIES ANY PAIN OR DISCOMFORT AT THIS TIME. SAFETY PRECAUTIONS IMPLEMENTED WITH BED LOCKED, BILATERAL SIDE RAILS UP, BED ALARM ON, AND CALL LIGHT WITHIN EASY REACH. WILL CONTINUE TO MONITOR PATIENT.
[2020-08-04 07:42] LABS: HEMATOCRIT 25 % (39-51); HEMOGLOBIN 8.2 g/dL (13.5-17.5); LYMPHOCYTES # (AUTO) 0.2 /CMM (0.8-4.8); MEAN CORPUSCULAR HGB CONC 34 g/dl (31.0-36.0); MEAN CORPUSCULAR VOLUME 94 fL (80-96); MONOCYTES # (AUTO) 0.1 /CMM (0.1-1.30); MONOCYTES % (AUTO) 1.7 % (2.0-12.0); NEUTROPHILS # (AUTO) 7.1 /CMM (1.8-8.9); NEUTROPHILS % (AUTO) 95.3 % (43.0-81.0); PLATELET COUNT (AUTO) 220 /CMM (150-450); WHITE BLOOD COUNT (AUTO) 7.4 K/uL (4.3-11.0)
[2020-08-04 08:32] LABS: CALCIUM, SERUM 8.5 mg/dL (8.5-10.1); CREATININE 5.5 mg/dL (0.6-1.3); POTASSIUM 4.3 mmol/L (3.5-5.1)
[2020-08-04] MEDS: HEPARIN SODIUM, PORCINE 5000 UNITS/1 ML VIAL SQ SCH ×2 (08:49→20:05)
[2020-08-04] MEDS: PANTOPRAZOLE 40 MG TABLET.DR PO SCH (08:49)
[2020-08-04] MEDS ORDERED: LEVOTHYROXINE SODIUM 50 MCG TABLET PO SCH (09:00)
[2020-08-04 10:23] LABS: ABG BASE EXCESS 5.6 mmol/L; ABG OXYGEN SATURATION 94.3 % (92.0-98.5); ABG PCO2 49.2 mmHg (35.0-45.0); ABG PH 7.415 (7.350-7.450); ABG PO2 76.1 mmHg (75.0-100.0); AaDO2 94.5 mmHg; COHb 2.1 % (0.5-1.5); MetHb 1.3 % (0.0-1.5); O2Hb 91.1 % (94.0-97.0); SITE, ABG Right Radial; VENT MODE, BG nasal canula 3 lpm
[2020-08-04] MEDS: GABAPENTIN 100 MG CAPSULE PO SCH (16:34)
[2020-08-04] MEDS: FUROSEMIDE 40 MG TABLET PO SCH (16:35)
[2020-08-04] MEDS: SEVELAMER CARBONATE 800 MG TABLET PO SCH (16:35)
[2020-08-04] MEDS ORDERED: FUROSEMIDE 80 MG TABLET PO SCH (17:00)
[2020-08-04] MEDS: POLYVINYL ALCOHOL 15 ML BOTTLE OP SCH (17:17)
--- NOTE | 2020-08-04 18:35 | NUR ---
CUSTOMER COMPLAINT CLERK NOTES PATIENT IN BED RESTING COMFORTABLY, ALERT AND ORIENTED X 2-3, WALLISIAN SPEAKING. ON TOOL DIE MAKER, SINUS RHYTHM 92. PATIENT ON NASAL CANNULA 3L, WITH NO RESPIRATORY DISTRESS AT THIS TIME, WITH EVEN NON-LABORED BREATHING AND NO SOB NOTED. IV ACCESS ON LEFT IJ, INTACT AND PATENT. AV FISTULA PRESENT ON LEFT UPPER ARM. MET ALL OF PATIENT'S NEEDS. PATIENT DENIES ANY PAIN OR DISCOMFORT AT THIS TIME. SAFETY PRECAUTIONS IMPLEMENTED WITH BED LOCKED, BILATERAL SIDE RAILS UP, BED ALARM ON, AND CALL LIGHT WITHIN EASY REACH. WILL ENDORSE PLAN OF CARE TO UPCOMING RN.
--- NOTE | 2020-08-04 20:00 | NUR ---
RN NOTES RECEIVED PT. AWAKE ON BED, A/OX2, COMPLAINING OF NAUSEA-ZOFRAN 4 MG IV GIVEN ORDERED, NOIT IN DISTRESS, NO PAIN NOTED, CALL LIGHT WITHIN REACH, [id number], CONTINUE TO MONITOR
[2020-08-04] MEDS: MIRTAZAPINE 15 MG TABLET PO SCH (23:00)
[2020-08-04] MEDS: ATORVASTATIN 40 MG TABLET PO SCH (23:00)
[2020-08-04] MEDS: chlorproMAZINE HCL 25 MG TABLET PO SCH (23:00)
[2020-08-05] VITALS: BP 142/70
[2020-08-05] MEDS: IPRATROPIUM/ALBUTEROL INHALER IH SCH ×4 (00:06→17:18)
[2020-08-05] MEDS: PIPERACILLIN /TAZOBACTAM 2.25 G in IV D5W 50 ML IV SCH ×3 (02:13→18:47)
[2020-08-05] MEDS: methylPREDNISolone SOD SUCC 40 MG/ML VIAL IV SCH ×3 (02:35→18:48)
[2020-08-05 04:00] VITALS: BP 136/77
--- NOTE | 2020-08-05 06:15 | NUR ---
RN NOTES PT. COMPLAINS OF CONSTIPATION- MOM 30ML PO GIVEN ORDERED
[2020-08-05] MEDS: INSULIN REGULAR, HUMAN 100 UNIT/ML 3 ML VIAL SQ PRN ×4 (06:44→21:50)
[2020-08-05] MEDS: BLOOD SUGAR DIAGNOSTIC 1 EACH STRIP IN SCH ×4 (06:50→21:49)
--- NOTE | 2020-08-05 06:58 | NUR ---
RN NOTES AWAKE, MORNING CARE RENDERED, CALL LIGHT WITHIN [facility], JUAN JOSEX2, PT. NEEDS ATTENDED
--- NOTE | 2020-08-05 07:39 | NUR ---
PROFESSOR OF GERMAN NOTE PATIENT IN BED RESTING COMFORTABLY. PATIENT IN NO ACUTE DISTRESS. NO SOB NOTED. PATIENT BREATHING IS EVEN AND UNLABORED. PATIENT HOB IS ELEVATED. SAFETY PRECAUTIONS IN PLACE. PATIENT BED IS LOCKED AND IN LOWEST POSITION. CALL LIGHT WITHIN REACH. WILL CONTINUE TO MONITOR.
[2020-08-05 08:00] VITALS: BP 135/67
[2020-08-05 08:21] LABS: CREATININE 6.3 mg/dL (0.6-1.3)
[2020-08-05] MEDS: LEVOTHYROXINE SODIUM 75 MCG TABLET PO SCH (08:46)
[2020-08-05] MEDS: PANTOPRAZOLE 40 MG TABLET.DR PO SCH (08:46)
[2020-08-05] MEDS: VIT B CMPLX 3/FA/VIT C/BIOTIN 1 TAB TABLET PO SCH (08:47)
[2020-08-05] MEDS: ASCORBIC ACID 500 MG TABLET PO SCH (08:47)
[2020-08-05] MEDS: GABAPENTIN 100 MG CAPSULE PO SCH (08:47)
[2020-08-05] MEDS: SEVELAMER CARBONATE 800 MG TABLET PO SCH ×3 (08:47→17:21)
[2020-08-05] MEDS: MODAFINIL 100 MG TABLET PO SCH (08:47)
[2020-08-05] MEDS: FUROSEMIDE 40 MG TABLET PO SCH ×2 (08:47→17:21)
[2020-08-05] MEDS: FLUOXETINE HCL 20 MG CAPSULE PO SCH (08:47)
[2020-08-05] MEDS: ASPIRIN 81 MG TAB.CHEW PO SCH (08:47)
[2020-08-05] MEDS: AMLODIPINE BESYLATE 10 MG TABLET PO SCH (08:48)
[2020-08-05] MEDS: HEPARIN SODIUM, PORCINE 5000 UNITS/1 ML VIAL SQ SCH ×2 (08:50→21:23)
[2020-08-05] MEDS: POLYVINYL ALCOHOL 15 ML BOTTLE OP SCH ×3 (09:29→17:17)
[2020-08-05 11:46] LABS: BASOPHILS % (AUTO) 0.1 % (0.0-2.0); HEMATOCRIT 26 % (39-51); HEMOGLOBIN 8.3 g/dL (13.5-17.5); LYMPHOCYTES # (AUTO) 0.2 /CMM (0.8-4.8); MEAN CORPUSCULAR HGB CONC 32 g/dl (31.0-36.0); MEAN CORPUSCULAR VOLUME 97 fL (80-96); MONOCYTES # (AUTO) 0.3 /CMM (0.1-1.30); MONOCYTES % (AUTO) 3.2 % (2.0-12.0); NEUTROPHILS # (AUTO) 9.3 /CMM (1.8-8.9); NEUTROPHILS % (AUTO) 94.7 % (43.0-81.0); PLATELET COUNT (AUTO) 237 /CMM (150-450); WHITE BLOOD COUNT (AUTO) 9.8 K/uL (4.3-11.0)
[2020-08-05] MEDS ORDERED: BISACODYL (5 MG) 5 MG TABLET.DR PO PRN (12:30)
[2020-08-05 16:00] VITALS: BP 140/62
[2020-08-05] MEDS: VANCOMYCIN 500 MG in IV D5W 100 ML IV PRN (17:17)
--- NOTE | 2020-08-05 17:22 | NUR ---
LABORER CEMENT GUN PLACING NOTE PATIENT OKAY TO RECEIVE VANCO PER PHARMACY AFTER HD.
--- NOTE | 2020-08-05 18:40 | NUR ---
MS RN NOTE PATIENT IN BED RESTING COMFORTABLY. PATIENT IN NO ACUTE DISTRESS. NO SOB NOTED. PATIENT BREATHING IS EVEN AND UNLABORED. PATIENT ON CARDIAC MONITORING READING SINUS RHYTHM HR 79. PATIENT KEPT CLEAN, DRY, AND COMFORTABLE THROUGHOUT SHIFT. NEEDS AND CONCERNS ADDRESSED. PATIENT HOB IS ELEVATED. SAFETY PRECAUTIONS IN PLACE. PATIENT BED IS LOCKED AND IN LOWEST POSITION. CALL LIGHT WITHIN REACH. WILL ENDORSE CARE TO PM SHIFT FOR LAURO. Addendum: 08/05/20 at 1843 by JITENDRA SANDY RN VESSEL ENGINEER NOTE PATIENT IN BED RESTING COMFORTABLY. PATIENT IN NO ACUTE DISTRESS. NO SOB NOTED. PATIENT BREATHING IS EVEN AND UNLABORED. PATIENT ON CARDIAC MONITORING READING SINUS RHYTHM HR 79. PATIENT KEPT CLEAN, DRY, AND COMFORTABLE THROUGHOUT SHIFT. NEEDS AND CONCERNS ADDRESSED. PATIENT HOB IS ELEVATED. SAFETY PRECAUTIONS IN PLACE. PATIENT BED IS LOCKED AND IN LOWEST POSITION. CALL LIGHT WITHIN REACH. WILL ENDORSE CARE TO PM SHIFT FOR LAURO.
[2020-08-05 20:00] VITALS: BP_SYST 125; BP_DIAS 58; BP_DIAS 59
--- NOTE | 2020-08-05 20:28 | NUR ---
FUNERAL HOME GENERAL MANAGER NOTES PATIENT IN BED, RESTING, ALERT AND ORIENTED X 2-3. BREATHING EVEN AND UNLABORED ON 3L NC. SHOWS NO SIGNS OF ACUTE RESPIRATORY DISTRESS, NO ACUTE PAIN. IV L IJ 18 CLEAN DRY AND INTACT. FLUSHING WELL. SHOWS NO SIGNS OF INFILTRATION, NO REDNESS. SHELBY AV SHUNT WITH DRESSING INTACT. SAFETY PRECAUTIONS IN PLACE. BED IN LOWEST POSITION, LOCKED, AND CALL LIGHT KEPT WITHIN REACH. WILL CONTINUE TO MONITOR.
[2020-08-05] MEDS: ATORVASTATIN 40 MG TABLET PO SCH (21:17)
[2020-08-05] MEDS: MIRTAZAPINE 15 MG TABLET PO SCH (21:17)
[2020-08-05] MEDS: chlorproMAZINE HCL 25 MG TABLET PO SCH (21:17)
[2020-08-06] VITALS (8 sets, daily range): BP systolic 127–138; BP diastolic 59–71
[2020-08-06] MEDS: IPRATROPIUM/ALBUTEROL INHALER IH SCH ×3 (00:41→11:00)
[2020-08-06] MEDS: PIPERACILLIN /TAZOBACTAM 2.25 G in IV D5W 50 ML IV SCH ×2 (02:16→09:24)
[2020-08-06] MEDS: methylPREDNISolone SOD SUCC 40 MG/ML VIAL IV SCH ×2 (02:38→10:56)
[2020-08-06] MEDS: INSULIN REGULAR, HUMAN 100 UNIT/ML 3 ML VIAL SQ PRN ×3 (06:32→17:01)
[2020-08-06] MEDS: BLOOD SUGAR DIAGNOSTIC 1 EACH STRIP IN SCH ×3 (06:32→16:45)
[2020-08-06 06:39] LABS: HEMATOCRIT 24 % (39-51); HEMOGLOBIN 7.9 g/dL (13.5-17.5); LYMPHOCYTES # (AUTO) 0.2 /CMM (0.8-4.8); LYMPHOCYTES % (AUTO) 1.7 % (20.0-44.0); MEAN CORPUSCULAR HGB CONC 33 g/dl (31.0-36.0); MEAN CORPUSCULAR VOLUME 94 fL (80-96); MONOCYTES # (AUTO) 0.2 /CMM (0.1-1.30); MONOCYTES % (AUTO) 1.7 % (2.0-12.0); NEUTROPHILS # (AUTO) 8.6 /CMM (1.8-8.9); NEUTROPHILS % (AUTO) 96.6 % (43.0-81.0); PLATELET COUNT (AUTO) 275 /CMM (150-450); RED BLOOD CELL COUNT(AUTO) 2.58 MIL/uL (4.5-6.0); WHITE BLOOD COUNT (AUTO) 8.9 K/uL (4.3-11.0)
--- NOTE | 2020-08-06 06:44 | NUR ---
SPARE HAND NOTES PATIENT IN BED, RESTING, ALERT AND ORIENTED X 2-3. BREATHING EVEN AND UNLABORED ON 3L NC. SHOWS NO SIGNS OF ACUTE RESPIRATORY DISTRESS, NO ACUTE PAIN. TELE MONITOR SR. IV L IJ 18 CLEAN DRY AND INTACT. FLUSHING WELL. SHOWS NO SIGNS OF INFILTRATION, NO REDNESS. SHELBY AV SHUNT WITH DRESSING INTACT. ALL DUE MEDICATIONS GIVEN. ALL NEEDS ATTENDED TO. SAFETY PRECAUTIONS IN PLACE. BED IN LOWEST POSITION, LOCKED, AND CALL LIGHT KEPT WITHIN REACH. WILL ENDORSE TO ONCOMING NURSE.
[2020-08-06 07:07] LABS: CALCIUM, SERUM 7.7 mg/dL (8.5-10.1); CREATININE 5.3 mg/dL (0.6-1.3); MAGNESIUM 2.1 mg/dL (1.8-2.4); PHOSPHORUS 3.8 mg/dL (2.5-4.9); POTASSIUM 4.7 mmol/L (3.5-5.1)
--- NOTE | 2020-08-06 07:40 | NUR ---
INTELLIGENCE INTERN NOTES PATIENT RECEIVED IN BED RESTING COMFORTABLY, ALERT AND ORIENTED X 2-3, EGYPTIAN SPEAKING. ON WOODEN BOX MAKER, SINUS RHYTHM 85. PATIENT ON NASAL CANNULA 3L, WITH NO RESPIRATORY DISTRESS AT THIS TIME, WITH EVEN NON-LABORED BREATHING AND NO SOB NOTED. IV ACCESS ON LEFT IJ, INTACT AND PATENT. AV FISTULA PRESENT ON LEFT UPPER ARM. PATIENT DENIES ANY PAIN OR DISCOMFORT AT THIS TIME. SAFETY PRECAUTIONS IMPLEMENTED WITH BED LOCKED, BILATERAL SIDE RAILS UP, BED ALARM ON, AND CALL LIGHT WITHIN EASY REACH. WILL CONTINUE TO MONITOR PATIENT.
--- NOTE | 2020-08-06 09:04 | NUR ---
WOUND CARE CONSULT: PT PRESENTS WITH SACRAL SCARRING, PRESENT ON ADMISSION. RECOMMENDATIONS MADE FOR SKIN PROTECTION. DISCUSSED WITH NURSING STAFF. MD IN AGREEMENT WITH PLAN OF CARE.
[2020-08-06] MEDS: MODAFINIL 100 MG TABLET PO SCH (09:22)
[2020-08-06] MEDS: PANTOPRAZOLE 40 MG TABLET.DR PO SCH (09:22)
[2020-08-06] MEDS: VIT B CMPLX 3/FA/VIT C/BIOTIN 1 TAB TABLET PO SCH (09:22)
[2020-08-06] MEDS: SEVELAMER CARBONATE 800 MG TABLET PO SCH ×3 (09:22→16:45)
[2020-08-06] MEDS: LEVOTHYROXINE SODIUM 75 MCG TABLET PO SCH (09:22)
[2020-08-06] MEDS: FLUOXETINE HCL 20 MG CAPSULE PO SCH (09:22)
[2020-08-06] MEDS: ASPIRIN 81 MG TAB.CHEW PO SCH (09:22)
[2020-08-06] MEDS: GABAPENTIN 100 MG CAPSULE PO SCH (09:22)
[2020-08-06] MEDS: ASCORBIC ACID 500 MG TABLET PO SCH (09:22)
[2020-08-06] MEDS: AMLODIPINE BESYLATE 10 MG TABLET PO SCH (09:23)
[2020-08-06] MEDS: FUROSEMIDE 40 MG TABLET PO SCH ×2 (09:23→16:45)
[2020-08-06] MEDS: HEPARIN SODIUM, PORCINE 5000 UNITS/1 ML VIAL SQ SCH (09:23)
[2020-08-06] MEDS: POLYVINYL ALCOHOL 15 ML BOTTLE OP SCH ×3 (09:25→16:46)
[2020-08-06] MEDS ORDERED: LEVO500P10 IV (14:24)
[2020-08-06] MEDS ORDERED: LEVO500T90 PO (14:43)
--- NOTE | 2020-08-06 16:45 | NUR ---
PRODUCTION SUPERINTENDENT HYDRO NOTES CALLED [facility], SPOKE WITH ALEXANDRA WAGGONER, AND GAVE REPORT.
--- NOTE | 2020-08-06 17:15 | NUR ---
CHILD CARE CENTRE DIRECTOR NOTES PATIENT BLOOD SUGAR 412, INFORMED JERMAINE BULLARD DNP. GAVE THE SLIDING SCALE PROTOCOL INSULIN ORDERED 10 UNITS AND NO NEW ORDERS MADE. WILL CONTINUE TO MONITOR PATIENT.
--- NOTE | 2020-08-06 18:00 | NUR ---
SURGICAL ORDERLY NOTES PATIENT ALERT AND ORIENTED X 2-3 FINNISH SPEAKING, ON NASAL CANNULA 3 LITERS, WITH NO RESPIRATORY DISTRESS NOTED, WITH NON-LABORED BREATHING AND NO SOB NOTED. REMOVED IV ACCESS AND APPLIED PRESSURE TO SITE, AND CATHETER TIP INTACT. AV SHUNT PRESENT ON LEFT UPPER ARM. SKIN WARM AND DRY TO TOUCH. REMOVED ID BAND, PATIENT ACCOUNTED FOR ALL BELONGINGS. SKIN ASSESSMENT DONE AND PHOTOS TAKEN. EXIT CARE PROVIDED. SPOKE WITH ALEXANDRA [place]O FROM [facility] AND INFORMED ETA OF PATIENT. PATIENT LEFT UNIT VIA [place], WITH 2 CLINICAL PSYCHOLOGY PROFESSOR.
== END 2020-08-06 18:10 | DRG 280 ==
LOC: ER 04:13 → TRANSITION 05:58 → TELE2 06:02
PROVIDERS: ADMIT Nurse Practitioner Acute Care; ATTEND Nurse Practitioner Acute Care
PROC: 5A1D70Z Performance of Urinary Filtration, Intermittent, Less than 6 Hours Per Day (ICD-10-PCS; principal; 2020-08-03)
DX: I13.2 Hypertensive heart and chronic kidney disease with heart failure and with stage 5 chronic kidney disease, or end stage renal disease (principal); J96.01 Acute respiratory failure with hypoxia; I21.A1 Myocardial infarction type 2; N18.6 End stage renal disease; J96.02 Acute respiratory failure with hypercapnia; I50.33 Acute on chronic diastolic (congestive) heart failure; G92 Toxic encephalopathy; J18.9 Pneumonia, unspecified organism; D62 Acute posthemorrhagic anemia; E11.22 Type 2 diabetes mellitus with diabetic chronic kidney disease; E11.40 Type 2 diabetes mellitus with diabetic neuropathy, unspecified; E78.5 Hyperlipidemia, unspecified; H54.7 Unspecified visual loss; Z86.73 Personal history of transient ischemic attack (TIA), and cerebral infarction without residual deficits; K58.9 Irritable bowel syndrome, unspecified; K21.9 Gastro-esophageal reflux disease without esophagitis; F03.90 Unspecified dementia, unspecified severity, without behavioral disturbance, psychotic disturbance, mood disturbance, and anxiety; M19.90 Unspecified osteoarthritis, unspecified site; F41.9 Anxiety disorder, unspecified; F32.9 Major depressive disorder, single episode, unspecified; D64.9 Anemia, unspecified; F20.9 Schizophrenia, unspecified; Z90.49 Acquired absence of other specified parts of digestive tract; Z99.2 Dependence on renal dialysis; Z79.4 Long term (current) use of insulin; Z79.899 Other long term (current) drug therapy; D63.8 Anemia in other chronic diseases classified elsewhere; E05.90 Thyrotoxicosis, unspecified without thyrotoxic crisis or storm; H70.90 Unspecified mastoiditis, unspecified ear; L89.90 Pressure ulcer of unspecified site, unspecified stage; N25.0 Renal osteodystrophy; Y95 Nosocomial condition
CPT/HCPCS: 36415; 36600; 70450-TC; 71045-TC; 80048-TC; 80061-TC; 80076-TC; 80202-TC; 82272-TC; 82803-TC; 82962-TC; 83540-TC; 83605-TC; 83735-TC; 83880; 84100-TC; 84439-TC; 84443-TC; 84484-TC; 85025-TC; 85378-TC; 85730-TC; 86140-TC; 86706; 86850-TC; 87040-TC; 87081-TC; 87340; 93307-TC; 94799-TC; A4216; C9803; G0378; J1100; J1644; J1815; J2405; J2543; J2920; J3370; J7030; J7050; J7060; P9047; Q0161; U0003